=== PATIENT | male | born 1955 | race Caucasian/White ===

== ENCOUNTER 2019-12-17 15:11 | Outpatient (CLI) | payer MEDICARE, SELFPAY ==
--- NOTE | ~2019-12-17 | XR_ITS ---
EXAMINATION: XR chest 2V 12/17/2019 15:39 INDICATION: Cough and shortness of breath PROCEDURE: PA and lateral views of the chest COMPARISON: No prior studies for comparison. FINDINGS: The lungs are clear. The cardiomediastinal silhouette is within normal limits. There are no pleural effusions. There is no pneumothorax suspected. IMPRESSION: 1: NO ACUTE CARDIOPULMONARY DISEASE. Reviewed, dictated and finalized at location B. 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
== END 2019-12-17 15:12 | disposition home or self-care (01) ==
PROVIDERS: PCP Family Medicine; Visit Provider Nurse Practitioner Family
DX: R05 Cough (principal)
CPT/HCPCS: 71046

== ENCOUNTER → 2020-03-28 10:28 | Outpatient (REF) | payer MEDICARE, SELFPAY | LOC: ANHLAB 10:28 | PROVIDERS: PCP Family Medicine; Visit Provider Nurse Practitioner | DX: C44.719 Basal cell carcinoma of skin of left lower limb, including hip (principal) | CPT/HCPCS: 88305 ==

== ENCOUNTER → 2020-05-08 08:59 | Outpatient (REF) | payer MEDICARE, SELFPAY | LOC: ANHLAB 08:59 | PROVIDERS: PCP Family Medicine; Visit Provider Nurse Practitioner | DX: C44.719 Basal cell carcinoma of skin of left lower limb, including hip (principal) | CPT/HCPCS: 88305; 88331 ==

== ENCOUNTER → 2020-06-13 10:55 | Outpatient (CLI) | payer MEDICARE, SELFPAY ==
--- NOTE | ~2020-06-13 | XR_ITS ---
EXAMINATION: XR lumbar spine 2-3V DATE: 06/13/2020 11:38 INDICATION: Low back pain TECHNIQUE: Anteroposterior and lateral views of the lumbar spine, and cone-down lateral view of the l umbosacral junction were obtained. COMPARISON: None. FINDINGS: There is no fracture, dislocation, or subluxation. The vertebral body heights and alignment are normal. There is mild loss of intervertebral disc space height throughout the lumbar spine. Mild facet osteoarthritis is noted in the lower lumbar spine. Small degenerative osteophytes project from the anterior endplates of multiple vertebral bodies. Surgical clips in the right upper quadrant are likely from prior cholecystectomy. IMPRESSION: 1. Mild lumbar spondylosis without acute findings. Reviewed, dictated and finalized at location A.
== END ==
PROVIDERS: PCP Physician Assistant Medical; Visit Provider Physician Assistant Medical
DX: M47.896 Other spondylosis, lumbar region (principal)
CPT/HCPCS: 72100

== ENCOUNTER → 2021-03-27 10:10 | Outpatient (REF) | payer MEDICARE, SELFPAY | LOC: ANHLAB 10:10 | PROVIDERS: PCP Family Medicine; Visit Provider Nurse Practitioner | DX: C44.42 Squamous cell carcinoma of skin of scalp and neck (principal) | CPT/HCPCS: 88305 ==

== ENCOUNTER → 2021-05-14 10:34 | Outpatient (REF) | payer MEDICARE, SELFPAY | LOC: ANHLAB 10:34 | PROVIDERS: PCP Family Medicine; Visit Provider Nurse Practitioner | DX: C44.42 Squamous cell carcinoma of skin of scalp and neck (principal) | CPT/HCPCS: 88305; 88331 ==

== ENCOUNTER → 2022-05-14 13:29 | Outpatient (REF) | payer MEDICARE, SELFPAY | LOC: ANHLAB 13:29 | PROVIDERS: PCP Family Medicine; Visit Provider Nurse Practitioner | DX: C44.612 Basal cell carcinoma of skin of right upper limb, including shoulder (principal) | CPT/HCPCS: 88305 ==

== ENCOUNTER 2022-08-08 10:20 | Outpatient (RCR) | payer MEDICARE, SELFPAY ==
--- NOTE | 2022-08-08 11:54 | PTOPEVAL1 ---
Assessment and note entered by Dianne Luna, PT Evaluation Information Assessment Status Evaluation Diagnosis ataxia, dizziness Onset about month ago Subjective Information problems controlling feet when walking, went forward and could not stop, few of the falls were backwards; in past 2 months fallen 12 times, all occur when walking; use the cane and it helps; can get himself up off the floor when fall--get onto knees and pull self up with arms; did not have any testing done; previously did about 1 &1/ 2 to 2 miles walking for fitness, not done about 2 months; reports head feels like going around, worse when tired; feel better when get a good night's rest; Reported Pain Level Pain Score Self Report Additional Pain Score Comments range 0-10/10 in low back; onset about 1 month ago when fell and hit back on bathtub; sharp pain increases when do more activity; use muscle cream; Assessment PT Clinical Summary Paul has the diagnosis of ataxia and dizziness. He reports multiple falls in the past few months, occur when walking and lose balance--legs get going and cannot stop; Previously he walked for fitness, but has not been doing. With the evaluation, he has weakness of LE's and trunk, decreased walking and activity tolerance-- had SOB with activity; Tinetti gait/balance score is 13/28= high risk for falls; 2 minute walking distance of 320'; increased 5 reps sit/stand time; unsafe with stand to sit transfer; poor gait and mobility, almost falling several times during session; poor gait pattern with shuffling and leaning forward. With brief vestibular evaluation--he has hearing issues, reports of excessive ear wax, increased thirst and head going around--worse when he is tired. He is on multiple meds. Will monitor vestibular issues during treatment, but will start focus on strength and balance. Skilled PT services are indicated for therapeutic exercises and activities to increase LE strength, gait, transfer and balance skills, to improve safety with mobility and decrease risk for future falls. Will educate pt on gait pattern, assistive device as indicated and home exercise program; Address vestibular is
--- NOTE | 2022-08-15 13:02 | PCPTNOTE ---
PHYSICAL THERAPY DISCHARGE 08-15-22 Attending Provider: Jason Tian MD Patient:Paul Hernandez Date of :1955 Patient called today and left a message to cancel all of his PT appointments, due to going to receive [facility] therapy. Therefore, he will be discharged at this time. He had a PT evaluation only on 08/08/2022, for the diagnosis of ataxia and dizziness. Thank you for referring this patient to [facility].
== END 2022-08-15 15:16 | disposition home or self-care (01) ==
LOC: ANHPT 10:20
PROVIDERS: PCP Family Medicine; Visit Provider Family Medicine
DX: R42 Dizziness and giddiness (principal)
CPT/HCPCS: 97110; 97162

== ENCOUNTER 2022-08-12 09:06 | Outpatient (NON) | payer MEDICARE, SELFPAY | END 2022-08-12 09:07 | disposition home or self-care (01) | LOC: ANHLAB 08-27 09:06 | PROVIDERS: PCP Family Medicine; Visit Provider Nurse Practitioner | DX: C44.612 Basal cell carcinoma of skin of right upper limb, including shoulder (principal) | CPT/HCPCS: 88305; 88331 ==

== ENCOUNTER 2023-05-20 12:35 | Outpatient (NON) | payer MEDICARE, SELFPAY | END 2023-05-20 12:36 | disposition home or self-care (01) | PROVIDERS: PCP Family Medicine; Visit Provider Nurse Practitioner | DX: C44.629 Squamous cell carcinoma of skin of left upper limb, including shoulder (principal) | CPT/HCPCS: 88305 ==

== ENCOUNTER 2023-07-12 13:02 | Emergency (ER) | payer MEDICARE, SELFPAY ==
[2023-07-12] VITALS (18 sets, daily range): BP systolic 107–128; BP diastolic 70–87; PULSE 74–89; RESP 13–20; TEMP 36.6; O2SAT 94–99
--- NOTE | ~2023-07-12 | XR_ITS ---
EXAM: XR lumbar spine 2-3V DATE: 07/12/2023 14:42 HISTORY: fall, hit mid back on side of bathtub . COMPARISON: 06/13/2020. FINDINGS: 5 nonrib-bearing lumbar-type vertebral bodies. Pedicles intact. Normal vertebral body alig nment. Stable mild anterior wedge deformity at L1, the remaining vertebral body heights are preserved . Multilevel degenerative disc disease. Multilevel facet arthropathy. No fracture or dislocation. Aor tic calcifications without evident aneurysm IMPRESSION: No acute fracture recommended malalignment detected in the lumbar spine. Reviewed, dictated and finalized at location K. IMPRESSION: No acute fracture recommended malalignment detected in the lumbar s pine.
--- NOTE | ~2023-07-12 | XR_ITS ---
EXAM: XR thoracic spine 3V DATE: 07/12/2023 14:42 HISTORY: fall, hit mid back on side of bathtub . COMPARISON: None available. FINDINGS: Cholecystomy clips. Vertebral body alignment intact. Vertebral body heights preserved. Mult ilevel mild disc space narrowing. Multilevel bridging anterior osteophytes. No traumatic malalignment or fracture. Visualized lung parenchyma is clear. IMPRESSION: No acute fracture or traumatic malalignment detected in the thoracic spine. Reviewed, dictated and finalized at location K. IMPRESSION: No acute fracture or traumatic malalignment detected in the thoraci c spine.
--- NOTE | ~2023-07-12 | CT_ITS ---
EXAMINATION: CT diagnostic chest wo con DATE: 07/12/2023 14:19 INDICATION: fall TECHNIQUE: Computed tomography (CT) of the chest was performed with 100 mL Omnipaque-350 intravenous contrast. Automated exposure control and iterative reconstruction technique were employed. The dose-l ength product was 595.46 mGy-cm. COMPARISON: 12/17/2019. FINDINGS: CHEST: Thoracic aorta: No significant dilation or calcification. Lung parenchyma and airways: Lungs and airways are clear. Thoracic inlet, axillae and chest wall: No thyroid or soft tissue mass. No axillary lymphadenopathy. Mediastinum: No mass or lymphadenopathy. Heart and pericardium: Mild cardiomegaly. No pericardial effusion. Coronary artery calcifications: Moderate. Pleura: No effusion or mass. Upper abdomen: No significant finding. Thoracic bones: No acute osseous finding in the chest. IMPRESSION: No acute traumatic thoracic process detected. Reviewed, dictated and finalized at location K.
--- NOTE | 2023-07-12 13:30 | ED.FALL ---
HPI - Fall General Chief Complaint: Fall Stated Complaint: fall - back pain Time Seen by Provider: 07/12/23 13:12 Source: patient and EMS Mode of arrival: EMS Limitations: no limitations History of Present Illness HPI Narrative: 67 years old white female slipped off the toilet hit the back across the edge of a hot tub. Bathtub was roughly 1 foot away from his back. Patient was sitting on the toilet at that time. Complaining of thoracic back pain across. He denies any other injuries. Pain worse with certain movement and better if he remains still. Related Data Home Medications Medication Instructions Recorded Confirmed aspirin 81 mg tablet,delayed 81 mg PO DAILY 08/30/19 07/11/23 release multivitamin 1 cap PO DAILY 08/30/19 07/11/23 dapagliflozin propanediol 10 mg 10 mg PO QAM 03/20/23 07/11/23 tablet (Farxiga) ferrous sulfate 325 mg (65 mg 325 mg PO ONCE 07/11/23 07/11/23 iron) tablet Allergies Allergy/AdvReac Type Severity Reaction Status Date / Time No Known Allergies Allergy Verified 07/11/23 08:04 Review of Systems Review of Systems: All systems reviewed & are unremarkable except as noted in HPI and below PMFSH Past Medical History Medical History Abnormal electroretinogram [ERG] Abnormal results of thyroid function studies Adult BMI 33.0-33.9 kg/sq m Ataxia BMI 34.0-34.9,adult BMI 36.0-36.9,adult BMI 37.0-37.9, adult BMI over 35 Body mass index [BMI] 37.0-37.9, adult Candidiasis of skin History of SCC (squamous cell carcinoma) of skin Iron deficiency anemia Loss of balance Microalbuminuria Neuropathy Overweight Surgical History Surgical History H/O right knee surgery Hx of heart artery stent Family History Family History Father Diabetes mellitus Mother Diabetes mellitus Family history of Alzheimer's disease Sibling Multiple sclerosis Diabetes mellitus Social History Social History Smoking status: Never smoker Second hand tobacco smoke exposure: No Alcohol intake: current Drinks per week: 6 Substance use: current Substance use type: marijuana Lack of Transportation: No Lack of Food: Never True Current Housing: I Have Housing Concerned About Future Housing: No Difficulty Paying Gas/Electric Bills: No Difficulty Paying for Meds: No Currently Unemployed: No Education: High School Diploma/GED Difficulty w/ Childcare or Family Care: No Living arrangements: with family 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 by the patient): Male Exam Narrative: General appearance: Well-developed, well-nourished Skin: Normal color Head: Normocephalic, nontraumatic Eyes: Clear conjunctiva ENT: Oropharynx normal, ears normal, nose normal Neck: Supple, nontender Chest and respiratory: Airway patent, no respiratory distress, no accessory muscle use Heart: Regular rate/rhythm Abdomen: Soft, nontender, no organomegaly, quiet bowel sounds Vascular: Normal peripheral pulses, normal capillary refill. Musculoskeletal: Diffuse tenderness across thoracolumbar area, no bruises, no swelling or rash, limited range of motion at that area. Neurologic: Alert and oriented ?3, TRAFFIC INSPECTOR is normal as tested, no gross motor deficit Course Reevaluation(s) Reevaluation #1: Feeling much better after IV Dilaudid. Date: 07/12/23 Time: 15:46 Vital Signs Vital signs: Vital Signs
[2023-07-12] MEDS: ONDANSETRON INJ 4 MG/2 ML VIAL IV PUSH (13:59)
[2023-07-12] MEDS: HYDROmorphone HCL INJ (*CRX) 1 MG/ML SYR 0.5 MG IV PUSH (13:59)
== END 2023-07-12 15:55 | disposition home or self-care (01) ==
PROVIDERS: Emergency Provider Emergency Medicine; PCP Family Medicine
DX: S29.9XXA Unspecified injury of thorax, initial encounter (principal); D50.9 Iron deficiency anemia, unspecified; G62.9 Polyneuropathy, unspecified; E66.3 Overweight; Z68.30 Body mass index [BMI] 30.0-30.9, adult; Z95.5 Presence of coronary angioplasty implant and graft; Z85.828 Personal history of other malignant neoplasm of skin; W18.12XA Fall from or off toilet with subsequent striking against object, initial encounter
CPT/HCPCS: 71250; 72072; 72100; 96374; 96375; 99284; J1170; J2405

== ENCOUNTER 2023-08-08 20:28 | Emergency (ER) | payer MEDICARE, SELFPAY ==
--- NOTE | ~2023-08-08 | CT_ITS ---
EXAMINATION: CT diagnostic chest wo con DATE: 08/08/2023 21:28 INDICATION: Chest pain after fall TECHNIQUE: Computed tomography (CT) of the chest was performed without intravenous contrast. The dose -length product (DLP) was 1026.38 mGy-cm. Automated exposure control and iterative reconstruction thien hnique were employed. COMPARISON: 07/12/2023 FINDINGS: There is mild dependent atelectasis. The lungs are free of focal airspace opacities. No ple ural effusion or pneumothorax. There appears to be an anterior fracture of the left fourth rib at the costochondral junction. There are healed posteromedial fractures of the left 10th and 11th ribs. No pathologically enlarged thoracic lymph nodes are identified. The heart size is normal. There is calci fied coronary artery atherosclerosis. Changes of cholecystectomy are noted. There is cortical scarrin g of the kidneys. IMPRESSION: 1. Probable anterior fracture of the left fourth rib at the costochondral junction. Reviewed, dictated and finalized at location F. IMPRESSION: 1. Probable anterior fracture of the left fourth rib at the costochondral junct ion.
[2023-08-08 20:31] VITALS: BP 107/71; PULSE 96; RESP 16; TEMP 36.4; O2SAT 98
--- NOTE | 2023-08-08 20:47 | ECG_ITS ---
Measurements Intervals [place] Rate: 89 P: 25 NH: 168 QRS: 13 QRSD: 88 T: 59 QT: 341 QTc: 416 Interpretive Statements SINUS RHYTHM POSSIBLE ANTERIOR MYOCARDIAL INFARCTION [30 ms Q WAVE IN V3/V4, OR R < 0.2 mV IN V4], OF INDETERMINATE AGE PROBABLE INFERIOR MYOCARDIAL INFARCTION [35 ms Q WAVE IN II/aVF], OF INDETERMINATE AGE LOW-VOLTAGE QRS IN PRECORDIAL LEADS ABNORMAL ECG NO PREVIOUS ECG AVAILABLE FOR COMPARISON Electronically Signed On 08-09-2023 14:36:32 CDT by Jhonny Frazier M.D.
--- NOTE | 2023-08-08 20:55 | ED.GENADULT ---
HPI - General Adult General Chief complaint: Fall Stated complaint: Fall onto tv tray, cp with movement Time Seen by Provider: 08/08/23 20:53 Source: patient Mode of arrival: EMS Limitations: no limitations History of Present Illness HPI narrative: This is a 67-year-old male who presents to the ED via EMS with chief complaint of a fall and subsequent chest pain occurring this evening prior to arrival. Patient reports that he was carrying a TV dinner tray/stand when he was walking through the living room today. Reports that the legs of the tray swelling out and caused him to stumble and he fell onto the tray and onto the ground. Denies any preceding chest pain, shortness of breath or syncope. Denies head injury. He takes a baby aspirin daily. Denies any further site of pain or injury. Denies LOC or head injury. States that the Toradol by EMS gave helped his pain greatly. Related Data Home Medications Medication Instructions Recorded Confirmed aspirin 81 mg tablet,delayed 81 mg PO DAILY 08/30/19 07/11/23 release multivitamin 1 cap PO DAILY 08/30/19 07/11/23 dapagliflozin propanediol 10 mg 10 mg PO QAM 03/20/23 07/11/23 tablet (Farxiga) ferrous sulfate 325 mg (65 mg 325 mg PO ONCE 07/11/23 07/11/23 iron) tablet Allergies Allergy/AdvReac Type Severity Reaction Status Date / Time No Known Allergies Allergy Verified 08/08/23 20:37 Review of Systems Review of Systems: All systems as dictated in HPI [facility] Past Medical History Medical History Abnormal electroretinogram [ERG] Abnormal results of thyroid function studies Adult BMI 33.0-33.9 kg/sq m Ataxia BMI 34.0-34.9,adult BMI 36.0-36.9,adult BMI 37.0-37.9, adult BMI over 35 Body mass index [BMI] 37.0-37.9, adult Candidiasis of skin History of SCC (squamous cell carcinoma) of skin Iron deficiency anemia Loss of balance Microalbuminuria Neuropathy Overweight Surgical History Surgical History H/O right knee surgery Hx of heart artery stent Family History Family History Father Diabetes mellitus Mother Diabetes mellitus Family history of Alzheimer's disease Sibling Multiple sclerosis Diabetes mellitus Social History Social History Smoking status: Never smoker Second hand tobacco smoke exposure: No Alcohol intake: current Drinks per week: 6 Substance use: current Substance use type: marijuana Lack of Transportation: No Lack of Food: Never True Current Housing: I Have Housing Concerned About Future Housing: No Difficulty Paying Gas/Electric Bills: No Difficulty Paying for Meds: No Currently Unemployed: No Education: High School Diploma/GED Difficulty w/ Childcare or Family Care: No Living arrangements: with family 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 by the patient): Male Exam Narrative: GENERAL: Well-appearing, well-nourished, and in no acute distress. HEAD: Normocephalic, atraumatic. EYES: PERRLA and EOMI. ENT: Nares clear, no rhinorrhea or epistaxis. Mucous membranes moist. Oropharynx without tonsillar hypertrophy exudate or other lesions. NECK: Supple. No adenopathy or masses. CHEST: No respiratory distress. Clear to auscultation. No wheezes rales or rhonchi. Mild anterior chest wall tenderness at the left costochondral region. HEART: Regular rate and rhythm. No murmur heard. Normal peripheral pulses. ABDOMEN: Soft, nontender, nondistended, normal active bowel sounds. MSK: Normal range of motion. No edema. SKIN: Warm, dry, no rash. NEURO: Alert and oriented x3. No focal deficits. PSYCH: Normal mood and affect. Course Vital Signs Vital signs: Vital Signs Te
== END 2023-08-08 22:48 | disposition home or self-care (01) ==
PROVIDERS: Emergency Provider Physician Assistant; PCP Family Medicine
DX: S22.32XA Fracture of one rib, left side, initial encounter for closed fracture (principal); Z85.828 Personal history of other malignant neoplasm of skin; Z79.82 Long term (current) use of aspirin; W18.39XA Other fall on same level, initial encounter
CPT/HCPCS: 71250; 93005; 99284

== ENCOUNTER 2023-10-24 13:30 | Outpatient (RCR) | payer MEDICARE, SELFPAY ==
--- NOTE | 2023-09-09 15:32 | OPREHPOC ---
Outpatient Therapy Plan of Care This is a Multidisciplinary Plan of Care that may contain components documented by all disciplines (PT, OT, and ST.) PT Problem 1 PT Problem #1 Knowledge Deficit PT Goal 1 Goal 1* indep with HEP 2* correct use of assistive gait device PT Problem 2 PT Problem #2 Impaired Strength PT Goal 1 Goal increase LE strength, to improve mobility skills and decrease fall risk: pt perform 20 reps with good control 1* R supine SLR 2* L supine SLR 3* R supine hip abduction 4* L supine hip abduction 5* sitting ankle circles R 6* sitting ankle circles L 7* sit/stand without use of UE x 2 reps 18 seat PT Problem 3 PT Problem #3 Impaired Functional Mobil PT Goal 1 Goal 1* TUG with assistive device 18 seconds 2* Tinetti balance score of 24/28 3* 2 minute walking test distance of 250' with assistive device 4* 5 reps sit/stand time of 18 second with use of 1 UE 5* pt report NO falls
--- NOTE | 2023-09-09 15:33 | PTOPEVAL1 ---
Assessment and note entered by Dianne Luna, PT Evaluation Information Assessment Status Evaluation Diagnosis gait and imbalance, LBP Onset December 2022 Subjective Information decreased walking and balance; in the past 6 months have had about 10 falls--2 recent falls due to safety--carrying suitcase and something else in his hands; is not able to get up off the floor have to call EMT's; is getting neuropathy treatment for his legs at chiropractors office--vibration, stim to feet, nutrients to drink and ointments, walk on treadmill; have seen neurologist and had gabapentin only- stopped going about 1 yr ago; Activity: have 2 entry steps from garage; have chair lift on basement stairs; does light cleaning and home tasks; indep with bathing and dressing except socks; live with Ivy--she assist with socks.use motorized scooter for shopping- does not walk long distances; use cane about past year; have wheeled walker at home, but not using; have low back pain due to falls; GOAL: walk on his own without any problems; Reported Pain Level Pain Score 5: Self Report Additional Pain Score Comments numbness in both legs Assessment PT Clinical Summary Don has the diagnosis of gait imbalance, falls. And order from Sept for back pain. He reports gradual decrease strength of legs, with falls and have back pain due to multiple falls. He uses a cane all the time and does not want to use a wheeled walker-- get tangled up in it. He no longer drives due to weakness and significant other provides transportation. His medical history includes neuropathy of both legs, R TRK, diabetes. PT orders for back pain- but will defer those for now. With the evaluation: his gait pattern is Parkinson's like--festering, small, shuffling steps; he has weakness of both legs, with L weaker than R and decreased motor control; balance and gait scores
--- NOTE | 2023-09-15 15:40 | PCPTNOTE ---
Pt. did not show for 09/15/23 appointment.
--- NOTE | 2023-09-22 14:01 | PCPTNOTE ---
Pt NS visit this afternoon and was unable to be reached due to no Voicemail box set up.
--- NOTE | 2023-10-08 13:05 | PCPTNOTE ---
Patient called & cancelled scheduled appointment this date due to being sick.
--- NOTE | 2023-10-10 13:34 | PCPTNOTE ---
Patient did not show up for appointment 10/10/23.
--- NOTE | 2023-10-15 13:27 | PTOPPROG ---
Assessment and note entered by Dianne Luna, PT Progress report Information Assessment Status Progress Diagnosis gait and imbalance, LBP Onset December 2022 Subjective Information Don reports he is walking farther since coming for therapy; has had one fall since coming for therapy; is doing the neuropathy treatment exercises at home--electrical charges to feet; want to continue therapy; girlfriend reports he has improved and want him to continue; Discussion with them about seeing a neurologist--? Parkinson's Disease; he reports his dad had Parkinson's; Assessment PT Clinical Summary Don has received 8 PT sessions; he called/cancel 1 and did not show for 3 appointments. Compared to the initial evaluation: improved with R and L LE strength with supine exercises; sit/ stand transfer still requires 1 UE from 18 seat; TUG from 20 to 15 seconds; Tinetti balance by one, from to 10/09= high risk for falls; 2 minute walking test distance from 160' to 200' with cane; 5 reps sit/stand time from 26 to 21 seconds. Education for home exercises and safety with gait. He continues to use the cane, does not want to use the wheeled walker, Poor gait pattern and poor transfer safety with sit/stand transfer. His gait pattern is small, shuffling and festering steps-- -Parkinson's like gait; He has had one fall since starting therapy. Recommend neurology consult for R/O Parkinson's disease; his father had Parkinson's. Continue PT 1x/week for 5 weeks. Plan of Care Interventions Gait Training,Neuro Re-education,Patient/Caregiver Education,Therapeutic Activities,Therapeutic Exercise PT Services Indicated Yes Treatment Frequency and 1x/wk for 5 weeks Duration These treatments will address the objective and functional deficits as defined above. The patient will be advanced safely and appropriately in order for the patient to progress towards his/her prior level of function. Additional exercises will be introduced and as well as a comprehensive home exercise program upon discharge, if needed, ?to ensure carryover of functional gains achieved in the clinic. This treatment plan has been reviewed and agreement upon by the patient.
--- NOTE | 2023-10-15 13:27 | OPREHPOC ---
Outpatient Therapy Plan of Care This is a Multidisciplinary Plan of Care that may contain components documented by all disciplines (PT, OT, and ST.) PT Problem 1 PT Problem #1 Knowledge Deficit PT Goal 1 Goal 1* indep with HEP 2* correct use of assistive gait device Progress Partially Met Comment 10-15-23- progress met goal 1 continue towards goals PT Problem 2 PT Problem #2 Impaired Strength PT Goal 1 Goal increase LE strength, to improve mobility skills and decrease fall risk: pt perform 20 reps with good control 1* R supine SLR 2* L supine SLR 3* R supine hip abduction 4* L supine hip abduction 5* sitting ankle circles R 6* sitting ankle circles L 7* sit/stand without use of UE x 2 reps 18 seat Progress Partially Met Comment 10-15-23- progress met goals 2,5; cibtubye towards goals PT Problem 3 PT Problem #3 Impaired Functional Mobil PT Goal 1 Goal 1* TUG with assistive device 18 seconds 2* Tinetti balance score of 24/28 3* 2 minute walking test distance of 250' with assistive device 4* 5 reps sit/stand time of 18 second with use of 1 UE 5* pt report NO falls Progress Partially Met Comment 10-15-23- progress met goals 1,4 continue towards goals
--- NOTE | 2023-10-24 14:31 | PCPTNOTE ---
Cancelled pt appt due to new order of only once a week.
--- NOTE | 2023-10-31 13:58 | PCPTNOTE ---
Pt NS visit for second time this week.
--- NOTE | 2023-11-07 13:50 | PCPTNOTE ---
Pt no showed visit today. Called and voicemail has not be set up on his phone yet.
--- NOTE | 2023-11-10 08:59 | PTOPDC ---
Assessment and note entered by Dianne Luna, PT DISCHARGE Information Assessment Status Discharge - Pt Not Present Diagnosis gait and imbalance, LBP Onset December 2022 Assessment PT Clinical Summary Mr. Hernandez received 8 PT sessions, from Sep 09 to Oct 15. He then stopped attending his appointments He had a total of 5 no show and 1 call/cancel appointments. The goals were not assessed. Discharge PT due to pt stopped attending. Plan of Care PT Services Indicated No
== END 2023-11-10 09:52 | disposition home or self-care (01) ==
LOC: ANHPT 13:30
PROVIDERS: PCP Family Medicine; Visit Provider Family Medicine
DX: M54.50 Low back pain, unspecified (principal); R27.0 Ataxia, unspecified
CPT/HCPCS: 97110; 97116; 97162; 97530; 99199

== ENCOUNTER 2024-02-26 14:28 | Observation (INO) | payer MEDICARE, SELFPAY ==
[2024-02-26] VITALS (7 sets, daily range): BP systolic 111–129; BP diastolic 76–99; PULSE 81–95; RESP 13–19; TEMP 36.1–37.1; O2SAT 96–99; BMI 30.4
--- NOTE | ~2024-02-26 | CT_ITS ---
EXAMINATION: CTA brain carotid DATE: 02/26/2024 16:23 INDICATION: Vertigo. TECHNIQUE: Computed tomographic angiography (CTA) of the head was performed without and with 100 mL O mnipaque-350 intravenous contrast. CTA of the neck was performed with intravenous contrast. Automated exposure control and iterative reconstruction technique were employed. The dose-length product was 2 523.48 mGy-cm. Maximum intensity projection and volume rendered 3D-reconstructions were created by michele cotton technologist on a separate workstation. COMPARISON: None. FINDINGS: HEAD CTA: There are old lacunar infarcts in the bilateral basal ganglia. There are scattered areas of low attenuation in the cerebral white matter, which is within normal limits for the patient's age. T here is no intracranial hemorrhage, acute infarction, or abnormal intracranial mass lesion. The ventr icles are normal in size. There is mild mucosal thickening in the ethmoid sinuses. The orbits are nor mal. The mastoid air cells are normal. Left vertebral artery is dominant. There is no significant janice nosis of basilar artery or the posterior cerebral arteries. There is no significant stenosis of the i ntracranial internal carotid arteries or anterior or middle cerebral arteries. Anterior communicating artery is normal. The posterior communicating arteries are normal. NECK CTA: There is no significant stenosis of the vertebral arteries. There is plaque in the proximal internal carotid arteries. There is 0% stenosis of the proximal right internal carotid artery relati ve to normal distal artery lumen diameter (NASCET criteria). There is 0% stenosis of the proximal lef t internal carotid artery relative to normal distal artery lumen diameter. There is severe cervical s pondylosis. IMPRESSION: 1. 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 2. No aneurysm or significant intracranial arterial stenosis. 3. 0% stenosis of the proximal internal carotid arteries relative to normal distal artery lumen diame ters (NASCET criteria). Reviewed, dictated and finalized at location E. IMPRESSION: 1. 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 2. No aneurysm or significant intracranial arterial stenosis. 3. 0% stenosis of the proximal internal carotid arteries relative to normal dis hayden artery lumen diameters (NASCET criteria).
--- NOTE | ~2024-02-26 | XR_ITS ---
EXAMINATION: XR chest 2V DATE: 02/26/2024 15:36 INDICATION: Weakness. Falls. TECHNIQUE: Frontal and lateral views of the chest were obtained. COMPARISON: Chest 2 views 12/17/2019, chest CT 08/08/2023 FINDINGS: There is no pneumonia, pleural effusion, or pneumothorax. The heart size is normal. IMPRESSION: 1. No acute cardiopulmonary disease. Reviewed, dictated and finalized at location E.
[2024-02-26 14:35] LABS: Glucose Point of Care 193 mg/dl (65-105)
--- NOTE | 2024-02-26 15:03 | ECG_ITS ---
SEE SCANNED COPY FOR CONFIRMED REPORT MTDD
[2024-02-26 15:23] LABS: Basophils Percent Auto 0.3 % (0.2-1.2); Eosinophils Absolute Auto 0.2 K/mm3 (0-0.3); Eosinophils Percent Auto 2.2 % (0-4.4); Hematocrit 45.7 % (42.0-52.0); Hemoglobin 15.4 g/dL (14.0-18.0); Immature Granulocyte Absolute 0.04 K/mm3 (0.00-0.031); Immature Granulocyte Percent A 0.6 % (0-0.5); Lymphocytes Percent Auto 18.8 % (18.3-44.2); Mean Corpuscular HGB Conc 33.7 g/dl (32-36); Mean Corpuscular Hemoglobin 31.6 pg (26-34); Mean Corpuscular Volume 93.8 fl (80-100); Monocytes Absolute Auto 0.4 K/mm3 (0.1-0.6); Monocytes Percent Auto 5.2 % (2.6-8.5); Neutrophils Percent Auto 72.9 % (45.5-73.1); Platelet Count Result 200 k/mm3 (150-375); Red Blood Count 4.87 M/mm3 (4.6-6.20); Red Cell Distribution Width 13.2 % (11.5-14.5); White Blood Count 6.9 K/mm3 (4.5-10.0)
[2024-02-26 15:32] LABS: Alanine Aminotransferase 25 U/L (6-50); Albumin Level 4.3 g/dL (3.5-5.1); Alkaline Phosphatase 80 U/L (38-126); Anion Gap 6 mmol/L (4-12); Aspartate Amino Transferase 24 U/L (17-59); Bilirubin,Total 0.5 mg/dL (0.2-1.3); Blood Urea Nitrogen 11 mg/dL (9-20); Calcium 9.5 mg/dL (8.4-10.2); Carbon Dioxide 26 mmol/L (22-30); Chloride 105 mmol/L (98-107); Estimated CRCL calculation 75 ml/min; Estimated Glomerular Filt Rate > 60; Glucose 150 mg/dL (65-110); Potassium 3.9 mmol/L (3.4-5.0); Sodium 137 mmol/L (137-145)
--- NOTE | 2024-02-26 16:03 | ED.FALL ---
HPI - Fall General Chief Complaint: Fall Stated Complaint: fall, weak Time Seen by Provider: 02/26/24 15:08 History of Present Illness HPI Narrative: This is a 68-year-old male, with history of diabetes and hypertension, who presents to the emergency department complaining persistent vertigo and multiple falls. The patient states 5 days ago, he fell 4 times at home. He fell twice again in the last 3 days. He states he hit his head but did not lose consciousness. He denies use of blood thinners aside from aspirin. He complains of vertigo, worsened by change in position. He states he has taken meclizine previously with improvement. He denies ear pain, ringing in the ears, loss of hearing, weakness/numbness, change/loss of vision/hearing, chest pain or shortness of breath. He states he also has a history of neuropathy. Related Data Home Medications Medication Instructions Recorded Confirmed aspirin 81 mg tablet,delayed 81 mg PO DAILY 08/30/19 10/16/23 release multivitamin 1 cap PO DAILY 08/30/19 10/16/23 dapagliflozin propanediol 10 mg 10 mg PO QAM 03/20/23 10/16/23 tablet (Farxiga) ferrous sulfate 325 mg (65 mg 325 mg PO ONCE 07/11/23 10/16/23 iron) tablet lisinopril 20 mg tablet mg PO DAILY 10/16/23 10/16/23 Allergies Allergy/AdvReac Type Severity Reaction Status Date / Time No Known Allergies Allergy Verified 01/12/24 17:35 Review of Systems Review of Systems: All systems reviewed & are unremarkable except as noted in HPI and below PMFSH Past Medical History Medical History Abnormal electroretinogram [ERG] Abnormal results of thyroid function studies Adult BMI 33.0-33.9 kg/sq m Ataxia BMI 34.0-34.9,adult BMI 36.0-36.9,adult BMI 37.0-37.9, adult BMI over 35 Body mass index [BMI] 37.0-37.9, adult Candidiasis of skin Decreased independence with activities of daily living History of SCC (squamous cell carcinoma) of skin Hypertensive heart disease with heart failure Iron deficiency anemia Loss of balance Microalbuminuria Neuropathy Overweight Recurrent falls Surgical History Surgical History H/O right knee surgery Hx of heart artery stent Family History Family History Father Diabetes mellitus Mother Diabetes mellitus Family history of Alzheimer's disease Sibling Multiple sclerosis Diabetes mellitus Social History Social History Smoking status: Never smoker Second hand tobacco smoke exposure: No Alcohol intake: current Drinks per week: 6 Substance use: current Substance use type: marijuana Lack of Transportation: No Lack of Food: Never True Current Housing: I Have Housing Concerned About Future Housing: No Difficulty Paying Gas/Electric Bills: No Difficulty Paying for Meds: No Currently Unemployed: No Education: High School Diploma/GED Difficulty w/ Childcare or Family Care: No Living arrangements: with family 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 by the patient): Male Exam Narrative: GENERAL: Well-developed, well-nourished, and in no acute distress. HEAD: Normocephalic, atraumatic. EYES: PERRLA and EOMI. Nystagmus with fast phase towards the right ENT: Nares clear, no rhinorrhea or epistaxis. Mucous membranes moist. Oropharynx without tonsillar hypertrophy exudate or other lesions. Bilateral TMs pearly morales nonbulging CHEST: Clear to auscultation. No respiratory distress. No wheezes rales or rhonchi HEART: Regular rate and rhythm. No murmur heard. Normal peripheral pulses. ABDOMEN: Soft, nontender, nondistended, normal active bowel sounds. EXTREMITIES: Normal range of motion. No edema. SKIN: Warm, dry, no rash.
[2024-02-26 16:40] LABS: Appearance Urine Clear (Clear); Bilirubin Urine Negative (Negative); Blood Urine Negative (Negative); Color Urine Yellow (Yellow); Glucose Urine UA 2+ mg/dL (Negative); Ketones Urine Negative (Negative); Leukocyte Esterase Ur Negative LEU/UL (Negative); Nitrate Urine Negative (Negative); Protein Urine Negative (Negative); Specific Grav Ur 1.009 (1.001-1.035); Urobilinogen Urine 0.2 mg/dL (<2.0)
[2024-02-26 17:39] LABS: Add Urine Microscopic? NO
[2024-02-26 18:03] LABS: Glucose Point of Care 49 mg/dl (65-105)
--- NOTE | 2024-02-26 18:48 | PC.NURSE ---
This patient, Paul Hernandez, was admitted to 3 [facility] Surg Room 300-01. Patient/family oriented to hospital policies and general routines including ID bracelet, bed and alarms, visiting hours, pain management, procedures, bathroom and other care routines, personal items, smoking policy, room service/diet, and visiting hours. Information on how to activate the Rapid Response Team has been discussed. Patient/Family are encouraged to report perceived risks to care and to ask questions if they do not understand what they are told or what they should do.
[2024-02-26 19:00] LABS: Glucose Point of Care 129 mg/dl (65-105)
[2024-02-26 21:21] LABS: Glucose Point of Care 161 mg/dl (65-105)
--- NOTE | 2024-02-26 21:37 | PM.IMHP ---
H&P: HPI History of Present Illness Date/Time: 02/26/24 21:37 Chief Complaint: recurrent falls Narrative: this is a 68-year-old male with past medical history significant for insulin-dependent diabetes mellitus, diabetic peripheral neuropathy, gait disturbance. patient presents to the emergency room due to recurrent falls he attributes it to his peripheral neuropathy he was using his walker when he fell. Denies loss of consciousness, no chest pain, no palpitations, no dizziness, no focal weakness, no fevers no rigors no chills, no nausea no vomiting no diarrhea. EXAMINATION: XR chest 2V DATE: 02/26/2024 15:36 INDICATION: Weakness. Falls. TECHNIQUE: Frontal and lateral views of the chest were obtained. COMPARISON: Chest 2 views 12/17/2019, chest CT 08/08/2023 FINDINGS: There is no pneumonia, pleural effusion, or pneumothorax. The heart size is normal. IMPRESSION: 1. No acute cardiopulmonary disease. EXAMINATION: CTA brain carotid DATE: 02/26/2024 16:23 INDICATION: Vertigo. TECHNIQUE: Computed tomographic angiography (CTA) of the head was performed without and with 100 mL Omnipaque-350 intravenous contrast. CTA of the neck was performed with intravenous contrast. Automated exposure control and iterative reconstruction technique were employed. The dose-length product was 2523.48 mGy-cm. Maximum intensity projection and volume rendered 3D-reconstructions were created by the technologist on a separate workstation. COMPARISON: None. FINDINGS: HEAD CTA: There are old lacunar infarcts in the bilateral basal ganglia. There are scattered areas of low attenuation in the cerebral white matter, which is within normal limits for the patient's age. There is no intracranial hemorrhage, acute infarction, or abnormal intracranial mass lesion. The ventricles are normal in size. There is mild mucosal thickening in the ethmoid sinuses. The orbits are normal. The mastoid air cells are normal. Left vertebral artery is dominant. There is no significant stenosis of basilar artery or the posterior cerebral arteries. There is no significant stenosis of the intracranial internal carotid arteries or anterior or middle cerebral arteries. Anterior communicating artery is normal. The posterior communicating arteries are normal. NECK CTA: There is no significant stenosis of the vertebral arteries. There is plaque in the proximal internal carotid arteries. There is 0% stenosis of the proximal right internal carotid artery relative to normal distal artery lumen diameter (NASCET criteria). There is 0% stenosis of the proximal left internal carotid artery relative to normal distal artery lumen diameter. There is severe cervical spondylosis. IMPRESSION: 1. 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 2. No aneurysm or significant intracranial arterial stenosis. 3. 0% stenosis of the proximal internal carotid arteries relative to normal distal artery lumen diameters (NASCET criteria). Review of Systems Review of Systems: Recurrent falls, gait disturbance [facility] Past Medical History Medical History Abnormal electroretinogram [ERG] Abnormal results of thyroid function studies Adult BMI 33.0-33.9 kg/sq m Ataxia BMI 34.0-34.9,adult BMI 36.0-36.9,adult BMI 37.0-37.9, adult BMI over 35 Body mass index [BMI] 37.0-37.9, adult Candidiasis of skin Decreased independence with activities of daily living History of SCC (squamous cell carcinoma) of skin Hypertensive heart disease with heart failure Iron deficiency anemia Loss of balance Microalbuminuria Neuropathy Overweight Recurrent falls Surgical History Surgical History H/O right knee surgery Hx of heart artery stent Family History Family History Father Diabetes mellitus Mother Diabetes mellitus Family
[2024-02-26] MEDS: INSULIN GLARGINE (*BKC) 100 UNITS/ML 20 UNITS SUB-Q (22:12)
[2024-02-27 05:43] VITALS: BP 122/88; PULSE 86; RESP 18; TEMP 36.6; O2SAT 98
[2024-02-27 07:22] LABS: Basophils Percent Auto 0.3 % (0.2-1.2); Eosinophils Absolute Auto 0.2 K/mm3 (0-0.3); Eosinophils Percent Auto 2.1 % (0-4.4); Hematocrit 43.6 % (42.0-52.0); Hemoglobin 14.1 g/dL (14.0-18.0); Immature Granulocyte Absolute 0.04 K/mm3 (0.00-0.031); Immature Granulocyte Percent A 0.5 % (0-0.5); Mean Corpuscular HGB Conc 32.3 g/dl (32-36); Mean Corpuscular Hemoglobin 31.4 pg (26-34); Mean Corpuscular Volume 97.1 fl (80-100); Mean Platelet Volume 9.4 fl (7.4-10.4); Monocytes Absolute Auto 0.5 K/mm3 (0.1-0.6); Monocytes Percent Auto 6.2 % (2.6-8.5); Neutrophils Percent Auto 68.9 % (45.5-73.1); Platelet Count Result 199 k/mm3 (150-375); Red Blood Count 4.49 M/mm3 (4.6-6.20); Red Cell Distribution Width 13.3 % (11.5-14.5); White Blood Count 7.3 K/mm3 (4.5-10.0)
[2024-02-27 07:33] LABS: Anion Gap 5 mmol/L (4-12); Blood Urea Nitrogen 11 mg/dL (9-20); Calcium 8.7 mg/dL (8.4-10.2); Carbon Dioxide 28 mmol/L (22-30); Chloride 104 mmol/L (98-107); Estimated CRCL calculation 75 ml/min; Estimated Glomerular Filt Rate > 60; Glucose 186 mg/dL (65-110); Potassium 3.9 mmol/L (3.4-5.0); Sodium 137 mmol/L (137-145)
[2024-02-27 07:35] LABS: Glucose Point of Care 199 mg/dl (65-105)
[2024-02-27] MEDS: lisinopriL 20 MG TABLET PO (08:24)
[2024-02-27] MEDS: ASPIRIN 81 MG ENTERIC TABLET PO (08:24)
[2024-02-27] MEDS: PREGABALIN (*CRX) 50 MG CAPSULE 100 MG PO (08:24)
[2024-02-27] MEDS: EMPAGLIFLOZIN 25 MG TABLET BY MOUTH (08:25)
[2024-02-27] MEDS: ATORVASTATIN 40 MG TABLET BY MOUTH (08:25)
[2024-02-27] MEDS: amLODIPine BESYLATE 5 MG TABLET PO (08:25)
[2024-02-27] MEDS: PRIMIDONE 50 MG TABLET 100 MG BY MOUTH ×3 (08:25→16:58)
[2024-02-27 08:38] VITALS: BP 122/81
--- NOTE | 2024-02-27 08:41 | PM.IMPN ---
Progress Note: A&P Assessment and Plan (1) Recurrent falls: Code(s): R29.6 - Repeated falls Status: Acute (2) Hypertensive heart disease with heart failure: Code(s): I11.0 - Hypertensive heart disease with heart failure Status: Acute (3) Diabetic neuropathy: Qualifiers: Diabetes mellitus complication detail: diabetic autonomic neuropathy Diabetes mellitus type: type 2 Qualified Code(s): E11.43 - Type 2 diabetes mellitus with diabetic autonomic (poly)neuropathy Code(s): E11.40 - Type 2 diabetes mellitus with diabetic neuropathy, unspecified Status: Acute (4) Neuropathy of both feet: Code(s): G57.93 - Unspecified mononeuropathy of bilateral lower limbs Status: Acute (5) T2DM (type 2 diabetes mellitus): Code(s): E11.9 - Type 2 diabetes mellitus without complications Status: Acute (6) Vertigo: Code(s): R42 - Dizziness and giddiness Status: Acute (7) Iron deficiency anemia: Qualifiers: Iron deficiency anemia type: chronic blood loss Qualified Code(s): D50.0 - Iron deficiency anemia secondary to blood loss (chronic) Code(s): D50.9 - Iron deficiency anemia, unspecified Status: Acute Plan Recurrent falls Likely secondary to patient's vertigo CTA no acute findings 0% stenosis of the carotid Orthostatics pending UA negative PT OT/family requesting SNF Fall risk precautions EKG was sinus rhythm Vertigo Resume patient's meclizine changed from p.r.n. to scheduled PT OT with Vestibular therapy Fall precautions Diabetes Accu-Cheks a.c. HS sliding scale insulin resume patient's home long-acting Hemoglobin A1c goal less than 7 pending Diabetic diet Optimize Wally inhibitors and statins. Watch for hypoglycemia/hypoglycemic protocol ordered Anemia History of iron deficiency anemia Resume iron supplements Monitor H&H Transfuse if Hgb <7.0 HX HTN: Resumed home medications HX HLD: Resumed Statin HX neuropathy: Resume patient's Lyrica Code status: Full code per patient DVT prophylaxis: Lovenox Stress ulcer prophylaxis: Protonix 40 daily PT/OT notes: PT/OT family requesting SNF Disposition: Patient was admitted to the medical unit due to recurrent falls at home has history of vertigo will resume meclizine and order PT OT family at this time was requesting possible placement to Rehab. Time Spent With Patient Time with patient: 15 - 25 minutes Subjective Date/time seen: 02/27/24 08:41 Interval history: Admission: Medical Record This is a 68-year-old male with past medical history significant for insulin-dependent diabetes mellitus, diabetic peripheral neuropathy, gait disturbance. patient presents to the emergency room due to recurrent falls he attributes it to his peripheral neuropathy he was using his walker when he fell.? Denies loss of consciousness, no chest pain, no palpitations, no dizziness, no focal weakness, no fevers no rigors no chills, no nausea no vomiting no diarrhea. 02/26: Patient up in chair states he feels a little bit better today. He reports worsening weakness for the few weeks is agreeable to Rehab. Orthostatic BP pending, resumed his meclizine and ordered vestibular therapy. Review of Systems Review of Systems: Recurrent falls, gait disturbance All systems reviewed & are unremarkable except as noted in HPI and below Exam Narrative: Physical Exam: GENERAL: Alert and oriented x 3. No acute distress. EYES: EOMI. No scleral icterus. PERRLA. HEENT: Moist mucous membranes. LUNGS: Clear to auscultation bilaterally. No accessory muscle use. CARDIOVASCULAR: Regular rate and rhythm. No murmur. No JVD. S1-S2 ABDOMEN: Soft, mild tenderness and non-distended. No palpable masses. EXTREMITIES: No edema. Non-tender SKIN: No rashes or lesions. Skin warm, dry. NEUROLOGIC: No focal neurological deficits. CN II-XII grossl
[2024-02-27] MEDS: MECLIZINE HCL 25 MG TABLET PO ×2 (11:34→16:58)
[2024-02-27] MEDS: PANTOPRAZOLE 40 MG TABLET PO (11:34)
[2024-02-27 11:45] LABS: Glucose Point of Care 212 mg/dl (65-105)
[2024-02-27] MEDS: INSULIN ASPART (*BKC) 100 UNITS/ML 7 UNITS SUB-Q ×2 (11:59→16:54)
[2024-02-27 14:00] VITALS: BP 118/85; PULSE 96; RESP 16; TEMP 36.9; O2SAT 99
[2024-02-27 14:43] VITALS: BP 118/85; BP 130/50
[2024-02-27 16:43] LABS: Glucose Point of Care 215 mg/dl (65-105)
[2024-02-27 20:48] LABS: Glucose Point of Care 174 mg/dl (65-105)
[2024-02-27 21:19] VITALS: BP 143/89; PULSE 81; RESP 20; TEMP 36.8; O2SAT 98
[2024-02-27] MEDS: INSULIN GLARGINE (*BKC) 100 UNITS/ML 20 UNITS SUB-Q (22:27)
[2024-02-28 05:00] VITALS: BP 119/96; PULSE 69; RESP 16; TEMP 36.3; O2SAT 94
[2024-02-28 07:23] LABS: Glucose Point of Care 142 mg/dl (65-105)
[2024-02-28 08:00] VITALS: PULSE 94; RESP 20; O2SAT 96
[2024-02-28 08:16] LABS: Hematocrit 44.5 % (42.0-52.0); Hemoglobin 14.9 g/dL (14.0-18.0); Mean Corpuscular HGB Conc 33.5 g/dl (32-36); Mean Corpuscular Hemoglobin 31.9 pg (26-34); Mean Corpuscular Volume 95.3 fl (80-100); Mean Platelet Volume 9.1 fl (7.4-10.4); Platelet Count Result 216 k/mm3 (150-375); Red Blood Count 4.67 M/mm3 (4.6-6.20); Red Cell Distribution Width 13.3 % (11.5-14.5); White Blood Count 6.7 K/mm3 (4.5-10.0)
[2024-02-28 08:34] LABS: Alanine Aminotransferase 23 U/L (6-50); Alkaline Phosphatase 82 U/L (38-126); Anion Gap 6 mmol/L (4-12); Aspartate Amino Transferase 23 U/L (17-59); Bilirubin,Total 0.5 mg/dL (0.2-1.3); Blood Urea Nitrogen 15 mg/dL (9-20); Calcium 9.1 mg/dL (8.4-10.2); Carbon Dioxide 29 mmol/L (22-30); Chloride 104 mmol/L (98-107); Estimated CRCL calculation 69 ml/min; Estimated Glomerular Filt Rate > 60; Glucose 134 mg/dL (65-110); Sodium 139 mmol/L (137-145)
[2024-02-28 09:08] VITALS: O2SAT 93
--- NOTE | 2024-02-28 09:37 | PM.IMPN ---
Progress Note: A&P Assessment and Plan (1) Recurrent falls: Code(s): R29.6 - Repeated falls Status: Acute (2) Hypertensive heart disease with heart failure: Code(s): I11.0 - Hypertensive heart disease with heart failure Status: Acute (3) Diabetic neuropathy: Qualifiers: Diabetes mellitus complication detail: diabetic autonomic neuropathy Diabetes mellitus type: type 2 Qualified Code(s): E11.43 - Type 2 diabetes mellitus with diabetic autonomic (poly)neuropathy Code(s): E11.40 - Type 2 diabetes mellitus with diabetic neuropathy, unspecified Status: Acute (4) Neuropathy of both feet: Code(s): G57.93 - Unspecified mononeuropathy of bilateral lower limbs Status: Acute (5) T2DM (type 2 diabetes mellitus): Code(s): E11.9 - Type 2 diabetes mellitus without complications Status: Acute (6) Vertigo: Code(s): R42 - Dizziness and giddiness Status: Acute (7) Iron deficiency anemia: Qualifiers: Iron deficiency anemia type: chronic blood loss Qualified Code(s): D50.0 - Iron deficiency anemia secondary to blood loss (chronic) Code(s): D50.9 - Iron deficiency anemia, unspecified Status: Acute Plan Recurrent falls Likely secondary to patient's vertigo CTA no acute findings 0% stenosis of the carotid Orthostatics pending UA negative PT OT/family requesting SNF Fall risk precautions EKG was sinus rhythm Vertigo Resume patient's meclizine changed from p.r.n. to scheduled PT OT with Vestibular therapy Fall precautions Diabetes Accu-Cheks a.c. HS sliding scale insulin resume patient's home long-acting Hemoglobin A1c goal less than 7 pending Diabetic diet Optimize Wally inhibitors and statins. Watch for hypoglycemia/hypoglycemic protocol ordered Anemia History of iron deficiency anemia Resume iron supplements Monitor H&H Transfuse if Hgb <7.0 HX HTN: Resumed home medications HX HLD: Resumed Statin HX neuropathy: Resume patient's Lyrica Code status: Full code per patient DVT prophylaxis: Lovenox Stress ulcer prophylaxis: Protonix 40 daily PT/OT notes: PT/OT recommending SNF Disposition: Patient was admitted to the medical unit due to recurrent falls at home has history of vertigo will resume meclizine and order PT OT plan is for discharge to SNF. Time Spent With Patient Time with patient: 15 - 25 minutes Subjective Date/time seen: 02/28/24 09:37 Interval history: Admission: Medical Record This is a 68-year-old male with past medical history significant for insulin-dependent diabetes mellitus, diabetic peripheral neuropathy, gait disturbance. patient presents to the emergency room due to recurrent falls he attributes it to his peripheral neuropathy he was using his walker when he fell.? Denies loss of consciousness, no chest pain, no palpitations, no dizziness, no focal weakness, no fevers no rigors no chills, no nausea no vomiting no diarrhea. 02/26: Patient up in chair states he feels a little bit better today. He reports worsening weakness for the few weeks is agreeable to Rehab. Orthostatic BP pending, resumed his meclizine and ordered vestibular therapy. 02/27: Patient pleasant in no acute distress however is impulsive. Patient's orthostatics were negative however states he is feeling better with vestibular therapy and meclizine. Currently just waiting on insurance authorization for snf facility. Labs unremarkable and vital stable. Review of Systems Review of Systems: Recurrent falls, gait disturbance All systems reviewed & are unremarkable except as noted in HPI and below Exam Narrative: Physical Exam: GENERAL: Alert and oriented x 3. No acute distress. EYES: EOMI. No scleral icterus. PERRLA. HEENT: Moist mucous membranes. LUNGS: Clear to auscultation bilaterally. No accessory muscle use. CARDIOVA
[2024-02-28] MEDS: lisinopriL 20 MG TABLET PO (09:55)
[2024-02-28] MEDS: PRIMIDONE 50 MG TABLET 100 MG BY MOUTH ×3 (09:55→17:54)
[2024-02-28] MEDS: PREGABALIN (*CRX) 50 MG CAPSULE 100 MG PO (09:55)
[2024-02-28] MEDS: ASPIRIN 81 MG ENTERIC TABLET PO (09:55)
[2024-02-28] MEDS: MECLIZINE HCL 25 MG TABLET PO ×2 (09:56→17:54)
[2024-02-28] MEDS: EMPAGLIFLOZIN 25 MG TABLET BY MOUTH (10:01)
[2024-02-28] MEDS: ATORVASTATIN 40 MG TABLET BY MOUTH (10:01)
[2024-02-28] MEDS: PANTOPRAZOLE 40 MG TABLET PO (10:02)
[2024-02-28] MEDS: amLODIPine BESYLATE 5 MG TABLET PO (10:02)
[2024-02-28] MEDS: INSULIN ASPART (*BKC) 100 UNITS/ML 7 UNITS SUB-Q ×3 (10:04→17:54)
[2024-02-28 11:44] LABS: Glucose Point of Care 213 mg/dl (65-105)
[2024-02-28 14:00] VITALS: BP 145/91; PULSE 94; RESP 20; TEMP 36.6; O2SAT 96
[2024-02-28 16:39] LABS: Glucose Point of Care 175 mg/dl (65-105)
[2024-02-28] MEDS: INSULIN GLARGINE (*BKC) 100 UNITS/ML 20 UNITS SUB-Q (21:08)
[2024-02-28 21:10] LABS: Glucose Point of Care 172 mg/dl (65-105)
[2024-02-28 21:14] VITALS: BP 137/94; PULSE 78; RESP 18; TEMP 36.8; O2SAT 95
[2024-02-29 06:00] VITALS: BP 157/96; PULSE 72; RESP 18; TEMP 36.7; O2SAT 100
[2024-02-29 06:31] LABS: Hematocrit 48.3 % (42.0-52.0); Mean Corpuscular HGB Conc 33.1 g/dl (32-36); Mean Corpuscular Hemoglobin 31.6 pg (26-34); Mean Corpuscular Volume 95.5 fl (80-100); Platelet Count Result 212 k/mm3 (150-375); Red Blood Count 5.06 M/mm3 (4.6-6.20); Red Cell Distribution Width 13.5 % (11.5-14.5); White Blood Count 7.2 K/mm3 (4.5-10.0)
[2024-02-29 06:36] LABS: Alanine Aminotransferase 28 U/L (6-50); Albumin Level 4.3 g/dL (3.5-5.1); Alkaline Phosphatase 81 U/L (38-126); Anion Gap 9 mmol/L (4-12); Aspartate Amino Transferase 37 U/L (17-59); Bilirubin,Total 0.8 mg/dL (0.2-1.3); Blood Urea Nitrogen 16 mg/dL (9-20); Calcium 9.2 mg/dL (8.4-10.2); Carbon Dioxide 23 mmol/L (22-30); Chloride 105 mmol/L (98-107); Estimated CRCL calculation 75 ml/min; Estimated Glomerular Filt Rate > 60; Glucose 125 mg/dL (65-110); Potassium 4.3 mmol/L (3.4-5.0); Sodium 137 mmol/L (137-145)
[2024-02-29 07:33] LABS: Glucose Point of Care 139 mg/dl (65-105)
[2024-02-29] MEDS: INSULIN ASPART (*BKC) 100 UNITS/ML 7 UNITS SUB-Q ×3 (08:47→16:37)
[2024-02-29] MEDS: ASPIRIN 81 MG ENTERIC TABLET PO (08:48)
[2024-02-29] MEDS: EMPAGLIFLOZIN 25 MG TABLET BY MOUTH (08:48)
[2024-02-29] MEDS: PANTOPRAZOLE 40 MG TABLET PO (08:48)
[2024-02-29] MEDS: PREGABALIN (*CRX) 50 MG CAPSULE 100 MG PO (08:48)
[2024-02-29] MEDS: amLODIPine BESYLATE 5 MG TABLET PO (08:48)
[2024-02-29] MEDS: ATORVASTATIN 40 MG TABLET BY MOUTH (08:48)
[2024-02-29] MEDS: MECLIZINE HCL 25 MG TABLET PO ×2 (08:48→16:37)
[2024-02-29] MEDS: lisinopriL 20 MG TABLET PO (08:48)
[2024-02-29] MEDS: PRIMIDONE 50 MG TABLET 100 MG BY MOUTH ×3 (08:48→16:37)
[2024-02-29] MEDS: INSULIN GLARGINE (*BKC) 100 UNITS/ML 60 UNITS SUB-Q (08:51)
--- NOTE | 2024-02-29 09:25 | PM.IMPN ---
Progress Note: A&P Assessment and Plan (1) Recurrent falls: Code(s): R29.6 - Repeated falls Status: Acute (2) Hypertensive heart disease with heart failure: Code(s): I11.0 - Hypertensive heart disease with heart failure Status: Acute (3) Diabetic neuropathy: Qualifiers: Diabetes mellitus complication detail: diabetic autonomic neuropathy Diabetes mellitus type: type 2 Qualified Code(s): E11.43 - Type 2 diabetes mellitus with diabetic autonomic (poly)neuropathy Code(s): E11.40 - Type 2 diabetes mellitus with diabetic neuropathy, unspecified Status: Acute (4) Neuropathy of both feet: Code(s): G57.93 - Unspecified mononeuropathy of bilateral lower limbs Status: Acute (5) T2DM (type 2 diabetes mellitus): Code(s): E11.9 - Type 2 diabetes mellitus without complications Status: Acute (6) Vertigo: Code(s): R42 - Dizziness and giddiness Status: Acute (7) Iron deficiency anemia: Qualifiers: Iron deficiency anemia type: chronic blood loss Qualified Code(s): D50.0 - Iron deficiency anemia secondary to blood loss (chronic) Code(s): D50.9 - Iron deficiency anemia, unspecified Status: Acute Plan Recurrent falls Likely secondary to patient's vertigo CTA no acute findings 0% stenosis of the carotid Orthostatics pending UA negative PT OT/family requesting SNF Fall risk precautions EKG was sinus rhythm Vertigo Resume patient's meclizine changed from p.r.n. to scheduled PT OT with Vestibular therapy Fall precautions Diabetes Accu-Cheks a.c. HS sliding scale insulin resume patient's home long-acting Hemoglobin A1c goal less than 7 pending Diabetic diet Optimize Wally inhibitors and statins. Watch for hypoglycemia/hypoglycemic protocol ordered Anemia History of iron deficiency anemia Resume iron supplements Monitor H&H Transfuse if Hgb <7.0 HX HTN: Resumed home medications HX HLD: Resumed Statin HX neuropathy: Resume patient's Lyrica Code status: Full code per patient DVT prophylaxis: Lovenox Stress ulcer prophylaxis: Protonix 40 daily PT/OT notes: PT/OT recommending SNF Disposition: Patient was admitted to the medical unit due to recurrent falls at home has history of vertigo will resume meclizine and order PT OT plan is for discharge to SNF. Time Spent With Patient Time with patient: 15 - 25 minutes Subjective Date/time seen: 02/29/24 09:25 Interval history: Admission: Medical Record This is a 68-year-old male with past medical history significant for insulin-dependent diabetes mellitus, diabetic peripheral neuropathy, gait disturbance. patient presents to the emergency room due to recurrent falls he attributes it to his peripheral neuropathy he was using his walker when he fell.? Denies loss of consciousness, no chest pain, no palpitations, no dizziness, no focal weakness, no fevers no rigors no chills, no nausea no vomiting no diarrhea. 02/26: Patient up in chair states he feels a little bit better today. He reports worsening weakness for the few weeks is agreeable to Rehab. Orthostatic BP pending, resumed his meclizine and ordered vestibular therapy. 02/27: Patient pleasant in no acute distress however is impulsive. Patient's orthostatics were negative however states he is feeling better with vestibular therapy and meclizine. Currently just waiting on insurance authorization for correction facility. Labs unremarkable and vital stable. 02/28: Patient up in chair doing well with no complaints currently waiting on rehab placement, Labs unremarkable and vitals stable. Review of Systems Review of Systems: Recurrent falls, gait disturbance All systems reviewed & are unremarkable except as noted in HPI and below Exam Narrative: Physical Exam: GENERAL: Alert and oriented x 3. No acute distress. EYES: EOMI. No s
[2024-02-29 11:40] LABS: Glucose Point of Care 172 mg/dl (65-105)
[2024-02-29 14:00] VITALS: BP 133/76; PULSE 87; RESP 20; TEMP 36.7; O2SAT 98
[2024-02-29 16:07] LABS: Glucose Point of Care 153 mg/dl (65-105)
[2024-02-29 20:00] VITALS: PULSE 87; RESP 20; O2SAT 98
[2024-02-29 21:17] LABS: Glucose Point of Care 263 mg/dl (65-105)
[2024-02-29] MEDS: INSULIN GLARGINE (*BKC) 100 UNITS/ML 20 UNITS SUB-Q (21:20)
[2024-02-29 21:39] VITALS: BP 132/82; PULSE 78; RESP 18; TEMP 36.6; O2SAT 98
[2024-03-01 06:00] VITALS: BP 146/92; PULSE 78; RESP 20; TEMP 36.9; O2SAT 97
[2024-03-01 06:30] LABS: Hematocrit 43.8 % (42.0-52.0); Hemoglobin 14.4 g/dL (14.0-18.0); Mean Corpuscular HGB Conc 32.9 g/dl (32-36); Mean Corpuscular Hemoglobin 31.5 pg (26-34); Mean Corpuscular Volume 95.8 fl (80-100); Mean Platelet Volume 9.1 fl (7.4-10.4); Platelet Count Result 213 k/mm3 (150-375); Red Blood Count 4.57 M/mm3 (4.6-6.20); Red Cell Distribution Width 13.3 % (11.5-14.5); White Blood Count 6.9 K/mm3 (4.5-10.0)
[2024-03-01 06:45] LABS: Alanine Aminotransferase 24 U/L (6-50); Albumin Level 3.9 g/dL (3.5-5.1); Alkaline Phosphatase 75 U/L (38-126); Anion Gap 7 mmol/L (4-12); Aspartate Amino Transferase 25 U/L (17-59); Bilirubin,Total 0.5 mg/dL (0.2-1.3); Blood Urea Nitrogen 18 mg/dL (9-20); Calcium 8.9 mg/dL (8.4-10.2); Carbon Dioxide 25 mmol/L (22-30); Chloride 107 mmol/L (98-107); Estimated CRCL calculation 69 ml/min; Estimated Glomerular Filt Rate > 60; Glucose 130 mg/dL (65-110); Potassium 3.8 mmol/L (3.4-5.0); Sodium 139 mmol/L (137-145)
[2024-03-01 07:41] LABS: Glucose Point of Care 144 mg/dl (65-105)
[2024-03-01] MEDS: ATORVASTATIN 40 MG TABLET BY MOUTH (08:43)
[2024-03-01] MEDS: amLODIPine BESYLATE 5 MG TABLET PO (08:43)
[2024-03-01] MEDS: PRIMIDONE 50 MG TABLET 100 MG BY MOUTH ×2 (08:43→12:12)
[2024-03-01] MEDS: MECLIZINE HCL 25 MG TABLET PO (08:44)
[2024-03-01] MEDS: PREGABALIN (*CRX) 50 MG CAPSULE 100 MG PO (08:44)
[2024-03-01] MEDS: lisinopriL 20 MG TABLET PO (08:44)
[2024-03-01] MEDS: INSULIN GLARGINE (*BKC) 100 UNITS/ML 60 UNITS SUB-Q (08:44)
[2024-03-01] MEDS: ASPIRIN 81 MG ENTERIC TABLET PO (08:44)
[2024-03-01] MEDS: PANTOPRAZOLE 40 MG TABLET PO (08:44)
[2024-03-01] MEDS: EMPAGLIFLOZIN 25 MG TABLET BY MOUTH (08:44)
[2024-03-01] MEDS: INSULIN ASPART (*BKC) 100 UNITS/ML 7 UNITS SUB-Q ×2 (08:45→12:12)
--- NOTE | 2024-03-01 09:08 | PM.IMPN ---
Progress Note: A&P Assessment and Plan (1) Recurrent falls: Code(s): R29.6 - Repeated falls Status: Acute (2) Hypertensive heart disease with heart failure: Code(s): I11.0 - Hypertensive heart disease with heart failure Status: Acute (3) Diabetic neuropathy: Qualifiers: Diabetes mellitus complication detail: diabetic autonomic neuropathy Diabetes mellitus type: type 2 Qualified Code(s): E11.43 - Type 2 diabetes mellitus with diabetic autonomic (poly)neuropathy Code(s): E11.40 - Type 2 diabetes mellitus with diabetic neuropathy, unspecified Status: Acute (4) Neuropathy of both feet: Code(s): G57.93 - Unspecified mononeuropathy of bilateral lower limbs Status: Acute (5) T2DM (type 2 diabetes mellitus): Code(s): E11.9 - Type 2 diabetes mellitus without complications Status: Acute (6) Vertigo: Code(s): R42 - Dizziness and giddiness Status: Acute (7) Iron deficiency anemia: Qualifiers: Iron deficiency anemia type: chronic blood loss Qualified Code(s): D50.0 - Iron deficiency anemia secondary to blood loss (chronic) Code(s): D50.9 - Iron deficiency anemia, unspecified Status: Acute Plan Recurrent falls Likely secondary to patient's vertigo CTA no acute findings 0% stenosis of the carotid Orthostatics pending UA negative PT OT/family requesting SNF Fall risk precautions EKG was sinus rhythm Vertigo Resume patient's meclizine changed from p.r.n. to scheduled PT OT with Vestibular therapy Fall precautions Diabetes Accu-Cheks a.c. HS sliding scale insulin resume patient's home long-acting Hemoglobin A1c goal less than 7 pending Diabetic diet Optimize Wally inhibitors and statins. Watch for hypoglycemia/hypoglycemic protocol ordered Anemia History of iron deficiency anemia Resume iron supplements Monitor H&H Transfuse if Hgb <7.0 HX HTN: Resumed home medications HX HLD: Resumed Statin HX neuropathy: Resume patient's Lyrica Code status: Full code per patient DVT prophylaxis: Lovenox Stress ulcer prophylaxis: Protonix 40 daily PT/OT notes: PT/OT recommending SNF Disposition: Patient was admitted to the medical unit due to recurrent falls at home has history of vertigo will resume meclizine and order PT OT plan is for discharge to SNF. Subjective Date/time seen: 03/01/24 09:08 Interval history: Admission: Medical Record This is a 68-year-old male with past medical history significant for insulin-dependent diabetes mellitus, diabetic peripheral neuropathy, gait disturbance. patient presents to the emergency room due to recurrent falls he attributes it to his peripheral neuropathy he was using his walker when he fell.? Denies loss of consciousness, no chest pain, no palpitations, no dizziness, no focal weakness, no fevers no rigors no chills, no nausea no vomiting no diarrhea. 02/26: Patient up in chair states he feels a little bit better today. He reports worsening weakness for the few weeks is agreeable to Rehab. Orthostatic BP pending, resumed his meclizine and ordered vestibular therapy. 02/27: Patient pleasant in no acute distress however is impulsive. Patient's orthostatics were negative however states he is feeling better with vestibular therapy and meclizine. Currently just waiting on insurance authorization for custodial facility. Labs unremarkable and vital stable. 02/28: Patient up in chair doing well with no complaints currently waiting on rehab placement, Labs unremarkable and vitals stable. 03/01: Assumed care of patient. Doing well today. He is dressed in street clothes and asking to leave. I explained that we are waiting for insurance authorization before he can discharge to his facility. Review of Systems Review of Systems: All systems reviewed & are unremarkable except as noted in HPI and below Exa
[2024-03-01 11:23] LABS: Glucose Point of Care 113 mg/dl (65-105)
[2024-03-01 13:52] VITALS: BP 100/66; PULSE 74; RESP 18; TEMP 36.1; O2SAT 99
--- NOTE | 2024-03-02 16:35 | PM.DS ---
DS: Admitting Diagnosis Discharge Date 03/01/24 Admitting Diagnosis Fall DS: Discharge Diagnosis Discharge Diagnosis (1) Recurrent falls: Code(s): R29.6 - Repeated falls Status: Acute (2) Hypertensive heart disease with heart failure: Code(s): I11.0 - Hypertensive heart disease with heart failure Status: Acute (3) Diabetic neuropathy: Qualifiers: Diabetes mellitus type: type 2 Diabetes mellitus complication detail: diabetic autonomic neuropathy Qualified Code(s): E11.43 - Type 2 diabetes mellitus with diabetic autonomic (poly)neuropathy Code(s): E11.40 - Type 2 diabetes mellitus with diabetic neuropathy, unspecified Status: Acute (4) Neuropathy of both feet: Code(s): G57.93 - Unspecified mononeuropathy of bilateral lower limbs Status: Acute (5) T2DM (type 2 diabetes mellitus): Code(s): E11.9 - Type 2 diabetes mellitus without complications Status: Acute (6) Vertigo: Code(s): R42 - Dizziness and giddiness Status: Acute (7) Iron deficiency anemia: Qualifiers: Iron deficiency anemia type: chronic blood loss Qualified Code(s): D50.0 - Iron deficiency anemia secondary to blood loss (chronic) Code(s): D50.9 - Iron deficiency anemia, unspecified Status: Acute Plan Recurrent falls Likely secondary to patient's vertigo CTA no acute findings 0% stenosis of the carotid Orthostatics pending UA negative PT OT/family requesting SNF Fall risk precautions EKG was sinus rhythm Vertigo Resume patient's meclizine changed from p.r.n. to scheduled PT OT with Vestibular therapy Fall precautions Diabetes Accu-Cheks a.c. HS sliding scale insulin resume patient's home long-acting Hemoglobin A1c goal less than 7 pending Diabetic diet Optimize Wally inhibitors and statins. Watch for hypoglycemia/hypoglycemic protocol ordered Anemia History of iron deficiency anemia Resume iron supplements Monitor H&H Transfuse if Hgb <7.0 HX HTN: Resumed home medications HX HLD: Resumed Statin HX neuropathy: Resume patient's Lyrica Code status: Full code per patient DVT prophylaxis: Lovenox Stress ulcer prophylaxis: Protonix 40 daily PT/OT notes: PT/OT recommending SNF Disposition: Patient was admitted to the medical unit due to recurrent falls at home has history of vertigo will resume meclizine and order PT OT plan is for discharge to SNF. DS: Summary Hospital Course Reason for hospitalization: Fall Hospital Course: Patient presented with persistent falls thought to be related to vertigo and worsening peripheral neuropathy. He underwent stroke workup which was negative. PT and OT consulted and recommended SNF. Patient was waiting for transfer to SNF but he was declined due to history of felony. He discharged home in care of his girlfriend. Time Spent with Patient Time attestation: Total time spent providing and/or coordinating discharge services:66 Exam Narrative: General: well appearing, appears stated age. HEENT: normocephalic, atraumatic. Mucous membranes moist. EOMI, PERRLA, bilateral sclera anicteric, no conjunctival injection. Neck supple without JVD, lymphadenopathy, or bruit. Respiratory: clear to ascultation bilaterally. No rales/rhonic/wheezes. Cardiovascular: Regular rate and rhythm, normal S1-S2 upon ascultation. No murmurs, rubs, or clicks. PMI is nondisplaced, capillary refill less than 3 second. Abdomen: Soft, round, no pulsatile masses, nondistended and nontender. No rebound, no guarding. No CVA tenderness, no hepatosplenomegaly. Bowel sounds present to all four quadrants. No high pitch or tinkling sounds, resonant to percussion. Extremities: No cyanosis, clubbing, or edema present. Pulses are palpable 2/2. Active ROM to all four extremities. Neuro: Alert and orientated x 4. PERRLA. Cranial nerves 2-12 intact without focal deficit. Skin
== END 2024-03-01 16:15 | disposition home or self-care (01) ==
LOC: ANHED 17:23 → ANH3MEDSUR 17:54
PROVIDERS: Nurse Practitioner Family; Admitting Provider General Practice; Emergency Provider Preventive Medicine Aerospace Medicine; PCP Family Medicine; Visit Provider General Practice
DX: R42 Dizziness and giddiness (principal); E11.42 Type 2 diabetes mellitus with diabetic polyneuropathy; R29.6 Repeated falls; H55.00 Unspecified nystagmus; I11.0 Hypertensive heart disease with heart failure; I50.9 Heart failure, unspecified; D50.9 Iron deficiency anemia, unspecified; G62.9 Polyneuropathy, unspecified; Z95.5 Presence of coronary angioplasty implant and graft; F12.90 Cannabis use, unspecified, uncomplicated; Z79.82 Long term (current) use of aspirin; Z79.84 Long term (current) use of oral hypoglycemic drugs; Z79.890 Hormone replacement therapy; Z79.4 Long term (current) use of insulin
CPT/HCPCS: 36415; 70496; 70498; 71046; 80048; 80053; 81003; 82948; 85025; 85027; 93005; 97110; 97116; 97161; 97166; 97530; 97535; 99285; A9270; G0378; J1815; Q9967

== ENCOUNTER 2024-03-23 18:05 | Emergency (ER) | payer MEDICARE, SELFPAY ==
--- NOTE | ~2024-03-23 | CT_ITS ---
EXAMINATION: CT cervical spine wo con DATE: 03/23/2024 18:46 INDICATION: fall, hitr head TECHNIQUE: Computed tomography (CT) of the cervical spine was performed without intravenous contrast. Automated exposure control and iterative reconstruction technique were employed. The dose-length pro duct was 584.75 mGy-cm. COMPARISON: None. FINDINGS: Vertebral Body Alignment: Intact. Craniocervical and atlantoaxial alignment: Moderate degenerative change. Alignment intact. Osseous structures/fracture: No evidence of a lytic or blastic process in the visualized spine. No e vidence of acute fracture. Partial vertebral body fusion at C6-7. Cervical soft tissues: The paraspinal soft tissues planes are maintained. Degenerative changes: Degenerative changes, without severe neural foraminal or central canal narrowin g. IMPRESSION: No acute fracture or traumatic malalignment in the cervical spine. Reviewed, dictated and finalized at location K.
--- NOTE | ~2024-03-23 | XR_ITS ---
EXAMINATION: XR chest 1V Exam Date/Time: 03/23/2024 18:40 CDT HISTORY: fall Comparison: 02/26/2024. RESULT: Lines, tubes, and devices: Cholecystectomy clips. Lungs and pleura: Clear. Cardiomediastinal silhouette: Stable. Other: No acute osseous or upper abdominal finding. IMPRESSION: No acute cardiopulmonary process. Reviewed, dictated and finalized at location K.
--- NOTE | ~2024-03-23 | CT_ITS ---
EXAMINATION: CT brain wo con DATE: 03/23/2024 18:46 INDICATION: FALL . TECHNIQUE: Computed tomography (CT) of the head was performed without intravenous contrast. The mA wa s adjusted according to patient size. Iterative reconstruction technique was employed. The dose-lengt h product was 584.75 mGy-cm. COMPARISON: 02/25/2024. FINDINGS: No acute intracranial hemorrhage or extra-axial fluid collection. No hydrocephalus, mass, or herniation. No acute ischemic infarct. Unremarkable dural venous sinus attenuation. No acute osseous abnormality. Right frontal soft tissue swelling. Small retention cyst/polyps in the left posterior ethmoid and right maxillary sinuses, the remaining aerated spaces are clear. Moderate atrophy and mild chronic white matter change. Atherosclerotic intracranial calcification. IMPRESSION: No acute intracranial process. Reviewed, dictated and finalized at location K.
[2024-03-23 18:03] VITALS: BP 142/98; PULSE 77; RESP 15; TEMP 36.6; O2SAT 98
[2024-03-23 18:16] VITALS: BP 144/92; PULSE 77; RESP 16; O2SAT 99
--- NOTE | 2024-03-23 18:21 | ECG_ITS ---
Test Date: 2024-03-23 18:09:00 Measurements Intervals [place] Rate: 77 P: 28 [place]: 160 QRS: -6 QRSD: 92 T: 50 QT: 377 QTc: 428 Interpretive Statements SINUS RHYTHM POOR R-WAVE PROGRESSION INFERIOR MYOCARDIAL INFARCTION , OF INDETERMINATE AGE [40+ ms Q WAVE AND/OR ST/T ABNORMALITY IN II/aVF] No previous ECG available for comparison Electronically Signed On 03-24-2024 11:35:55 CDT by Hali Pineda M.D.
--- NOTE | 2024-03-23 18:25 | ED.FALL ---
HPI - Fall General Chief Complaint: Fall Stated Complaint: fall, head lac, confused Time Seen by Provider: 03/23/24 18:09 History of Present Illness HPI Narrative: 68-year-old male with history of type 2 diabetes, frequent falls, diabetic neuropathy, vertigo,hypertension presents to the emergency department with his girlfriend at bedside for a fall. Patient states he was walking to the bathroom without his cane which is what he normally uses ambulate. The girlfriend at bedside states the patient called out to her asking where his dizzy pills are and then she heard him fall. She called EMS and they transported the patient to the ED. He states he did hit his head is unsure if he lost consciousness. States the dizziness felt like his normal episodes of vertigo which normally resolve with his prescribed meclizine. States he is not currently feeling dizzy while in exam bed but does feel dizzy when he moves his head quickly. He denies chest pain, shortness of breath, abdominal pain, neck pain or back pain, extremity injury. Presents with a laceration to his right brow. Last Tdap unknown. He is not anticoagulated. The triage note states that the patient's girlfriend at bedside reported he seemed more confused than normal. On my evaluation the girlfriend denies this and states the patient seems to be at his baseline. Related Data Home Medications Medication Instructions Recorded Confirmed aspirin 81 mg tablet,delayed 81 mg PO DAILY 08/30/19 02/26/24 release multivitamin 1 cap PO DAILY 08/30/19 02/26/24 dapagliflozin propanediol 10 mg 10 mg PO QAM 03/20/23 02/27/24 tablet (Farxiga) ferrous sulfate 325 mg (65 mg 325 mg PO DAILY 07/11/23 02/27/24 iron) tablet lisinopril 20 mg tablet 20 mg PO DAILY 10/16/23 02/26/24 Allergies Allergy/AdvReac Type Severity Reaction Status Date / Time No Known Allergies Allergy Verified 01/12/24 17:35 Review of Systems Review of Systems: CONSTITUTIONAL: Denies fever, chills, or sweats. EYES: Denies visual changes, redness, or discharge. ENT: Denies rhinorrhea, congestion, sore throat, or otalgia. CARDIOVASCULAR: Denies chest pain, palpitations, or edema. RESPIRATORY: Denies cough or dyspnea. GASTROINTESTINAL: Denies abdominal pain, nausea, vomiting, or diarrhea. GENITOURINARY: Denies dysuria or hematuria. SKIN: see HPI MUSCULOSKELETAL: Denies back pain, joint pain, or myalgia. NEUROLOGIC: Denies headache, numbness, or weakness. PSYCHIATRIC: Denies anxiety or depression. [facility] Past Medical History Medical History Abnormal electroretinogram [ERG] Abnormal results of thyroid function studies Adult BMI 33.0-33.9 kg/sq m Ataxia BMI 34.0-34.9,adult BMI 36.0-36.9,adult BMI 37.0-37.9, adult BMI over 35 Body mass index [BMI] 37.0-37.9, adult Candidiasis of skin Decreased independence with activities of daily living History of SCC (squamous cell carcinoma) of skin Hypertensive heart disease with heart failure Iron deficiency anemia Loss of balance Microalbuminuria Neuropathy Overweight Recurrent falls Surgical History Surgical History H/O right knee surgery Hx of heart artery stent Family History Family History Father Diabetes mellitus Mother Diabetes mellitus Family history of Alzheimer's disease Sibling Multiple sclerosis Diabetes mellitus Social History Social History Smoking status: Never smoker Second hand tobacco smoke exposure: No Alcohol intake: never Drinks per week: 6 Substance use: never Substance use type: does not use Do You Feel Safe in your Home?: Yes Lack of Transportation: No Lack of Food: Never True Current Housing: I Have Housing Concerned About Future Housing: No
[2024-03-23 19:08] LABS: Basophils Percent Auto 0.4 % (0.2-1.2); Eosinophils Absolute Auto 0.1 K/mm3 (0-0.3); Eosinophils Percent Auto 1.6 % (0-4.4); Hematocrit 40.8 % (42.0-52.0); Hemoglobin 14.2 g/dL (14.0-18.0); Immature Granulocyte Absolute 0.03 K/mm3 (0.00-0.031); Immature Granulocyte Percent A 0.4 % (0-0.5); Lymphocytes Absolute Auto 1.05 K/mm3 (0.9-3.2); Mean Corpuscular HGB Conc 34.8 g/dl (32-36); Mean Corpuscular Hemoglobin 32.9 pg (26-34); Mean Corpuscular Volume 94.7 fl (80-100); Mean Platelet Volume 9.1 fl (7.4-10.4); Monocytes Absolute Auto 0.5 K/mm3 (0.1-0.6); Monocytes Percent Auto 6.7 % (2.6-8.5); Neutrophils Absolute Auto 5.8 K/mm3 (1.3-6.7); Neutrophils Percent Auto 76.9 % (45.5-73.1); Platelet Count Result 175 k/mm3 (150-375); Red Blood Count 4.31 M/mm3 (4.6-6.20); Red Cell Distribution Width 13.2 % (11.5-14.5); White Blood Count 7.5 K/mm3 (4.5-10.0)
[2024-03-23] MEDS: TETANUS,DIPHTHERIA,AC PERTUSSIS ADULT (0.5 ML) BOOSTRIX IM (19:08)
[2024-03-23 19:09] VITALS: BP 128/87; PULSE 70; RESP 18; O2SAT 97
--- NOTE | 2024-03-23 19:18 | PC.NURSE ---
Assumed care of pt from ammy campos and ammy ortega at this time. pt resting comfortably in bed. lac tray and sutures at bedside.
[2024-03-23 19:20] LABS: Alanine Aminotransferase 24 U/L (6-50); Albumin Level 3.5 g/dL (3.5-5.1); Alkaline Phosphatase 71 U/L (38-126); Anion Gap 6 mmol/L (4-12); Aspartate Amino Transferase 29 U/L (17-59); Bilirubin,Total 0.4 mg/dL (0.2-1.3); Blood Urea Nitrogen 16 mg/dL (9-20); Calcium 8.8 mg/dL (8.4-10.2); Carbon Dioxide 27 mmol/L (22-30); Chloride 103 mmol/L (98-107); Estimated CRCL calculation 69 ml/min; Estimated Glomerular Filt Rate > 60; Glucose 145 mg/dL (65-110); Potassium 3.9 mmol/L (3.4-5.0); Sodium 136 mmol/L (137-145)
[2024-03-23 19:48] LABS: Troponin I < 0.012 ng/mL (0.000-0.034)
[2024-03-23] MEDS: MECLIZINE HCL 25 MG TABLET PO (20:00)
[2024-03-23 20:08] LABS: Glucose Point of Care 154 mg/dl (65-105)
[2024-03-23 20:46] VITALS: BP 136/99; PULSE 70; RESP 12; O2SAT 98
[2024-03-23 21:06] LABS: Appearance Urine Clear (Clear); Bacteria Urine None Seen /hpf; Bilirubin Urine Negative (Negative); Blood Urine Negative (Negative); Color Urine Yellow (Yellow); Glucose Urine UA Negative (Negative); Ketones Urine Negative (Negative); Leukocyte Esterase Ur Negative LEU/UL (Negative); Nitrate Urine Negative (Negative); Non Pathogenic Casts 0-2; Protein Urine Trace mg/dL (Negative); RBC Urine 0-2 /hpf (0-2); Specific Grav Ur 1.012 (1.001-1.035); Squamous Epithelial Cell Urine None Seen /hpf (Few); Urobilinogen Urine 0.2 mg/dL (<2.0); WBC Urine 0-5 /hpf (0-3)
[2024-03-23 21:08] LABS: Add Urine Microscopic? YES
[2024-03-23 21:16] VITALS: BP 139/87; PULSE 70; RESP 18; O2SAT 97
== END 2024-03-23 21:46 | disposition home or self-care (01) ==
PROVIDERS: Emergency Provider Physician Assistant; PCP Family Medicine
DX: S01.111A Laceration without foreign body of right eyelid and periocular area, initial encounter (principal); R42 Dizziness and giddiness; R26.81 Unsteadiness on feet; Z23 Encounter for immunization; R29.6 Repeated falls; E11.40 Type 2 diabetes mellitus with diabetic neuropathy, unspecified; I11.0 Hypertensive heart disease with heart failure; I50.9 Heart failure, unspecified; D50.9 Iron deficiency anemia, unspecified; E66.3 Overweight; Z68.31 Body mass index [BMI] 31.0-31.9, adult; Z95.5 Presence of coronary angioplasty implant and graft; Z85.828 Personal history of other malignant neoplasm of skin; Z79.82 Long term (current) use of aspirin; Z79.899 Other long term (current) drug therapy; Z79.4 Long term (current) use of insulin; Z79.84 Long term (current) use of oral hypoglycemic drugs; R94.31 Abnormal electrocardiogram [ECG] [EKG]; W18.39XA Other fall on same level, initial encounter
CPT/HCPCS: 12011; 36415; 70450; 71045; 72125; 80053; 81001; 82948; 84484; 85025; 90471; 90715; 93005; 99284; A9270

== ENCOUNTER 2024-03-26 12:30 | Outpatient (RCR) | payer MEDICARE, SELFPAY ==
--- NOTE | 2024-03-03 09:55 | OPREHPOC ---
Outpatient Therapy Plan of Care This is a Multidisciplinary Plan of Care that may contain components documented by all disciplines (PT, OT, and ST.) PT Problem 1 PT Problem #1 Knowledge Deficit PT Goal 1 Goal *indep with HEP Target Visit 10 PT Problem 2 PT Problem #2 Impaired Strength PT Goal 1 Goal increase strength of R and L LE to improve mobility: 1* sit/stand with use of 1 UE and on first trial 2* perform 20 reps of supine strengthening exercises R and L Target Visit 10 PT Problem 3 PT Problem #3 Impaired Functional Mobility PT Goal 1 Goal 1* Tinetti balance/gait score of 19/28 2* 2 minute walking test distance of 125' with assistive device 3* 5 reps sit/stand time of 18 seconds with bilateral UE use 4* pt report NO falls Target Visit 10
--- NOTE | 2024-03-03 09:55 | PTOPEVAL1 ---
Assessment and note entered by Dianne Luna, PT Evaluation Information Assessment Status Evaluation Diagnosis repeated falls, gait and mobility abnormalities Onset January 2024 Subjective Information gradual increase in weakness with falls; in the past 2 months have had 10 falls, occur with walking; have to call EMT to get up off the floor use cane for walking; have wheeled walker, but states it makes him fall- -change in [place] at home from tile to carpet tipped him forward; was hospitalized due to falls, d/c March 03 to home; live with significant other; had recent PT, d/c ~ October Activity: limited out of home activity--out to eat; use cane; indep with bathing and dressing; one entry step--doing OK with it; Reported Pain Level Pain Score 0: Self Report Additional Pain Score Comments sometimes have a little tweek of pain in back, but not bad Assessment PT Clinical Summary Paul has the diagnosis of falls and decreased mobility. He uses a cane for mobility. Significant other does the home tasks. He is indep with bathing, dressing and self care. Recent hospitalization due to falls and was not able to get into in-patient rehab. With the evaluation: he has weakness in R and L LE; decrease transfer skill- requires both UE with sit/stand transfer; 2 minute walking test distance of 55'; poor gait pattern with cane and 5 reps sit/stand of 25 seconds; Tinetti balance/ gait score of 12/28= high risk for falls. Skilled PT services are indicated to increase LE strength, gait and balance skills, to improve mobility and decrease risk for falls. Education for HEP and assistive device training--he would benefit from using the wheeled walker. Plan of Care Interventions Gait Training,Neuro Re-education,Patient/Caregiver Education,Therapeutic Activities,Therapeutic Exercise,Self-Care/Home Management PT Services Indicated Yes
--- NOTE | 2024-03-11 12:01 | OTOPEVDC ---
Assessment and note entered by Mane Silveira, ARELIS/Sunil, CHT Evaluation Information Diagnosis Disorder of the autonomic nervous system, repeated falls Subjective Information Patient presents with this , Meg. They report he has been trouble with his mobility and has been sustaining falls. He comes into the clinic today using a cane. States, walkers make me fall . He reports being able to complete ADLs with increased time. Reported Pain Level Pain Score 0: Self Report Assessment OT Clinical Summary Patient referred to OT with dx of disorder of ANS, repeated falls, and abnormalities of gait and mobility. He presents with intact upper body strength, with the exception of chronic right shoulder weakness. He was instructed in HEP for this. He has all appropriate AE and DME for ADLs. He is current with PT at this clinic for his mobility and standing balance deficits. No further skilled OT indicated at this time. Plan of Care OT Services Indicated No
--- NOTE | 2024-03-11 12:48 | PCPTNOTE ---
Pt was here for OT first, went to lunch and did not return for PT. AKS
--- NOTE | 2024-03-24 13:51 | PCPTNOTE ---
Pt canceled due to fall yesterday and stitches in his head.
--- NOTE | 2024-03-29 14:00 | PCPTNOTE ---
Pt states he fell again today and was not able to make it.
--- NOTE | 2024-03-31 13:38 | PCPTNOTE ---
Pt no showed visit again today possibly due to recent fall.
--- NOTE | 2024-04-02 16:23 | PCPTNOTE ---
pt did not show for today's reevaluation appt. Called his phone, unable to leave voice message.
--- NOTE | 2024-04-06 13:27 | PCPTNOTE ---
called pt significant other, Meg [phone]; left message for her to check on Paul since continuing to have mobility issues and falls. And to discuss home health care therapy for him, instead of coming to out pt.
--- NOTE | 2024-04-09 15:14 | PTOPDC ---
Assessment and note entered by Dianne Luna, PT Discharge Report Assessment Status Discharge - Pt Not Present Diagnosis repeated falls, gait and mobility abnormalities Onset January 2024 Subjective Information pt was not seen this date. Assessment PT Clinical Summary Paul has received 5 PT sessions. He did not show for 4 appointments and call/cancel 1 appointment. He is now hospitalized due to falls and decline in mobility. Discharge PT. Goals were not addressed. Plan of Care PT Services Indicated No
== END 2024-04-12 11:10 | disposition home or self-care (01) ==
LOC: ANHPT 12:30
PROVIDERS: PCP Family Medicine; Visit Provider Family Medicine
DX: R26.9 Unspecified abnormalities of gait and mobility (principal); R26.89 Other abnormalities of gait and mobility; R29.6 Repeated falls
CPT/HCPCS: 97110; 97161; 97165; 97530

== ENCOUNTER 2024-03-30 10:48 | Emergency (ER) | payer MEDICARE, SELFPAY ==
--- NOTE | ~2024-03-30 | CT_ITS ---
EXAMINATION: CT thoracic lumbar wo con DATE: 03/30/2024 11:27 INDICATION: Back injury. Back pain. TECHNIQUE: Computed tomography (CT) of the thoracic and lumbar spine was performed without intravenou s contrast. Automated exposure control and iterative reconstruction technique were employed. The dose -length product was 2075.65 mGy-cm. COMPARISON: None FINDINGS: CT THORACIC SPINE: There is 4 degrees levocurvature of thoracolumbar spine. There is mild chronic ant erior wedging of 11 and T12 vertebral bodies. Intervertebral disc heights are normal in thoracic spin e. There are bridging endplate osteophytes at multiple levels including from T3-T4 through T7-T8, con sistent with diffuse idiopathic skeletal hyperostosis (DISH). There is multilevel mild to moderate fa cet joint osteoarthritis. There is mild neural foraminal stenosis on the right at T2-T3 and on the le ft at T5-T6. No central canal stenosis. There is cortical thinning in the kidneys. There is a 4.1 cm cyst in right kidney. CT LUMBAR SPINE: Bone alignment is normal. There is mild chronic anterior wedging of L1 vertebral bod y. There is mildly decreased disc height at L3-L4 and L4-L5. The following disc levels are specifical ly discussed: L1-L2: The disc does not extend beyond the endplate margin. There is mild bilateral facet joint osteo arthritis. There is no neural foraminal stenosis. There is no central canal stenosis. L2-L3: The disc is bulging. There is mild bilateral facet joint osteoarthritis. There is mild bilater al neural foraminal stenosis. There is mild central canal stenosis. L3-L4: The disc is bulging. There is mild bilateral facet joint osteoarthritis. There is mild bilater al neural foraminal stenosis. There is mild central canal stenosis. L4-L5: The disc is bulging. There is severe bilateral facet joint osteoarthritis. There is moderate b ilateral neural foraminal stenosis. There is mild central canal stenosis. L5-S1: The disc is bulging. There is moderate bilateral facet joint osteoarthritis. There is mild bhaskar ateral neural foraminal stenosis. There is mild central canal stenosis. IMPRESSION: 1. No fracture. 2. Mild thoracic spondylosis and moderate lumbar spondylosis. 3. DISH. Reviewed, dictated and finalized at location E.
--- NOTE | ~2024-03-30 | CT_ITS ---
EXAMINATION: 1. CT facial & cervical spine wo DATE: 03/30/2024 11:27 INDICATION: Recent falls with right periorbital ecchymoses. TECHNIQUE: 1. Computed tomography (CT) of the maxillofacial region and of the cervical spine were performed with out intravenous contrast. Sagittal and coronal reconstructions of both regions were obtained. Automat ed exposure control and iterative reconstruction technique were employed. The dose-length product was 626.47 mGy-cm. COMPARISON: 03/23/2024 FINDINGS: Maxillofacial CT: Small subcutaneous hematoma along the right supraorbital rim. Orbits are normal with intact appearing globes and no post septal inflammatory stranding. No maxillofacial fractures. Specifically the kierra ble, zygomatic arches, nasal bones and koch of the orbits and paranasal sinuses are all intact. Unch anged mild rightward bowing of the nasal septum with right-sided nasal spike which parallels the cont ours of the turbinates. Mild mucoperiosteal thickening at the bilateral ethmoid sinuses. Dental disea se with multiple dental restorations. Large periportal lucency surrounding the roots of the posterior most remaining left mandibular molar with fracture of a couple of the posterior roots of the tooth w hich is now angulated posteriorly. Cervical spine CT: 1 cervicothoracic levocurvature. Sagittal alignment is normal. Vertebral body heights are normal. No fracture. Severe disc height loss with degenerative endplate changes at C6-C7. Moderate disc height l oss at C5-C6 and mild disc height loss at the more cephalad cervical levels. There are posterior disc osteophyte complexes resulting in mild central canal stenosis at C4-C5 through C6-C7. There is also moderate to severe uncovertebral osteoarthritis at these levels along with multilevel mild cervical f acet osteoarthritis contributes to moderate neural from stenosis on the left at C5-C6 and mild neural foraminal stenosis on the right at C5-C6 and bilaterally at C4-C5 and C6-C7. Cervical soft tissues a re unremarkable. Visualized upper lungs are clear. IMPRESSION: 1. Mild right periorbital soft tissue swelling. No maxillofacial fractures. 2. Severe lower cervical predominant spondylosis with no acute osseous or mild. 3. Dental disease with periapical lucencies and fractures of 2 of the roots of the posterior most lef t mandibular molar which is likely loosening and angled posteriorly. Consider dental referral. Reviewed, dictated and finalized at location A. IMPRESSION: 1. Mild right periorbital soft tissue swelling. No maxillofacial fractures. 2. Severe lower cervical predominant spondylosis with no acute osseous or mild. 3. Dental disease with periapical lucencies and fractures of 2 of the roots of the posterior most left mandibular molar which is likely loosening and angled p osteriorly. Consider dental referral.
--- NOTE | ~2024-03-30 | CT_ITS ---
EXAMINATION: CT brain wo con DATE: 03/30/2024 11:26 INDICATION: Gait instability presenting post recurrent or recent falls with ecchymoses about the righ t eye TECHNIQUE: Computed tomography (CT) of the head was performed without intravenous contrast. Sagittal and coronal reconstructions were performed. The mA was adjusted according to patient size. Iterative reconstruction technique was employed. The dose-length product was 681.00 mGy-cm. COMPARISON: head CT dated 03/23/2024 FINDINGS: Unchanged small subcutaneous hematoma along the right supraorbital rim. No fracture. No acute intracr anial hemorrhage, acute infarction or abnormal extra axial fluid collection. There is mild scattered white matter hypoattenuation consistent with chronic small vessel ischemic disease. Symmetric promine nce of the sulci and ventricles consistent with moderate age-appropriate diffuse cerebral volume loss . No mass/mass effect. Mild mucosal thickening bilateral ethmoid sinuses. The orbits and mastoid air cells are normal. IMPRESSION: 1. No fracture or acute intracranial process. 2. Age-related changes including moderate diffuse volume loss and mild scattered white matter hypoatt enuation consistent with chronic small vessel ischemic disease. Reviewed, dictated and finalized at location A. IMPRESSION: 1. No fracture or acute intracranial process. 2. Age-related changes including moderate diffuse volume loss and mild scattere d white matter hypoattenuation consistent with chronic small vessel ischemic di sease.
[2024-03-30 10:48] VITALS: BP 142/97; PULSE 84; RESP 18; TEMP 37; O2SAT 98
--- NOTE | 2024-03-30 11:13 | ED.BACK ---
HPI - Back Pain/Injury General Chief Complaint: Back Pain/Injury Stated Complaint: GLF back pain History of Present Illness HPI Narrative: 68-year-old male presenting to the emergency department for evaluation after having a mechanical fall in a parking lot yesterday. Patient states he does have some gait instability issues at baseline and is post use a walker or a cane. Patient states he was using a cane yesterday while walking in the parking lot and fell over 1 of the concrete curbs. Patient states he did injure his mid back. Patient has ecchymosis on his right eye which is from a prior fall. Related Data Home Medications Medication Instructions Recorded Confirmed aspirin 81 mg tablet,delayed 81 mg PO DAILY 08/30/19 02/26/24 release multivitamin 1 cap PO DAILY 08/30/19 02/26/24 dapagliflozin propanediol 10 mg 10 mg PO QAM 03/20/23 02/27/24 tablet (Farxiga) ferrous sulfate 325 mg (65 mg 325 mg PO DAILY 07/11/23 02/27/24 iron) tablet lisinopril 20 mg tablet 20 mg PO DAILY 10/16/23 02/26/24 Allergies Allergy/AdvReac Type Severity Reaction Status Date / Time No Known Allergies Allergy Verified 01/12/24 17:35 Review of Systems Review of Systems: All systems reviewed & are unremarkable except as noted in HPI and below PMFSH Past Medical History Medical History Abnormal electroretinogram [ERG] Abnormal results of thyroid function studies Adult BMI 33.0-33.9 kg/sq m Ataxia BMI 34.0-34.9,adult BMI 36.0-36.9,adult BMI 37.0-37.9, adult BMI over 35 Body mass index [BMI] 37.0-37.9, adult Candidiasis of skin Decreased independence with activities of daily living History of SCC (squamous cell carcinoma) of skin Hypertensive heart disease with heart failure Iron deficiency anemia Loss of balance Microalbuminuria Neuropathy Overweight Recurrent falls Surgical History Surgical History H/O right knee surgery Hx of heart artery stent Family History Family History Father Diabetes mellitus Mother Diabetes mellitus Family history of Alzheimer's disease Sibling Multiple sclerosis Diabetes mellitus Social History Social History Smoking status: Never smoker Second hand tobacco smoke exposure: No Alcohol intake: never Drinks per week: 6 Substance use: never Substance use type: does not use Do You Feel Safe in your Home?: Yes Lack of Transportation: No Lack of Food: Never True Current Housing: I Have Housing Concerned About Future Housing: No Difficulty Paying Gas/Electric Bills: No Difficulty Paying for Meds: No Currently Unemployed: No Education: High School Diploma/GED Difficulty w/ Childcare or Family Care: No Living arrangements: with family 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 by the patient): Male Spiritual care concerns: No Exam Narrative: APPEARANCE: Well appearing, no pain, no distress, well-nourished. HEAD: normocephalic, atraumatic. EYES: PERRLA/EOMI, conjunctivae clear. NOSE: Normal no drainage EARS:TMS clear with good light reflex. THROAT: Pharynx clear, no exudate. NECK: Supple. No adenopathy, no masses. RESPIRATORY: Airway patent, respirations nonlabored. Clear to auscultation bilaterally, no rales, rhonchi, wheezing. CARDIOVASCULAR: Regular rate and rhythm without murmurs rubs or gallops. ABDOMINAL: Soft, nontender, nondistended, normal bowel sounds MUSCULOSKELETAL: Moves all extremities. Strength/ROM intact, No edema, No calf tenderness. NEURO: Alert. Cranial nerves II through XII intact. Grossly intact SKIN: Warm, dry. Normal Color Course Vital Signs Vital signs: Vital Signs Temperature 98.
[2024-03-30] MEDS: HYDROcodone/acetaminophen (*CRX) 5-325 MG TABLET 1 TAB PO (11:30)
[2024-03-30 12:30] VITALS: BP 133/90; PULSE 86; RESP 16; O2SAT 98
== END 2024-03-30 13:17 | disposition home or self-care (01) ==
PROVIDERS: Emergency Provider Emergency Medicine; PCP Family Medicine
DX: S29.9XXA Unspecified injury of thorax, initial encounter (principal); S00.11XA Contusion of right eyelid and periocular area, initial encounter; R26.89 Other abnormalities of gait and mobility; I11.0 Hypertensive heart disease with heart failure; I50.9 Heart failure, unspecified; D50.9 Iron deficiency anemia, unspecified; G62.9 Polyneuropathy, unspecified; E66.3 Overweight; Z68.32 Body mass index [BMI] 32.0-32.9, adult; Z85.828 Personal history of other malignant neoplasm of skin; Z95.5 Presence of coronary angioplasty implant and graft; M47.812 Spondylosis without myelopathy or radiculopathy, cervical region; K04.90 Unspecified diseases of pulp and periapical tissues; W18.09XA Striking against other object with subsequent fall, initial encounter; W19.XXXA Unspecified fall, initial encounter
CPT/HCPCS: 70450; 70486; 72125; 72128; 72131; 99284; A9270

== ENCOUNTER 2024-04-04 00:34 | Emergency (ER) | payer MEDICARE, SELFPAY ==
--- NOTE | ~2024-04-04 | CT_ITS ---
EXAMINATION: CT cervical spine wo con DATE: 04/04/2024 02:52 INDICATION: Neck pain post fall TECHNIQUE: Computed tomography (CT) of the cervical spine was performed without intravenous contrast. Automated exposure control and iterative reconstruction technique were employed. The dose-length pro duct was 506.55 mGy-cm. COMPARISON: None FINDINGS: Mild cervicothoracic levocurvature. Sagittal alignment is normal. Vertebral body heights are normal. No fracture. Severe disc height loss with degenerative endplate changes at C6-C7 and developing fusio n across the bilateral uncovertebral joints. Moderate disc height loss at C5-C6 and mild disc height loss at the more cephalad cervical levels. There are posterior disc osteophyte complexes resulting i n mild central canal stenosis at C4-C5 through C6-C7. There is also moderate to severe uncovertebral osteoarthritis at these levels along with multilevel mild cervical facet osteoarthritis which contrib utes to moderate neural foraminal stenosis on the left at C5-C6 and mild neural foraminal stenosis on the right at C5-C6 and bilaterally at C4-C5 and C6-C7. Cervical soft tissues are unremarkable. Visua lized upper lungs are clear. IMPRESSION: 1. Severe lower cervical spondylosis. No acute osseous abnormality. Reviewed, dictated and finalized at location A.
--- NOTE | ~2024-04-04 | CT_ITS ---
EXAMINATION: CT brain wo con DATE: 04/04/2024 02:47 INDICATION: Frequent falls with head injury and neck pain TECHNIQUE: Computed tomography (CT) of the head was performed without intravenous contrast. Sagittal and coronal reconstructions were performed. The mA was adjusted according to patient size. Iterative reconstruction technique was employed. The dose-length product was 605.33 mGy-cm. COMPARISON: head CT dated 03/30/2024 FINDINGS: No fracture. No acute intracranial hemorrhage, acute infarction or abnormal extra axial fluid collect ion. Small old lacunar infarcts at the bilateral basal ganglia. There is mild scattered white matter hypoattenuation consistent with chronic small vessel ischemic disease. Symmetric prominence of the ve ntricles disproportionately increased prominence of the sulci which could be related to moderate cent ral predominant atrophy although differential includes normal pressure hydrocephalus. No mass/mass ef fect. The orbits, paranasal sinuses and mastoid air cells are normal. IMPRESSION: 1. No fracture or acute intracranial process. 2. Small old lacunar infarcts at the bilateral basal ganglia. 3. Symmetric enlargement of the ventricles disproportionate to the increased prominence of the sulci which could be related to moderate central predominant atrophy versus normal pressure hydrocephalus. Correlate for clinical triad of ataxia/gait disturbance, dementia and urinary incontinence. Reviewed, dictated and finalized at location A. IMPRESSION: 1. No fracture or acute intracranial process. 2. Small old lacunar infarcts at the bilateral basal ganglia. 3. Symmetric enlargement of the ventricles disproportionate to the increased pr ominence of the sulci which could be related to moderate central predominant at rophy versus normal pressure hydrocephalus. Correlate for clinical triad of channing imer/gait disturbance, dementia and urinary incontinence.
--- NOTE | ~2024-04-04 | CT_ITS ---
EXAMINATION: CT chest abdomen pelvis w con DATE: 04/04/2024 02:55 INDICATION: Trauma TECHNIQUE: Computed tomography (CT) of the chest, abdomen, and pelvis was performed with 100 mL Omnip aque-350 intravenous contrast. Automated exposure control and iterative reconstruction technique were employed. The dose-length product was 1551.11 mGy-cm. COMPARISON: None FINDINGS: CHEST CT: Mild dependent atelectasis in the bilateral lower lobes. No pneumonia, pulmonary edema, pleural effus ion or pneumothorax. Heart size is normal. Atherosclerotic coronary artery calcification. No pericard ial effusion. Thoracic aorta is normal in caliber with no dissection. Calcified right bronchial lymph nodes consistent with old granulomatous disease. No pathologically enlarged thoracic lymphadenopathy . Mild thoracic spondylosis with bridging osteophytes at multiple levels consistent with diffuse idio pathic skeletal hyperostosis (DISH). ABDOMEN/PELVIS CT: Cholecystectomy clips the gallbladder fossa. Liver, spleen, pancreas and bilateral adrenal glands are normal. Cortical scarring at both kidneys. A few right renal cysts the largest a 4.6 cm parapelvic c yst. There is prominent colonic diverticulosis with a descending and sigmoid colon predominance but w ithout adjacent inflammatory change to suggest diverticulitis. Small bowel and appendix are normal. S mall fat-containing umbilical and bilateral inguinal hernias.Bladder is normal. Prostatomegaly. No fr ee intraperitoneal gas or fluid. No pathologically enlarged abdominal or pelvic lymphadenopathy. [employer] mild anterior wedging at T11-L1. Moderate left sacral iliac osteoarthritis and mild to moderate o steoarthritis at the right sacroiliac and bilateral hip joints. IMPRESSION: 1. No acute osseous abnormality or acute vascular or visceral organ injury in the chest, abdomen or p atif. 2. Diverticulosis. 3. Small fat-containing umbilical and bilateral inguinal hernias. Reviewed, dictated and finalized at location A. IMPRESSION: 1. No acute osseous abnormality or acute vascular or visceral organ injury in t he chest, abdomen or pelvis. 2. Diverticulosis. 3. Small fat-containing umbilical and bilateral inguinal hernias.
[2024-04-04 00:37] VITALS: PULSE 82; RESP 12; TEMP 36.7; O2SAT 99
--- NOTE | 2024-04-04 01:36 | ECG_ITS ---
Test Date: 2024-04-04 01:55:18 Measurements Intervals [place] Rate: 78 P: 24 RI: 155 QRS: 1 QRSD: 80 T: 60 QT: 366 QTc: 419 Interpretive Statements SINUS RHYTHM POOR R-WAVE PROGRESSION PREVIOUS INFERIOR WALL AND INFARCTION ABNORMAL ECG Compared to ECG 03/23/2024 18:09:00 NO APPARENT DIFFERENCE Electronically Signed On 04-04-2024 08:47:01 CDT by Kai Desouza M.D.
[2024-04-04 01:59] LABS: Basophils Percent Auto 0.3 % (0.2-1.2); Eosinophils Absolute Auto 0.1 K/mm3 (0-0.3); Eosinophils Percent Auto 1.7 % (0-4.4); Hematocrit 44.1 % (42.0-52.0); Immature Granulocyte Absolute 0.03 K/mm3 (0.00-0.031); Immature Granulocyte Percent A 0.4 % (0-0.5); Lymphocytes Absolute Auto 1.38 K/mm3 (0.9-3.2); Lymphocytes Percent Auto 19.1 % (18.3-44.2); Mean Platelet Volume 9.7 fl (7.4-10.4); Monocytes Absolute Auto 0.6 K/mm3 (0.1-0.6); Monocytes Percent Auto 8.7 % (2.6-8.5); Neutrophils Absolute Auto 5.1 K/mm3 (1.3-6.7); Neutrophils Percent Auto 69.8 % (45.5-73.1); Platelet Count Result 216 k/mm3 (150-375); Red Blood Count 4.69 M/mm3 (4.6-6.20); Red Cell Distribution Width 12.6 % (11.5-14.5); White Blood Count 7.2 K/mm3 (4.5-10.0)
[2024-04-04 02:10] LABS: Alanine Aminotransferase 20 U/L (6-50); Albumin Level 4.2 g/dL (3.5-5.1); Alkaline Phosphatase 107 U/L (38-126); Anion Gap 10 mmol/L (4-12); Aspartate Amino Transferase 23 U/L (17-59); Bilirubin,Total 0.7 mg/dL (0.2-1.3); Blood Urea Nitrogen 24 mg/dL (9-20); Calcium 9.3 mg/dL (8.4-10.2); Carbon Dioxide 27 mmol/L (22-30); Chloride 100 mmol/L (98-107); Estimated CRCL calculation 77 ml/min; Estimated Glomerular Filt Rate > 60; Glucose 436 mg/dL (65-110); Magnesium 2.1 mg/dL (1.6-2.3); Potassium 4.1 mmol/L (3.4-5.0); Prothrombin Time 13.7 Seconds (11.1-14.7); Sodium 137 mmol/L (137-145)
[2024-04-04 02:11] LABS: Partial Thromboplastin Time 33.2 Seconds (22.3-36.8)
[2024-04-04 02:12] LABS: Lactic Acid Reflex 1.1 mmol/L (0.7-2.0)
[2024-04-04 02:21] LABS: Troponin I < 0.012 ng/mL (0.000-0.034)
[2024-04-04 02:27] LABS: Procalcitonin 0.1 ng/mL
--- NOTE | 2024-04-04 02:38 | PC.NURSE ---
Pt to CT at this time.
[2024-04-04 03:08] LABS: Appearance Urine Clear (Clear); Bacteria Urine None Seen /hpf; Bilirubin Urine Negative (Negative); Blood Urine Negative (Negative); Color Urine Yellow (Yellow); Glucose Urine UA 3+ mg/dL (Negative); Ketones Urine Negative (Negative); Leukocyte Esterase Ur Negative LEU/UL (Negative); Nitrate Urine Negative (Negative); Non Pathogenic Casts 0-2; Protein Urine Trace mg/dL (Negative); RBC Urine 0-2 /hpf (0-2); Squamous Epithelial Cell Urine None Seen /hpf (Few); WBC Urine 0-5 /hpf (0-3)
[2024-04-04 03:28] LABS: Add Urine Microscopic? YES
[2024-04-04] MEDS: MORPHINE SULFATE (*CRX) 4 MG/ML INJ 2 MG IV PUSH (04:37)
--- NOTE | 2024-04-04 05:50 | ED.GENADULT ---
HPI - General Adult General Chief complaint: Fall Stated complaint: falls Time Seen by Provider: 04/04/24 01:28 History of Present Illness HPI narrative: Patient is a 68-year-old gentleman who presents emergency department with chief complaint of multiple falls. The patient was recently in the emergency department after falls were he had a laceration of the patient had several falls today EMS was called and finally was transported to the emergency department. The patient states that he is feeling fine and does not want to be in the hospital. Related Data Home Medications Medication Instructions Recorded Confirmed aspirin 81 mg tablet,delayed 81 mg PO DAILY 08/30/19 04/01/24 release multivitamin 1 cap PO DAILY 08/30/19 04/01/24 dapagliflozin propanediol 10 mg 10 mg PO QAM 03/20/23 04/01/24 tablet (Farxiga) lisinopril 20 mg tablet 20 mg PO DAILY 10/16/23 04/01/24 furosemide 20 mg tablet 20 mg PO QAM 04/01/24 04/01/24 Allergies Allergy/AdvReac Type Severity Reaction Status Date / Time No Known Allergies Allergy Verified 04/01/24 10:39 Review of Systems Review of Systems: A 10 system review of systems was completed on the patient and is negative except for what is stated in the HPI. Nursing and ancillary documentation was reviewed. [facility] Past Medical History Medical History Abnormal electroretinogram [ERG] Abnormal results of thyroid function studies Acute left-sided weakness Adult BMI 33.0-33.9 kg/sq m Ataxia BMI 34.0-34.9,adult BMI 36.0-36.9,adult BMI 37.0-37.9, adult BMI over 35 Body mass index [BMI] 37.0-37.9, adult Candidiasis of skin Cerebrovascular accident (CVA) Decreased independence with activities of daily living History of SCC (squamous cell carcinoma) of skin Hypertensive heart disease with heart failure Iron deficiency anemia Loss of balance Microalbuminuria Neuropathy Overweight Recurrent falls Surgical History Surgical History H/O right knee surgery Hx of heart artery stent Family History Family History Father Diabetes mellitus Mother Diabetes mellitus Family history of Alzheimer's disease Sibling Multiple sclerosis Diabetes mellitus Social History Social History Smoking status: Never smoker Second hand tobacco smoke exposure: No Alcohol intake: never Drinks per week: 6 Substance use: never Substance use type: does not use Do You Feel Safe in your Home?: Yes Lack of Transportation: No Lack of Food: Never True Current Housing: I Have Housing Concerned About Future Housing: No Difficulty Paying Gas/Electric Bills: No Difficulty Paying for Meds: No Currently Unemployed: No Education: High School Diploma/GED Difficulty w/ Childcare or Family Care: No Living arrangements: with family 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 by the patient): Male Spiritual care concerns: No Exam Narrative: GENERAL: Well-appearing, well-nourished, and in no acute distress. HEAD: Normocephalic, atraumatic. EYES: PERRLA and EOMI. ENT: Nares clear, no rhinorrhea or epistaxis. Mucous membranes moist. NECK: Supple. CHEST: Clear to auscultation. No respiratory distress. HEART: Regular rate and rhythm. No murmur heard. Normal peripheral pulses. ABDOMEN: Soft, nontender, nondistended, normal active bowel sounds. EXTREMITIES: Normal range of motion. No edema. SKIN: Warm, dry, no rash. NEURO: No focal deficits. Alert and oriented x3. PSYCH: Normal mood and affect. Course Vital Signs Vital signs: Vital Signs Temperature 36.7 C 04/04/24 00:37 Pulse Rate 82 04/04/24 00:37 Respira
[2024-04-04 06:45] VITALS: BP 139/99; PULSE 89; RESP 16; O2SAT 96
--- NOTE | 2024-04-04 06:46 | PC.NURSE ---
This RN attempted to contact pt significant other, rubina w no answer. This RN was able to contact Dominic, whom states he will attempt to get in contact with rubina to arrange ride.
[2024-04-04 07:06] VITALS: BP 135/78; PULSE 88; RESP 16; O2SAT 97
== END 2024-04-04 07:30 | disposition home or self-care (01) ==
PROVIDERS: Emergency Provider Emergency Medicine; PCP Family Medicine
DX: R53.1 Weakness (principal); R29.6 Repeated falls; I11.0 Hypertensive heart disease with heart failure; I50.9 Heart failure, unspecified; E66.3 Overweight; Z68.32 Body mass index [BMI] 32.0-32.9, adult; D50.9 Iron deficiency anemia, unspecified; G62.9 Polyneuropathy, unspecified; Z95.5 Presence of coronary angioplasty implant and graft; Z86.73 Personal history of transient ischemic attack (TIA), and cerebral infarction without residual deficits; Z85.828 Personal history of other malignant neoplasm of skin; Z79.82 Long term (current) use of aspirin; Z79.899 Other long term (current) drug therapy; R94.31 Abnormal electrocardiogram [ECG] [EKG]; R93.0 Abnormal findings on diagnostic imaging of skull and head, not elsewhere classified; M47.812 Spondylosis without myelopathy or radiculopathy, cervical region; K57.90 Diverticulosis of intestine, part unspecified, without perforation or abscess without bleeding; K42.9 Umbilical hernia without obstruction or gangrene; K40.20 Bilateral inguinal hernia, without obstruction or gangrene, not specified as recurrent
CPT/HCPCS: 36415; 70450; 71260; 72125; 74177; 80053; 81001; 83605; 83735; 84145; 84484; 85025; 85610; 85730; 93005; 96374; 99284; J2270; Q9967

== ENCOUNTER 2024-04-07 06:41 | Inpatient (IN) | payer MEDICARE, SELFPAY ==
[2024-04-07] VITALS (11 sets, daily range): BP systolic 137–166; BP diastolic 95–108; PULSE 80–91; RESP 16–19; TEMP 36.6–36.8; O2SAT 95–100; BMI 29.4
--- NOTE | ~2024-04-07 | MR_ITS ---
EXAMINATION: MR lumbar spine wo/w con DATE: 04/12/2024 12:25 INDICATION: Ataxia. TECHNIQUE: Magnetic resonance imaging (MRI) of the lumbar spine was performed without and with 20 mL MultiHance intravenous contrast. COMPARISON: None FINDINGS: Bone alignment is normal. There is mild chronic anterior wedging of T12 and L1 vertebral bryant dies. Intervertebral disc heights are normal and lumbar spine. The distal spinal cord signal intensit y is normal. The conus medullaris is at T12-L1. The following disc levels are specifically discussed: L1-L2: There is a central protrusion. There is moderate right and mild left facet joint osteoarthriti s. There is no neural foraminal stenosis. There is mild central canal stenosis. L2-L3: The disc is bulging. There is moderate right and mild left facet joint osteoarthritis. There i s mild bilateral neural foraminal stenosis. There is no central canal stenosis. L3-L4: The disc is bulging. There is mild bilateral facet joint osteoarthritis. There is mild bilater al neural foraminal stenosis. There is mild central canal stenosis. L4-L5: The disc is bulging and has an annular fissure. There is severe bilateral facet joint osteoart hritis. There is moderate bilateral neural foraminal stenosis. There is mild central canal stenosis. L5-S1: The disc does not extend beyond the endplate margin. There is moderate right and mild left fac et joint osteoarthritis. There is no neural foraminal stenosis. There is no central canal stenosis. IMPRESSION: 1. Mild lumbar spondylosis. Reviewed, dictated and finalized at location A. IMPRESSION: 1. Mild lumbar spondylosis.
--- NOTE | ~2024-04-07 | MR_ITS ---
Procedure: MR thoracic spine wo/w con Ordering provider: Patricia Francis MD History: . ataxia . Comparison: None. Technique: MRI thoracic spine with and without contrast. FINDINGS: SPINAL CORD: Normal. No abnormal enhancement of the spinal cord or spinal canal. VERTEBRAL BODIES: Normal height and alignment. No compression fracture. Normal marrow signal. No abno rmal marrow enhancement. Bright signal areas seen in T10 and T11 on T1 and T2 weighted images which i s most likely a small hemangioma DISK SPACES: endplate changes seen at the level of T7-T8. Otherwise, normal. STENOSIS: None. PARASPINOUS SOFT TISSUES: Right kidney hydronephrotic changes. No abnormal enhancement of the paraspi nous soft tissues. IMPRESSION: No compression fracture or significant stenosis of the thoracic spine. No abnormal enhancement. Right kidney hydronephrotic changes. Reviewed, dictated and finalized at location A. IMPRESSION: No compression fracture or significant stenosis of the thoracic spine. No abno rmal enhancement. Right kidney hydronephrotic changes.
--- NOTE | ~2024-04-07 | MR_ITS ---
EXAMINATION: MR brain/brain stem wo con DATE: 04/08/2024 14:22 INDICATION: Ataxia. TECHNIQUE: Magnetic resonance imaging (MRI) of the brain and brainstem was performed without intraven ous contrast. COMPARISON: Head CT 04/07/2024 FINDINGS: There are scattered areas of nonspecific increased T2-weighted signal intensity in the cere bral white matter. There is increased T2-weighted signal intensity in the alcon with sparing of the pe riphery and corticospinal tracts. There is no intracranial hemorrhage, acute infarction, or abnormal intracranial mass lesion. There is enlargement of the lateral ventricles. The orbits are normal. The mastoid air cells are normal. IMPRESSION: 1. Increased T2-weighted signal intensity in the central alcon, which may be secondary to central pont ine myelinolysis or chronic small vessel ischemic disease. 2.. Mild nonspecific cerebral white matter disease, which likely represents chronic small vessel isch emic disease. 3. Stable mild enlargement of the lateral ventricles. This finding may be secondary to age-related br ain volume loss or normal pressure hydrocephalus. Reviewed, dictated and finalized at location A. IMPRESSION: 1. Increased T2-weighted signal intensity in the central alcon, which may be sec ondary to central pontine myelinolysis or chronic small vessel ischemic disease . 2.. Mild nonspecific cerebral white matter disease, which likely represents chr onic small vessel ischemic disease. 3. Stable mild enlargement of the lateral ventricles. This finding may be secon alma to age-related brain volume loss or normal pressure hydrocephalus.
--- NOTE | ~2024-04-07 | MR_ITS ---
EXAMINATION: MR cervical spine wo/w con DATE: 04/12/2024 12:25 INDICATION: Ataxia. TECHNIQUE: Magnetic resonance imaging (MRI) of the cervical spine was performed without and with 20 m L MultiHance intravenous contrast. COMPARISON: CT cervical spine 04/04/2024 FINDINGS: There is 8 degrees levocurvature of cervicothoracic spine. Vertebral body heights are isabella l. There is mildly decreased disc height at C4-C5, moderately decreased disc height at C5-C6, and sev erely decreased disc height at C6-C7. The spinal cord signal intensity is normal. The following disc levels are specifically discussed: C2-C3: The disc does not extend beyond the endplate margin. There is mild left uncovertebral joint os teoarthritis. There is moderate right and mild left facet joint osteoarthritis. There is mild left ne ural foraminal stenosis. There is no central canal stenosis. C3-C4: The disc does not extend beyond the endplate margin. There is no uncovertebral joint osteoarth ritis. There is mild bilateral facet joint osteoarthritis. There is mild left neural foraminal stenos is. There is no central canal stenosis. C4-C5: There is a central protrusion. There is moderate right and severe left uncovertebral joint ost eoarthritis. There is moderate right and mild left facet joint osteoarthritis. There is mild bilatera l neural foraminal stenosis. There is no central canal stenosis. C5-C6: The disc is bulging. There is severe bilateral uncovertebral joint osteoarthritis. There is mi ld bilateral facet joint osteoarthritis. There is moderate bilateral neural foraminal stenosis. There is no central canal stenosis. C6-C7: The disc is bulging. There is severe bilateral uncovertebral joint osteoarthritis. There is mi ld bilateral facet joint osteoarthritis. There is mild bilateral neural foraminal stenosis. There is mild central canal stenosis. C7-T1: There is a central extrusion. There is no uncovertebral joint osteoarthritis. There is mild bi lateral facet joint osteoarthritis. There is no neural foraminal stenosis. There is no central canal stenosis. IMPRESSION: 1. Severe cervical spondylosis. Reviewed, dictated and finalized at location A.
--- NOTE | ~2024-04-07 | CT_ITS ---
CT head without contrast Indication: Status post fall COMPARISON: 04/04/2024 Technique: Serial scans were obtained through the brain without the administration of contrast. Dose reduction technique was used on this scan by utilizing automated exposure control and iterative recon struction technique. The dose-length product (DLP) was 605.33 mGy-cm. Findings: There is no evidence of intracranial hemorrhage, mass lesion, or acute infarct. The ventri cles and subarachnoid spaces are dilated. Low attenuation regions are seen within the periventricula r white matter bilaterally, likely representing changes from chronic microvascular ischemic disease. There is no evidence of edema, mass effect or midline shift. The visualized paranasal sinuses and m astoid air cells are clear. Impression: No intracranial hemorrhage, mass, or acute infarct. Stable ventricular dilatation, which could reflect atrophic change versus possibly normal pressure hy drocephalus. Reviewed, dictated and finalized at location . Impression: No intracranial hemorrhage, mass, or acute infarct. Stable ventricular dilatation, which could reflect atrophic change versus possi jeremy normal pressure hydrocephalus.
--- NOTE | 2024-04-07 07:09 | ECG_ITS ---
Test Date: 2024-04-07 08:37:44 Measurements Intervals [place] Rate: 86 P: 5 CO: 166 QRS: -5 QRSD: 93 T: 29 QT: 372 QTc: 445 Interpretive Statements SINUS RHYTHM POOR R-WAVE PROGRESSION INFERIOR MYOCARDIAL INFARCTION , PROBABLY OLD [40+ ms Q WAVE AND/OR ST/T ABNORMALITY IN II/aVF] Compared to ECG 04/04/2024 01:55:18 NO SIGNIFICANT CHANGES Electronically Signed On 04-07-2024 11:55:04 CDT by Hali Pineda M.D.
[2024-04-07 07:18] LABS: Basophils Percent Auto 0.3 % (0.2-1.2); Eosinophils Absolute Auto 0.1 K/mm3 (0-0.3); Eosinophils Percent Auto 1.9 % (0-4.4); Hematocrit 41.5 % (42.0-52.0); Hemoglobin 14.4 g/dL (14.0-18.0); Immature Granulocyte Absolute 0.05 K/mm3 (0.00-0.031); Immature Granulocyte Percent A 0.8 % (0-0.5); Lymphocytes Absolute Auto 1.05 K/mm3 (0.9-3.2); Lymphocytes Percent Auto 16.5 % (18.3-44.2); Mean Corpuscular HGB Conc 34.7 g/dl (32-36); Mean Corpuscular Volume 92.2 fl (80-100); Mean Platelet Volume 8.9 fl (7.4-10.4); Monocytes Absolute Auto 0.6 K/mm3 (0.1-0.6); Monocytes Percent Auto 8.6 % (2.6-8.5); Neutrophils Absolute Auto 4.6 K/mm3 (1.3-6.7); Neutrophils Percent Auto 71.9 % (45.5-73.1); Platelet Count Result 201 k/mm3 (150-375); Red Cell Distribution Width 12.6 % (11.5-14.5); White Blood Count 6.4 K/mm3 (4.5-10.0)
[2024-04-07 07:26] LABS: Alanine Aminotransferase 20 U/L (6-50); Alkaline Phosphatase 114 U/L (38-126); Anion Gap 7 mmol/L (4-12); Aspartate Amino Transferase 22 U/L (17-59); Bilirubin,Total 0.5 mg/dL (0.2-1.3); Blood Urea Nitrogen 20 mg/dL (9-20); Calcium 9.1 mg/dL (8.4-10.2); Carbon Dioxide 27 mmol/L (22-30); Chloride 103 mmol/L (98-107); Estimated Glomerular Filt Rate > 60; Glucose 313 mg/dL (65-110); Potassium 3.9 mmol/L (3.4-5.0); Sodium 137 mmol/L (137-145)
--- NOTE | 2024-04-07 07:41 | PC.NURSE ---
report given to ammy garcia
[2024-04-07 07:42] LABS: INR 1.1
[2024-04-07 07:47] LABS: Appearance Urine Clear (Clear); Bacteria Urine None Seen /hpf; Bilirubin Urine Negative (Negative); Blood Urine Negative (Negative); Color Urine Yellow (Yellow); Glucose Urine UA 3+ mg/dL (Negative); Ketones Urine Trace mg/dL (Negative); Leukocyte Esterase Ur Negative LEU/UL (Negative); Nitrate Urine Negative (Negative); Non Pathogenic Casts 0-2; Protein Urine 1+ mg/dL (Negative); RBC Urine 0-2 /hpf (0-2); Specific Grav Ur 1.027 (1.001-1.035); Squamous Epithelial Cell Urine None Seen /hpf (Few); WBC Urine 0-5 /hpf (0-3)
[2024-04-07 07:51] LABS: Add Urine Microscopic? YES
--- NOTE | 2024-04-07 08:23 | ED.FALL ---
HPI - Fall General Chief Complaint: Fall Stated Complaint: multiple falls Time Seen by Provider: 04/07/24 07:06 History of Present Illness HPI Narrative: Pt presents after ground level fall. Pt says he lost his balance and fell today. Pt denies CP or palpitations. Pt unsure if he lost consciousness. Pt has been falling a lot of late per EMS. Pt not sure why he falls, but has gotten to a point that his PCP and family think he needs a more extensive work up including and MRI as they are concerned about a stroke. Related Data Home Medications Medication Instructions Recorded Confirmed aspirin 81 mg tablet,delayed 81 mg PO DAILY 08/30/19 04/07/24 release multivitamin 1 cap PO DAILY 08/30/19 04/07/24 dapagliflozin propanediol 10 mg 10 mg PO QAM 03/20/23 04/07/24 tablet (Farxiga) lisinopril 20 mg tablet 20 mg PO DAILY 10/16/23 04/07/24 furosemide 20 mg tablet 20 mg PO QAM 04/01/24 04/07/24 Allergies Allergy/AdvReac Type Severity Reaction Status Date / Time No Known Allergies Allergy Verified 04/01/24 10:39 Review of Systems Review of Systems: All systems reviewed & are unremarkable except as noted in HPI and below PMFSH Past Medical History Medical History Abnormal electroretinogram [ERG] Abnormal results of thyroid function studies Acute left-sided weakness Ataxia Candidiasis of skin Cerebrovascular accident (CVA) Decreased independence with activities of daily living History of SCC (squamous cell carcinoma) of skin Hypertensive heart disease with heart failure Iron deficiency anemia Loss of balance Microalbuminuria Neuropathy Overweight Recurrent falls Surgical History Surgical History H/O right knee surgery Hx of heart artery stent Family History Family History Father Diabetes mellitus Mother Diabetes mellitus Family history of Alzheimer's disease Sibling Multiple sclerosis Diabetes mellitus Social History Social History Smoking status: Never smoker Second hand tobacco smoke exposure: No Alcohol intake: former Substance use: never Substance use type: does not use Other substance usage details: 1-2 a month not a usual drinker Do You Feel Safe in your Home?: Yes Lack of Transportation: No Lack of Food: Never True Current Housing: I Have Housing Concerned About Future Housing: No Difficulty Paying Gas/Electric Bills: No Difficulty Paying for Meds: No Currently Unemployed: No Education: High School Diploma/GED Difficulty w/ Childcare or Family Care: No Living arrangements: with family 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 by the patient): Male Spiritual care concerns: No Exam Const: General: healthy appearing and no acute distress Nutritional Appearance: well nourished Orientation/consciousness: patient oriented x3 Limitations: no limitations HENMT: Head: contusion left occipital Eyes: Conjunctivae: conjunctivae normal Pupils: Equal, round and reactive pupils present EOM: EOMs intact bilaterally Neck: Neck: normal visual inspection and no lymphadenopathy Chest: Chest palpation & inspection: normal inspection of the chest Resp: Effort & Inspection: normal respiratory effort Auscultation: clear to auscultation bilaterally Cardio: Rate: regular rate Rhythm: regular rhythm GI: Auscultation: normal bowel sounds Skin: General skin exam: normal color Rashes: no rashes Neuro: General: patient oriented x3, moves all extremities, no meningeal signs, no focal motor deficits and CN's II-XI intact bilaterally Speech: normal speech Extrem: General: normal to inspection and no clubbing, cyanosis or edema Psych:
[2024-04-07 08:43] LABS: Partial Thromboplastin Time 30.4 Seconds (22.3-36.8)
[2024-04-07] MEDS: INSULIN HUMAN REGULAR (*BKC) 100 UNITS/ML 6 UNITS IV PUSH (10:36)
[2024-04-07 11:46] LABS: Glucose Point of Care 304 mg/dl (65-105)
--- NOTE | 2024-04-07 12:26 | PM.IMHP ---
H&P: HPI History of Present Illness Date/Time: 04/07/24 12:26 Chief Complaint: Frequent Falls Narrative: 68 y/o M presents here with frequent falls with PMH of ataxia, CVA, HF, HTN, SANKET, and recurrent falls. The patient presents here via EMS from home with recurrent falls with most recent occurring today. The patient reports a ground level fall due to tripping. Patient landed on his buttock. -head strike and -LOC. Patient has fallen 3-4 times in the last week. Per staff at the bedside he has had 3 near falls since arrival in patient. Per chart review, patient has been seen post-fall 4 times (including today's visit) this month. Per last PCP visit on 04/01, The patient and his girlfriend reported concerns about the frequency of falls and dizzy spells. Patient reports this has resolved for the most part. They requested being set up with home health and patient had an MRI ordered but has not been completed. Initial VS at presentation: No 7.9? F, HR 84, RR 18, 150/108, and 95% on RA. ED workup showed: No leukocytosis, no anemia, normal coags, no significant electrolyte derangements, creatinine 0.8 and GFR >60, glucose 313 and UA not consistent with UTI. CT of head showed no intracranial hemorrhage/ mass/ acute for infarct and stable ventricular dilation (atrophic changes versus possible normal pressure hydrocephalus). Review of Systems Review of Systems: All systems reviewed & are unremarkable except as noted in HPI and below PMFSH Past Medical History Medical History Abnormal electroretinogram [ERG] Abnormal results of thyroid function studies Acute left-sided weakness Ataxia Candidiasis of skin Cerebrovascular accident (CVA) Decreased independence with activities of daily living History of SCC (squamous cell carcinoma) of skin Hypertensive heart disease with heart failure Iron deficiency anemia Loss of balance Microalbuminuria Neuropathy Overweight Recurrent falls Surgical History Surgical History H/O right knee surgery Hx of heart artery stent Family History Family History Father Diabetes mellitus Mother Diabetes mellitus Family history of Alzheimer's disease Sibling Multiple sclerosis Diabetes mellitus Social History Social History Smoking status: Never smoker Second hand tobacco smoke exposure: No Alcohol intake: former Substance use: never Substance use type: does not use Other substance usage details: 1-2 a month not a usual drinker Do You Feel Safe in your Home?: Yes Lack of Transportation: No Lack of Food: Never True Current Housing: I Have Housing Concerned About Future Housing: No Difficulty Paying Gas/Electric Bills: No Difficulty Paying for Meds: No Currently Unemployed: No Education: High School Diploma/GED Difficulty w/ Childcare or Family Care: No Living arrangements: with family 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 by the patient): Male Spiritual care concerns: No Meds Home Medications and Allergies Home Medications Medication Instructions Recorded Confirmed Type aspirin 81 mg tablet,delayed 81 mg PO DAILY 08/30/19 04/07/24 History release multivitamin 1 cap PO DAILY 08/30/19 04/07/24 History syringe (disposable) 3 mL (Easy #25 ea 09/20/19 04/07/24 Rx [place] Luer Lock Syringe) safety needles 29 gauge x 1/2 #50 ea 01/17/22 04/07/24 Rx syringe (disposable) 3 mL (Easy #100 ea 01/22/22 04/07/24 Rx Touch Luer Lock Syringe) insulin syringe-needle U-100 1 mL See Rx Instructions .Route 08/01/22 04/07/24 Rx 31 gauge x 15/64 .COMPLEX #100 ea amlodipine 10 mg tablet 5 mg PO DAILY #90 tabs 08/08/22 04/07/24 Rx
--- NOTE | 2024-04-07 12:36 | WPDNEURCNPN ---
Assessment and Plan Assessment and plan (1) Frequent falls: Code(s): R29.6 - Repeated falls Status: Acute (2) T2DM (type 2 diabetes mellitus): Code(s): E11.9 - Type 2 diabetes mellitus without complications Status: Acute (3) Decreased independence with activities of daily living: Code(s): Z78.9 - Other specified health status Status: Acute (4) Action tremor: Code(s): G25.2 - Other specified forms of tremor Status: Acute Plan 1. Gait dysfunction multifactorial in origin most likely diabetic neuropathy with additional factor of supratentorial cerebral atrophy 2. Possibility of normal pressure hydrocephalus can be pursued further and has been tried in the past as well but very unlikely that he is a candidate for the further evaluation and surgical intervention cause of the significant neuropathy which again could very well be elevated by the drinking. 2. definitely need supportive advise I will discuss with him about the surgical intervention which we have done previously as well if he desired to have 2nd opinion. Ongoing complaint of dizziness probably related to the same autonomic neuropathic process and neuropathy. Consult date: 04/07/24 HPI: Paul Hernandez is a 68 year old male Admitted to the hospital subsequent to ground level fall secondary to imbalance and with no history of loss of consciousness but at the same time history of recurrent falls and his concerns about the stroke. Patient has been receiving aspirin 81mg daily, Farxiga 10mg daily, lisinopril 20mg daily, furosemide 20mg daily, he is not allergic to any medication, does have ongoing history of stroke in the past along with the hypertension, and imbalance with neuropathy, has also undergone right knee surgery, coronary stenting, never a smoker but drinks 6 drinks per week, initial vital signs were normal except blood pressure 150/108, CBC was normal BMP with blood sugar of 313 and UA negative, since admission has had CT scan of the head which documented no fracture or acute intracranial process except the small old lacunar infarct to the basal ganglia level bilaterally but symmetrical enlargement of the ventricles disproportionate to the increased prominence of the sulci raising the possibility of moderate central atrophy versus normal pressure hydrocephalus. Lumbar spine CT scan and thoracic spine consistent with mild spondylosis at thoracic level moderate lumbar spondylosis. Question has been raised about the diffuse idiopathic skeletal hyperostosis. Has had CT of the head in February of this year which was consistent with no aneurysm or intracranial stenosis also had this cervical spine CT scan in March of this year which was without evidence of any fracture. Patient does have ongoing history of essential tremor with strong family history in his father as well PMFSH Past Medical History Medical History Abnormal electroretinogram [ERG] Abnormal results of thyroid function studies Acute left-sided weakness Adult BMI 33.0-33.9 kg/sq m Ataxia BMI 34.0-34.9,adult BMI 36.0-36.9,adult BMI 37.0-37.9, adult BMI over 35 Body mass index [BMI] 37.0-37.9, adult Candidiasis of skin Cerebrovascular accident (CVA) Decreased independence with activities of daily living History of SCC (squamous cell carcinoma) of skin Hypertensive heart disease with heart failure Iron deficiency anemia Loss of balance Microalbuminuria Neuropathy Overweight Recurrent falls Surgical History Surgical History H/O right knee surgery Hx of heart artery stent Family History Family History Father Diabetes mellitus Mother Diabetes mellitus Family history of Alzheimer's disease Sibling Multiple sclerosis Diabetes mellitus Social History Soci
[2024-04-07] MEDS: PRIMIDONE 50 MG TABLET 100 MG PO ×2 (13:30→17:24)
[2024-04-07 17:05] LABS: Glucose Point of Care 381 mg/dl (65-105)
[2024-04-07] MEDS: INSULIN ASPART (*BKC) 100 UNITS/ML SUB-Q ×3 (17:23→22:29)
[2024-04-07] MEDS: metFORMIN HCL XR 500 MG TAB.SR.24H 2000 MG PO (17:24)
[2024-04-07 20:29] LABS: Glucose Point of Care 362 mg/dl (65-105)
[2024-04-07 22:07] LABS: Glucose Point of Care 286 mg/dl (65-105)
[2024-04-07 23:37] LABS: Glucose Point of Care 221 mg/dl (65-105)
[2024-04-08] VITALS (8 sets, daily range): BP systolic 127–163; BP diastolic 70–93; PULSE 75–90; RESP 16–18; TEMP 36.4–36.6; O2SAT 97–98
[2024-04-08 08:12] LABS: Glucose Point of Care 231 mg/dl (65-105)
[2024-04-08] MEDS: EMPAGLIFLOZIN 25 MG TABLET PO (09:57)
[2024-04-08] MEDS: lisinopriL 20 MG TABLET PO (09:57)
[2024-04-08] MEDS: MIRABEGRON 50 MG ER TABLET PO (09:58)
[2024-04-08] MEDS: ATORVASTATIN 40 MG TABLET PO (09:58)
[2024-04-08] MEDS: ASPIRIN 81 MG ENTERIC TABLET PO (09:58)
[2024-04-08] MEDS: PRIMIDONE 50 MG TABLET 100 MG PO ×3 (09:58→17:46)
[2024-04-08] MEDS: PREGABALIN (*CRX) 50 MG CAPSULE 100 MG PO (09:58)
[2024-04-08] MEDS: FUROSEMIDE 20 MG TABLET PO (09:58)
[2024-04-08] MEDS: MULTIVITAMINS THERAPEUTIC TAB (*BKC) 1 TABLET PO (09:58)
[2024-04-08] MEDS: amLODIPine BESYLATE 5 MG TABLET PO (09:59)
[2024-04-08] MEDS: INSULIN ASPART (*BKC) 100 UNITS/ML SUB-Q ×3 (10:00→17:47)
[2024-04-08] MEDS: INSULIN GLARGINE (*BKC) 100 UNITS/ML 60 UNITS SUB-Q (10:04)
[2024-04-08 12:02] LABS: Glucose Point of Care 292 mg/dl (65-105)
--- NOTE | 2024-04-08 12:23 | WPDNEUROPN ---
Progress Note: A&P Assessment and Plan (1) Frequent falls: Code(s): R29.6 - Repeated falls Status: Acute (2) T2DM (type 2 diabetes mellitus): Code(s): E11.9 - Type 2 diabetes mellitus without complications Status: Acute (3) Diabetic neuropathy: Qualifiers: Diabetes mellitus type: type 2 Diabetes mellitus complication detail: diabetic autonomic neuropathy Qualified Code(s): E11.43 - Type 2 diabetes mellitus with diabetic autonomic (poly)neuropathy Code(s): E11.40 - Type 2 diabetes mellitus with diabetic neuropathy, unspecified Status: Acute (4) Ataxia: Code(s): R27.0 - Ataxia, unspecified Status: Acute Plan A CT scan of brain was reviewed which shows prominent ventricles however it has not changed over the previous CT scans. I would suggest an MRI of the brain without contrast for now on also check his B12 and folic acid level and thyroid function test. I would also suggest to check his blood pressure supine and standing being get him into physical therapy for gait strengthening. He may require EMG nerve study of the lower limbs. You may consider an opinion from neurosurgeon regarding prominent ventricles to see if they would like to do any further studies from the point of view further evaluation for possible normal pressure hydrocephalus the early stages. Subjective Date/time seen: 04/08/24 12:23 Interval history: patient is admitted with the increasing difficulty with ambulation and falls. 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 Patient is also hard of hearing and does not have a hearing aid. He denies any difficulty with control of bladder or headache. He does have some concern regarding memory. There has been a question regarding hydrocephalus on the CT scan of brain. There is also history of alcoholism and states that he has cut down drinking for last 1 month. He drank mostly beer vague about the history of this. He has been falling 3 to [address] scan of brain and CT angiogram of the head and neck were performed which did not show any significant or new findings however ventricles are described as being prominent. These were however unchanged from the previous examination. Review of Systems Review of Systems: No additional items. Exam Narrative: Patient is mildly hard of hearing however no aphasia or dysarthria. He appears to have difficulty positioning himself in bed and tends to lean to left side today. He told me he will need some help to get a straight or to get out of the bed. Exam showed head and neck unremarkable. Cranial nerves on individual testing did not show any deficit. Motor system normal power and tone in both upper lower limbs however deep tendon reflexes decreased particularly at both knees and ankles. No asymmetry. Says he on mcduffie decreased sensation distally in both lower limbs. No fasciculations are seen. no cogwheeling or any significant movement Disorder were observed. Objective Data Vital Signs Vital Signs: Vital Signs - 24 hr 04/07/24 14:00 04/07/24 16:00 04/07/24 20:00 Temperature 36.8 C 36.6 C Pulse Rate 86 91 89 Respiratory Rate 18 18 Blood Pressure 166/100 H 158/95 H Pulse Oximetry 99 100 Oxygen Delivery Fraction of Inspired Oxygen 04/07/24 20:10 04/07/24 20:10 04/08/24 04:00 Temperature 36.6 C Pulse Rate 89 75 Respiratory Rate 17 Blood Pressure 163/93 H Pulse Oximetry 97 Oxygen Delivery Room Air Fraction of Inspired Oxygen 04/08/24 05:24 04/08/24 07:31 04/08/24 08:00 Temperature Pulse Rate 85 86 Respiratory Rate Blood Pressure Pulse Oximetry 98 Oxygen Delivery Room Air Fraction of Inspired Oxygen 21 04/08/24 09:58 Temperature Pulse Rate Respiratory Rate Blood Pressure Pulse Oximetry Oxygen Delivery Room Air Fraction of Inspired Oxygen Intake/Output Inta
--- NOTE | 2024-04-08 15:41 | PM.IMPN ---
Progress Note: A&P Assessment and Plan (1) Frequent falls: Code(s): R29.6 - Repeated falls Status: Acute (2) T2DM (type 2 diabetes mellitus): Code(s): E11.9 - Type 2 diabetes mellitus without complications Status: Acute (3) Ataxia: Code(s): R27.0 - Ataxia, unspecified Status: Acute Plan 68-year-old male with PMH obesity, insulin-dependent diabetes mellitus, diabetic peripheral neuropathy, hypertension, gait disturbance presents with complaint of recurrent falls. ER evaluation noted a neuro psychologically intact male. CT head on admission did not demonstrate acute findings except for stable mild lateral ventricular dilatation. Neurosurgery was contacted. Patient admitted on 04/07/2024 for further workup of recurrent falls. History has been widely inconsistent across patient contacts. Discussion on 04/08/2024 approximately 1600 with the son Dominic Hernandez revealed the following: The patient's girlfriend Meg Aceves, a , moved in approximately 2 years ago and this is when the patient's memory problem started. He also now reports the gait imbalance has been going on for about 6 months as opposed to a few weeks. He also reports the patient does not drink alcohol and states the patient's girlfriend took him to a bar and got him drunk. Additionally, Dominic Hernandez believes patient is being poisoned by the girlfriend. He asked that only superficial conversations are held with the girlfriend and detailed medical conversations and decision making be reserved for the son Dominic Hernandez and sister of the pt Alexa Hernandez. Reports a distant history of smoking marijuana, denies that the patient ever did illicit drugs, or drinks on a regular basis. ER reported A&O x3, since then the patient been noted to be A&O times 1-2. The health science writer's physical exam on 04/08 demonstrated a confused male who refused a physical exam. Nursing team consistently reports an altered male. There are reports of urinary incontinence as well. MRI brain without contrast on 04/08/2024 confirms the stable mild enlargement of lateral ventricles. Stable is relative, this was only earliest seen on CT head without contrast on 04/04/2024, 2 weeks prior. This correlates with an ER visit for recurrent falls which resulted in the patient leaving against medical advice. MRI also notes mild nonspecific cerebral white matter disease. It also reveals increased T2 weighted signal intensity in the central alcon indicative of either central pontine myelinolysis or chronic small-vessel ischemic disease. There are no documented wide swings in the patient's sodium levels. Spoke with Dr. Atkinson of neurology and it is unclear the significance of this. Workup otherwise ongoing with Neurology. Spoke with Dr. Post of neurosurgery briefly, stated to her the pt had a few weeks of gait imbalance. She states NPH is a longer term and inpatient consult is not necessary. Agreed. And, even with the new information of 6 months of falls and 2 years of unspecified neurocognitive decline, will defer further initial evaluation of NPH to our neurology consultants. In addition to B12 and folic acid and thyroid and vitamin-D levels, adding RPR and ammonia level along with ABG. Check orthostatic vitals as well. Will check a drugs of abuse urine screen requested by the son. Social work consult placed for the above-mentioned family dynamics. Patient is prior convicted felon so it is difficult to get him placed. Social work is working on that. Greater than 100 minutes spent on chart review, discussions with family, nursing, consultants and assessment/planning. #hypertension -chronic, cont MRI CT TECH amlodipine and lisinopril and jardiance. ctm #IDDM -cont insulin, accuchecks and sliding scale. F/E/N: saline lock IV, replace lytes as needed, consistent carbohydrate diet with dietary supplements GI prophylaxis: Not indicated DVT prophylaxis: SCDs only, hold pharmacological prophylaxis due to re
[2024-04-08 16:49] LABS: Glucose Point of Care 202 mg/dl (65-105)
[2024-04-08 17:17] LABS: CRP 1.5 mg/dL (<1.0); Cholesterol 165 mg/dL (0-200); Creatine Kinase 74 U/L (55-170); HDL Direct 28 mg/dL; Triglycerides 421 mg/dL (<150)
[2024-04-08 17:34] LABS: T4 Thyroxine 8.42 ug/dL (5.53-11.0)
[2024-04-08] MEDS: metFORMIN HCL XR 500 MG TAB.SR.24H 2000 MG PO (17:46)
[2024-04-08 18:09] LABS: LDL Cholesterol Direct 73 mg/dL
[2024-04-08 18:10] LABS: Alveolar/Arterial O2 Gradient 34.6 mmHg; Base Excess ABG 2.5 mEq/l (+/-2.0); Carboxyhemoglobin 1.6 % THb (0-2.0); Fractional Inspired Oxygen 21 %; HCO3 ABG 25.9 mEq/l (22.0-26.0); Methemoglobin ABG 0.3 %THb (0-1.5); Oxygen Content ABG 20.9 %vol (16.0-22.0); Oxygen Saturation ABG 95.3 % (95.0-100.0); Oxyhemoglobin 93.7 % THb (90.0-100.0); PCO2 ABG 36.7 mmHg (35.0-45.0); PO2 ABG 71.2 mmHg (80.0-100.0); PO2 FiO2 Ratio Arterial Blood 3.39 %; Reduced Hemoglobin 4.4 %THb (0-5.0); Total Hemoglobin 15.9 g/dL (12.0-18.0); pH ABG 7.467 (7.350-7.450)
[2024-04-08 18:13] LABS: Modified Allen's Test Pass; Site Drawn RIGHT RADIAL
[2024-04-08 18:26] LABS: Vitamin D 25 Hydroxy 36.4 ng/mL
[2024-04-08 18:29] LABS: Folic Acid > 20.0 ng/mL (2.76->20)
[2024-04-08 18:46] LABS: Amphetamine Screen Urine Negative (Negative); Barbiturate Screen Urine Positive (Negative); Benzodiazepines Screen Urine Negative (Negative); Cannabinoid Screen Urine Negative (Negative); Cocaine Screen Urine Negative (Negative); Methadone Screen Urine Negative (Negative); Opiate Screen Urine Negative (Negative); Phencyclidine Screen Urine Negative (Negative)
[2024-04-08 20:41] LABS: Glucose Point of Care 261 mg/dl (65-105)
[2024-04-09] VITALS (10 sets, daily range): BP systolic 111–156; BP diastolic 71–99; PULSE 78–105; RESP 16–18; TEMP 36.2–36.6; O2SAT 96–98
[2024-04-09 05:03] LABS: Hematocrit 47.2 % (42.0-52.0); Hemoglobin 15.4 g/dL (14.0-18.0); Mean Corpuscular HGB Conc 32.6 g/dl (32-36); Mean Corpuscular Hemoglobin 31.2 pg (26-34); Mean Corpuscular Volume 95.7 fl (80-100); Mean Platelet Volume 9.7 fl (7.4-10.4); Platelet Count Result 190 k/mm3 (150-375); Red Blood Count 4.93 M/mm3 (4.6-6.20); Red Cell Distribution Width 12.5 % (11.5-14.5); White Blood Count 7.2 K/mm3 (4.5-10.0)
[2024-04-09 05:07] LABS: Ammonia < 9 umol/L (9-30)
[2024-04-09 05:11] LABS: Anion Gap 10 mmol/L (4-12); Blood Urea Nitrogen 20 mg/dL (9-20); Calcium 9.3 mg/dL (8.4-10.2); Carbon Dioxide 22 mmol/L (22-30); Chloride 103 mmol/L (98-107); Estimated CRCL calculation 74 ml/min; Estimated Glomerular Filt Rate > 60; Glucose 151 mg/dL (65-110); Magnesium 2.3 mg/dL (1.6-2.3); Potassium 3.9 mmol/L (3.4-5.0); Sodium 135 mmol/L (137-145)
[2024-04-09 09:49] LABS: Glucose Point of Care 184 mg/dl (65-105)
[2024-04-09] MEDS: PREGABALIN (*CRX) 50 MG CAPSULE 100 MG PO (09:50)
[2024-04-09] MEDS: FUROSEMIDE 20 MG TABLET PO (09:50)
[2024-04-09] MEDS: ATORVASTATIN 40 MG TABLET PO (09:51)
[2024-04-09] MEDS: PRIMIDONE 50 MG TABLET 100 MG PO ×3 (09:51→17:10)
[2024-04-09] MEDS: lisinopriL 20 MG TABLET PO (09:51)
[2024-04-09] MEDS: INSULIN GLARGINE (*BKC) 100 UNITS/ML 60 UNITS SUB-Q (09:51)
[2024-04-09] MEDS: MIRABEGRON 50 MG ER TABLET PO (09:51)
[2024-04-09] MEDS: ASPIRIN 81 MG ENTERIC TABLET PO (09:51)
[2024-04-09] MEDS: amLODIPine BESYLATE 5 MG TABLET PO (09:51)
[2024-04-09] MEDS: MULTIVITAMINS THERAPEUTIC TAB (*BKC) 1 TABLET PO (09:51)
[2024-04-09] MEDS: EMPAGLIFLOZIN 25 MG TABLET PO (09:51)
[2024-04-09 12:20] LABS: Glucose Point of Care 258 mg/dl (65-105)
[2024-04-09] MEDS: INSULIN ASPART (*BKC) 100 UNITS/ML SUB-Q ×2 (12:34→17:10)
[2024-04-09 14:18] LABS: Rapid Plasma Reagin Non-Reactive (NonReactive)
--- NOTE | 2024-04-09 15:58 | PC.NURSE ---
Patient significant other Meg Aceves requesting results of MRI and lab results from today. After reading Dr. Francis's note, I am hesitant to give her this information as the patient is altered and family has disclosed that they do not want important health information given to Meg Aceves. I notified central office technician who called Care Coordination to ask if we are able to remove Meg Aceves from patient's contact list. Per Care Coordination, we cannot remove Meg Aceves from contact list and we should chose one point of contact for the patient who can disclose information to other family members/friends. I then called Dr. Francis to ask him if he would call the patient's sister, Alexa, and update her with MRI results/ lab results. I notified Meg Aceves that we would be giving all updates/test results to Alexa Hernandez, patient's sister. Dr. Francis would like Meg Aceves removed from patient contact list so there is no confusion for any staff member to be disclosing information to her that the family does not want her to know. I then called Care Coordination back and spoke with Jarrod to see if legally we should remove Meg Aceves from patient's contact list, as patient is altered and family does not want her to have access to certain parts of patient's medical records. Care Coordination told me that we should not remove the contact as Meg Aceves is not the first person listed for patient's contact list and that we should just assign a point of contact and pass that on in report for other staff members. ensure to pass on to oncoming shift nurse manager RN.
--- NOTE | 2024-04-09 16:07 | WPDNEUROPN ---
Progress Note: A&P Assessment and Plan (1) Frequent falls: Code(s): R29.6 - Repeated falls Status: Acute (2) Neurologic gait dysfunction: Code(s): R26.9 - Unspecified abnormalities of gait and mobility Status: Acute Plan Mr. Hernandez is a 68 year old male with a history of diabetes, neuropathy, HTN, prior stroke presenting with altered mental status and falls. Etiology is unclear. Neuroimaging shows enlarged ventricles which could reflect ex vacuo dilatation vs normal pressure hydrocephalus. From PCP notes last week, his exam is documented as AOx3. MRI brain has ruled out any acute cause for his mental status change. There is some confusion about whether there has been more longer term cognitive changes or if this is truly an acute change. I spoke with patient's sister and girlfriend and they both report that his cognitive changes started about 2-3 weeks ago suggestive of a subacute onset. Given the more recent change in mentation, I discussed with the hospitalist that LP with CSF evaluation for infectious/autoimmune etiology should be pursued. If possible, would be beneficial to do large volume LP followed by gait assessment 30-60 minutes after to assess for improvement in gait (which would be suggestive of NPH). Given the gait dysfunction and reports of urinary incontinence, I would also obtain MRI of the complete spine with and without process to rule out myelopathic process. EMG/NCS of the lower extremities should also be done as outpatient. Subjective Date/time seen: 04/09/24 16:07 Interval history: Mr. Hernandez is a 68 year old male with a history of diabetes, neuropathy, HTN, prior stroke presenting with altered mental status and falls. Per the hospitalist's note, patient started having cognitive issues about two years ago and started having gait issues over the past 6 months, which seems to have worsened over the past month as he has presented to the ER several times after fall. He was seen by his PCP on 04/01 and his mental status was documented as AOx3 at that time. Since being admitted, patient has been encephalopathic with orientation x 1-2. He had a CT head which showed ventricular dilation -- either ex vacuo or NPH per radiologist read. MRI brain with similar read. B12, folate, and TSH levels are normal. I attempted to call son to get more information about what patient's level of functioning is at baseline but it went to voicemail. Per chart review he lives with a girlfriend and has been for the past two years. Neurosurgery was consulted and they did not feel that patient required inpatient neurosurgical consultation. Spoke with sister -- she feels that he has had some mild gait issues for months, but had worsening over the past few weeks. She feels that his cognition declined during the same time period. She reports that he is not a chronic or daily drinker. Spoke with girlfriend as well -- she reports that he has had gait issues for over 6 months and has been having urinary incontinence for that period of time as well. However, she feels that his cognition worsened over the past few weeks, but at baseline he was AOX3. She also reports that patient has never been a chronic or daily drinker. She mentioned that he has a history of many head injuries related to playing football from childhood to his 30s. Review of Systems Review of Systems: Patient denies any complaints ROS unobtainable: Yes unobtainable due to mental status Exam Const: General: comfortable and no acute distress HENMT: Mouth: Yes moist mucous membranes Eyes: Pupils: Equal, round and reactive pupils present Other: gaze appears to be conjugate Resp: Effort & Inspection: normal respiratory effort Skin: General skin exam: normal color Neuro: Other: Awake, oriented to self and location but not time. PERRL, face appears to be symmetric, tongue is midline. Strength is symmetric and age appropriate in bilateral upper extremities. He has
[2024-04-09 16:42] LABS: Glucose Point of Care 275 mg/dl (65-105)
[2024-04-09] MEDS: metFORMIN HCL XR 500 MG TAB.SR.24H 2000 MG PO (17:09)
[2024-04-09 22:12] LABS: Glucose Point of Care 285 mg/dl (65-105)
[2024-04-10] VITALS (8 sets, daily range): BP systolic 100–138; BP diastolic 65–91; PULSE 82–108; RESP 16–18; TEMP 36.4–36.6; O2SAT 96–99
[2024-04-10 08:30] LABS: Glucose Point of Care 148 mg/dl (65-105)
[2024-04-10] MEDS: PRIMIDONE 50 MG TABLET 100 MG PO ×3 (09:18→17:11)
[2024-04-10] MEDS: MIRABEGRON 50 MG ER TABLET PO (09:19)
[2024-04-10] MEDS: ASPIRIN 81 MG ENTERIC TABLET PO (09:19)
[2024-04-10] MEDS: PREGABALIN (*CRX) 50 MG CAPSULE 100 MG PO (09:19)
[2024-04-10] MEDS: lisinopriL 20 MG TABLET PO (09:19)
[2024-04-10] MEDS: EMPAGLIFLOZIN 25 MG TABLET PO (09:19)
[2024-04-10] MEDS: amLODIPine BESYLATE 5 MG TABLET PO (09:19)
[2024-04-10] MEDS: ATORVASTATIN 40 MG TABLET PO (09:19)
[2024-04-10] MEDS: FUROSEMIDE 20 MG TABLET PO (09:19)
[2024-04-10] MEDS: MULTIVITAMINS THERAPEUTIC TAB (*BKC) 1 TABLET PO (09:19)
[2024-04-10] MEDS: INSULIN GLARGINE (*BKC) 100 UNITS/ML 60 UNITS SUB-Q (09:22)
[2024-04-10 11:51] LABS: Glucose Point of Care 316 mg/dl (65-105)
[2024-04-10] MEDS: INSULIN ASPART (*BKC) 100 UNITS/ML SUB-Q ×2 (12:05→17:11)
[2024-04-10 16:43] LABS: Glucose Point of Care 257 mg/dl (65-105)
[2024-04-10] MEDS: metFORMIN HCL XR 500 MG TAB.SR.24H 2000 MG PO (17:11)
--- NOTE | 2024-04-10 18:27 | PM.IMPN ---
Progress Note: A&P Assessment and Plan (1) Frequent falls: Code(s): R29.6 - Repeated falls Status: Acute (2) T2DM (type 2 diabetes mellitus): Qualifiers: Diabetes mellitus correction insulin use: without correction use Diabetes mellitus complication status: with other specified complication Qualified Code(s): E11.69 - Type 2 diabetes mellitus with other specified complication Code(s): E11.9 - Type 2 diabetes mellitus without complications Status: Acute (3) Ataxia: Code(s): R27.0 - Ataxia, unspecified Status: Acute Plan 68-year-old male with H obesity, insulin-dependent diabetes mellitus, diabetic peripheral neuropathy, hypertension, gait disturbance presents with complaint of recurrent falls. ER evaluation noted a neuro psychologically intact male. CT head on admission did not demonstrate acute findings except for stable mild lateral ventricular dilatation. Neurosurgery was contacted. Patient admitted on 04/07/2024 for further workup of recurrent falls. History has been widely inconsistent across patient contacts. Discussion on 04/08/2024 approximately 1600 with the son Dominic Hernandez revealed the following: The patient's girlfriend Meg Aceves, a , moved in approximately 2 years ago and this is when the patient's memory problem started. He also now reports the gait imbalance has been going on for about 6 months as opposed to a few weeks. He also reports the patient does not drink alcohol and states the patient's girlfriend took him to a bar and got him drunk. Additionally, Dominic Hernandez believes patient is being poisoned by the girlfriend. He asked that only superficial conversations are held with the girlfriend and detailed medical conversations and decision making be reserved for the son Dominic Hernandez and sister of the pt Alexa Hernandez. Reports a distant history of smoking marijuana, denies that the patient ever did illicit drugs, or drinks on a regular basis. ER reported A&O x3, since then the patient been noted to be A&O times 1-2. The automobile service writer's physical exam on 04/08 demonstrated a confused male who refused a physical exam. Nursing team consistently reports an altered male. There are reports of urinary incontinence as well. MRI brain without contrast on 04/08/2024 confirms the stable mild enlargement of lateral ventricles. Stable is relative, this was only earliest seen on CT head without contrast on 04/04/2024, 2 weeks prior. This correlates with an ER visit for recurrent falls which resulted in the patient leaving against medical advice. MRI also notes mild nonspecific cerebral white matter disease. It also reveals increased T2 weighted signal intensity in the central alcon indicative of either central pontine myelinolysis or chronic small-vessel ischemic disease. There are no documented wide swings in the patient's sodium levels. Spoke with Dr. Atkinson of neurology and it is unclear the significance of this. Workup otherwise ongoing with Neurology. Spoke with Dr. Post of neurosurgery briefly, stated to her the pt had a few weeks of gait imbalance. She states NPH is a longer term and inpatient consult is not necessary. Agreed. And, even with the new information of 6 months of falls and 2 years of unspecified neurocognitive decline, will defer further initial evaluation of NPH to our neurology consultants. In addition to B12 and folic acid and thyroid and vitamin-D levels, adding RPR and ammonia level along with ABG. Check orthostatic vitals as well. Will check a drugs of abuse urine screen requested by the son. Social work consult placed for the above-mentioned family dynamics. Patient is prior convicted felon so it is difficult to get him placed. childcare worker is working on that. April 10 update: Patient has slightly improved cognition although still requires mod assist and has a unsteady gait. Neurology recommendation appreciated. Discussions had with Neurosurgery and Neurology. Gwendolyn
[2024-04-10] MEDS: ENOXAPARIN 40 MG/0.4 ML SYRINGE SUB-Q (19:44)
[2024-04-11 07:05] VITALS: BP 110/66; PULSE 74; RESP 14; TEMP 36.5; O2SAT 96
[2024-04-11] MEDS: ATORVASTATIN 40 MG TABLET PO (08:11)
[2024-04-11] MEDS: ASPIRIN 81 MG ENTERIC TABLET PO (08:11)
[2024-04-11] MEDS: amLODIPine BESYLATE 5 MG TABLET PO (08:11)
[2024-04-11] MEDS: PRIMIDONE 50 MG TABLET 100 MG PO ×3 (08:11→17:02)
[2024-04-11 08:12] LABS: Glucose Point of Care 86 mg/dl (65-105)
[2024-04-11] MEDS: MIRABEGRON 50 MG ER TABLET PO (08:12)
[2024-04-11] MEDS: MULTIVITAMINS THERAPEUTIC TAB (*BKC) 1 TABLET PO (08:12)
[2024-04-11] MEDS: INSULIN GLARGINE (*BKC) 100 UNITS/ML 60 UNITS SUB-Q (08:12)
[2024-04-11] MEDS: PREGABALIN (*CRX) 50 MG CAPSULE 100 MG PO (08:12)
[2024-04-11] MEDS: EMPAGLIFLOZIN 25 MG TABLET PO (08:12)
[2024-04-11] MEDS: lisinopriL 20 MG TABLET PO (08:12)
[2024-04-11] MEDS: FUROSEMIDE 20 MG TABLET PO (08:12)
[2024-04-11] MEDS: ENOXAPARIN 40 MG/0.4 ML SYRINGE SUB-Q (08:14)
[2024-04-11 12:27] LABS: Glucose Point of Care 195 mg/dl (65-105)
[2024-04-11] MEDS: ACETAMINOPHEN 325 MG TABLET 650 MG PO (13:43)
--- NOTE | 2024-04-11 14:50 | PM.IMPN ---
Progress Note: A&P Assessment and Plan (1) Frequent falls: Code(s): R29.6 - Repeated falls Status: Acute (2) T2DM (type 2 diabetes mellitus): Qualifiers: Diabetes mellitus assisted insulin use: without assisted use Diabetes mellitus complication status: with other specified complication Qualified Code(s): E11.69 - Type 2 diabetes mellitus with other specified complication Code(s): E11.9 - Type 2 diabetes mellitus without complications Status: Acute (3) Ataxia: Code(s): R27.0 - Ataxia, unspecified Status: Acute Plan 68-year-old male with H obesity, insulin-dependent diabetes mellitus, diabetic peripheral neuropathy, hypertension, gait disturbance presents with complaint of recurrent falls. ER evaluation noted a neuro psychologically intact male. CT head on admission did not demonstrate acute findings except for stable mild lateral ventricular dilatation. Neurosurgery was contacted. Patient admitted on 04/07/2024 for further workup of recurrent falls. History has been widely inconsistent across patient contacts. Discussion on 04/08/2024 approximately 1600 with the son Dominic Hernandez revealed the following: The patient's girlfriend Meg Aceves, a , moved in approximately 2 years ago and this is when the patient's memory problem started. He also now reports the gait imbalance has been going on for about 6 months as opposed to a few weeks. He also reports the patient does not drink alcohol and states the patient's girlfriend took him to a bar and got him drunk. Additionally, Dominic Hernandez believes patient is being poisoned by the girlfriend. He asked that only superficial conversations are held with the girlfriend and detailed medical conversations and decision making be reserved for the son Dominic Hernandez and sister of the pt Alexa Hernandez. Reports a distant history of smoking marijuana, denies that the patient ever did illicit drugs, or drinks on a regular basis. ER reported A&O x3, since then the patient been noted to be A&O times 1-2. The movie writer's physical exam on 04/08 demonstrated a confused male who refused a physical exam. Nursing team consistently reports an altered male. There are reports of urinary incontinence as well. MRI brain without contrast on 04/08/2024 confirms the stable mild enlargement of lateral ventricles. Stable is relative, this was only earliest seen on CT head without contrast on 04/04/2024, 2 weeks prior. This correlates with an ER visit for recurrent falls which resulted in the patient leaving against medical advice. MRI also notes mild nonspecific cerebral white matter disease. It also reveals increased T2 weighted signal intensity in the central alcon indicative of either central pontine myelinolysis or chronic small-vessel ischemic disease. There are no documented wide swings in the patient's sodium levels. Spoke with Dr. Atkinson of neurology and it is unclear the significance of this. Workup otherwise ongoing with Neurology. Spoke with Dr. Post of neurosurgery briefly, stated to her the pt had a few weeks of gait imbalance. She states NPH is a longer term and inpatient consult is not necessary. Agreed. And, even with the new information of 6 months of falls and 2 years of unspecified neurocognitive decline, will defer further initial evaluation of NPH to our neurology consultants. B12 and folic acid levels normal. Vitamin-D level normal. TSH and T4 normal. Ammonia level normal. ABG without hypercapnia. RPR negative. Orthostatic vitals negative. Drugs of abuse positive for barbiturates. Patient is on primidone at home. Social work consult placed for the above-mentioned family dynamics. They have provided the patient with resources. Patient is prior convicted felon so it is difficult to get him placed. right of way worker is working on that, they seem to have made progress and believe they can get him to SNF for rehab. April 10 update: Patient has slightly improve
[2024-04-11 16:54] LABS: Glucose Point of Care 202 mg/dl (65-105)
[2024-04-11] MEDS: INSULIN ASPART (*BKC) 100 UNITS/ML SUB-Q (17:03)
[2024-04-11] MEDS: metFORMIN HCL XR 500 MG TAB.SR.24H 2000 MG PO (17:05)
[2024-04-11 19:50] VITALS: BP 114/72; PULSE 78; RESP 18; TEMP 36.4; O2SAT 98
[2024-04-11 19:54] VITALS: BP 128/91; PULSE 71; RESP 18; TEMP 36.4; O2SAT 99
[2024-04-11 21:11] LABS: Glucose Point of Care 185 mg/dl (65-105)
[2024-04-11 22:00] VITALS: BP 126/69; PULSE 70; RESP 18; TEMP 36.8; O2SAT 100
[2024-04-12] VITALS (11 sets, daily range): BP systolic 108–135; BP diastolic 70–92; PULSE 67–84; RESP 16–18; TEMP 36.6–37.1; O2SAT 96–98
[2024-04-12 06:34] LABS: Basophils Percent Auto 0.3 % (0.2-1.2); Eosinophils Absolute Auto 0.2 K/mm3 (0-0.3); Eosinophils Percent Auto 3.2 % (0-4.4); Hemoglobin 13.8 g/dL (14.0-18.0); Immature Granulocyte Absolute 0.06 K/mm3 (0.00-0.031); Immature Granulocyte Percent A 0.8 % (0-0.5); Lymphocytes Absolute Auto 1.57 K/mm3 (0.9-3.2); Lymphocytes Percent Auto 20.9 % (18.3-44.2); Mean Corpuscular HGB Conc 32.9 g/dl (32-36); Mean Corpuscular Hemoglobin 31.6 pg (26-34); Mean Corpuscular Volume 96.1 fl (80-100); Mean Platelet Volume 9.5 fl (7.4-10.4); Monocytes Absolute Auto 0.7 K/mm3 (0.1-0.6); Monocytes Percent Auto 9.2 % (2.6-8.5); Neutrophils Absolute Auto 4.9 K/mm3 (1.3-6.7); Neutrophils Percent Auto 65.6 % (45.5-73.1); Platelet Count Result 244 k/mm3 (150-375); Red Blood Count 4.37 M/mm3 (4.6-6.20); Red Cell Distribution Width 12.7 % (11.5-14.5); White Blood Count 7.5 K/mm3 (4.5-10.0)
[2024-04-12 06:46] LABS: Anion Gap 6 mmol/L (4-12); Blood Urea Nitrogen 29 mg/dL (9-20); Calcium 8.7 mg/dL (8.4-10.2); Carbon Dioxide 26 mmol/L (22-30); Chloride 103 mmol/L (98-107); Estimated CRCL calculation 61 ml/min; Estimated Glomerular Filt Rate > 60; Glucose 111 mg/dL (65-110); Magnesium 2.4 mg/dL (1.6-2.3); Potassium 3.9 mmol/L (3.4-5.0); Sodium 135 mmol/L (137-145)
[2024-04-12 06:48] LABS: Prothrombin Time 13.3 Seconds (11.1-14.7)
[2024-04-12 08:28] LABS: Glucose Point of Care 125 mg/dl (65-105)
[2024-04-12] MEDS: MULTIVITAMINS THERAPEUTIC TAB (*BKC) 1 TABLET PO (09:36)
[2024-04-12] MEDS: PREGABALIN (*CRX) 50 MG CAPSULE 100 MG PO (09:36)
[2024-04-12] MEDS: PRIMIDONE 50 MG TABLET 100 MG PO ×3 (09:37→17:24)
[2024-04-12] MEDS: EMPAGLIFLOZIN 25 MG TABLET PO (09:37)
[2024-04-12] MEDS: MIRABEGRON 50 MG ER TABLET PO (09:37)
[2024-04-12] MEDS: amLODIPine BESYLATE 5 MG TABLET PO (09:37)
[2024-04-12] MEDS: ASPIRIN 81 MG ENTERIC TABLET PO (09:38)
[2024-04-12] MEDS: ATORVASTATIN 40 MG TABLET PO (09:38)
--- NOTE | 2024-04-12 10:50 | PCPTNOTE ---
The patient treatment was not able to be completed on 04/12/2024 due to patient out of the room for MRI. Will plan to continue treatment per plan of care.
--- NOTE | 2024-04-12 10:56 | PCNFU ---
Nutrition Follow-Up Complete: Unintended weight loss as related to uncontrolled DM as evidenced by Glu 313. Goal: Adequate Intake of at least 75% of meals and supplements Patient is progressing towards goal. We will continue current goal. Pt current nutrition is NPO. Nutrition recommendation: [facility] [place] Last recorded weight is 98.5 kg, no new weight to report. Bowel Motility:+BM reported 04/09 Labs Reviewed:Mg 2.4, Glu 111, Na 135 Meds Noted: Jardiance, Lantus, Glucophage Skin: WNL Additional Notes: Patient is currently NPO for MRI today. Patient has been tolerating a diabetic diet. Glucerna shakes are being provided BID for additional 220 kcals and 10 gms protein. Agree with diet orders. Will monitor weight, labs, skin, oral intake, meds every 5 days.
--- NOTE | 2024-04-12 11:10 | PCOTNOTE ---
Pt is currently out of room for testing. Will attempt at a later time per poc duration/frequency.
--- NOTE | 2024-04-12 11:32 | PM.IMPN ---
Progress Note: A&P Assessment and Plan (1) Frequent falls: Code(s): R29.6 - Repeated falls Status: Acute (2) T2DM (type 2 diabetes mellitus): Qualifiers: Diabetes mellitus senior living insulin use: without senior living use Diabetes mellitus complication status: with other specified complication Qualified Code(s): E11.69 - Type 2 diabetes mellitus with other specified complication Code(s): E11.9 - Type 2 diabetes mellitus without complications Status: Acute (3) Ataxia: Code(s): R27.0 - Ataxia, unspecified Status: Acute Plan 68-year-old male with H obesity, insulin-dependent diabetes mellitus, diabetic peripheral neuropathy, hypertension, gait disturbance presents with complaint of recurrent falls. ER evaluation noted a neuro psychologically intact male. CT head on admission did not demonstrate acute findings except for stable mild lateral ventricular dilatation. Neurosurgery was contacted. Patient admitted on 04/07/2024 for further workup of recurrent falls. History has been widely inconsistent across patient contacts. Discussion on 04/08/2024 approximately 1600 with the son Dominic Hernandez revealed the following: The patient's girlfriend Meg Aceves, a , moved in approximately 2 years ago and this is when the patient's memory problem started. He also now reports the gait imbalance has been going on for about 6 months as opposed to a few weeks. He also reports the patient does not drink alcohol and states the patient's girlfriend took him to a bar and got him drunk. Additionally, Dominic Hernandez believes patient is being poisoned by the girlfriend. He asked that only superficial conversations are held with the girlfriend and detailed medical conversations and decision making be reserved for the son Dominic Hernandez and sister of the pt Alexa Hernandez. Reports a distant history of smoking marijuana, denies that the patient ever did illicit drugs, or drinks on a regular basis. ER reported A&O x3, since then the patient been noted to be A&O times 1-2. The information writer's physical exam on 04/08 demonstrated a confused male who refused a physical exam. Nursing team consistently reports an altered male. There are reports of urinary incontinence as well. MRI brain without contrast on 04/08/2024 confirms the stable mild enlargement of lateral ventricles. Stable is relative, this was only earliest seen on CT head without contrast on 04/04/2024, 2 weeks prior. This correlates with an ER visit for recurrent falls which resulted in the patient leaving against medical advice. MRI also notes mild nonspecific cerebral white matter disease. It also reveals increased T2 weighted signal intensity in the central alcon indicative of either central pontine myelinolysis or chronic small-vessel ischemic disease. There are no documented wide swings in the patient's sodium levels. Spoke with Dr. Atkinson of neurology and it is unclear the significance of this. Workup otherwise ongoing with Neurology. Spoke with Dr. Post of neurosurgery briefly, stated to her the pt had a few weeks of gait imbalance. She states NPH is a longer term and inpatient consult is not necessary. Agreed. And, even with the new information of 6 months of falls and 2 years of unspecified neurocognitive decline, will defer further initial evaluation of NPH to our neurology consultants. B12 and folic acid levels normal. Vitamin-D level normal. TSH and T4 normal. Ammonia level normal. ABG without hypercapnia. RPR negative. Orthostatic vitals negative. Drugs of abuse positive for barbiturates. Patient is on primidone at home. Social work consult placed for the above-mentioned family dynamics. They have provided the patient with resources. Patient is prior convicted felon so it is difficult to get him placed. rock worker is working on that, they seem to have made progress and believe they can get him to SNF for rehab. 04/10/24: Patient has slightly improved cogniti
[2024-04-12 12:34] LABS: Glucose Point of Care 118 mg/dl (65-105)
[2024-04-12] MEDS: INSULIN GLARGINE (*BKC) 100 UNITS/ML 60 UNITS SUB-Q (13:00)
[2024-04-12 17:16] LABS: Glucose Point of Care 113 mg/dl (65-105)
[2024-04-12] MEDS: metFORMIN HCL XR 500 MG TAB.SR.24H 2000 MG PO (17:24)
[2024-04-12 20:06] LABS: Glucose Point of Care 159 mg/dl (65-105)
[2024-04-12] MEDS: ACETAMINOPHEN 325 MG TABLET 650 MG PO (20:16)
[2024-04-13] VITALS (8 sets, daily range): BP systolic 118–151; BP diastolic 72–92; PULSE 63–93; RESP 16; TEMP 36.3–36.8; O2SAT 99–100
[2024-04-13 05:48] LABS: Basophils Percent Auto 0.2 % (0.2-1.2); Eosinophils Absolute Auto 0.1 K/mm3 (0-0.3); Eosinophils Percent Auto 1.4 % (0-4.4); Hemoglobin 14.4 g/dL (14.0-18.0); Immature Granulocyte Absolute 0.05 K/mm3 (0.00-0.031); Immature Granulocyte Percent A 0.6 % (0-0.5); Lymphocytes Absolute Auto 1.41 K/mm3 (0.9-3.2); Lymphocytes Percent Auto 17.5 % (18.3-44.2); Mean Corpuscular HGB Conc 32.7 g/dl (32-36); Mean Corpuscular Hemoglobin 31.1 pg (26-34); Mean Platelet Volume 9.1 fl (7.4-10.4); Monocytes Absolute Auto 0.7 K/mm3 (0.1-0.6); Monocytes Percent Auto 8.4 % (2.6-8.5); Neutrophils Absolute Auto 5.8 K/mm3 (1.3-6.7); Neutrophils Percent Auto 71.9 % (45.5-73.1); Platelet Count Result 244 k/mm3 (150-375); Red Blood Count 4.63 M/mm3 (4.6-6.20); Red Cell Distribution Width 12.5 % (11.5-14.5); White Blood Count 8.1 K/mm3 (4.5-10.0)
[2024-04-13 06:21] LABS: Alanine Aminotransferase 32 U/L (6-50); Albumin Level 3.8 g/dL (3.5-5.1); Alkaline Phosphatase 123 U/L (38-126); Anion Gap 5 mmol/L (4-12); Aspartate Amino Transferase 31 U/L (17-59); Bilirubin,Total 0.5 mg/dL (0.2-1.3); Blood Urea Nitrogen 22 mg/dL (9-20); Carbon Dioxide 29 mmol/L (22-30); Chloride 105 mmol/L (98-107); Estimated CRCL calculation 74 ml/min; Estimated Glomerular Filt Rate > 60; Glucose 58 mg/dL (65-110); Sodium 139 mmol/L (137-145)
[2024-04-13] MEDS: GLUCOSE ORAL GEL 15 GM OF GLUCSE IN 37.5 GM TUBE PO (06:27)
[2024-04-13 06:52] LABS: Glucose Point of Care 114 mg/dl (65-105)
[2024-04-13 08:06] LABS: T3 Free 2.8 pg/mL
[2024-04-13 08:11] LABS: Glucose Point of Care 75 mg/dl (65-105)
[2024-04-13] MEDS: MIRABEGRON 50 MG ER TABLET PO (08:40)
[2024-04-13] MEDS: PREGABALIN (*CRX) 50 MG CAPSULE 100 MG PO (08:40)
[2024-04-13] MEDS: EMPAGLIFLOZIN 25 MG TABLET PO (08:41)
[2024-04-13] MEDS: amLODIPine BESYLATE 5 MG TABLET PO (08:41)
[2024-04-13] MEDS: FUROSEMIDE 20 MG TABLET PO (08:41)
[2024-04-13] MEDS: lisinopriL 20 MG TABLET PO (08:41)
[2024-04-13] MEDS: PRIMIDONE 50 MG TABLET 100 MG PO ×3 (08:41→17:17)
[2024-04-13] MEDS: ATORVASTATIN 40 MG TABLET PO (08:41)
[2024-04-13] MEDS: MULTIVITAMINS THERAPEUTIC TAB (*BKC) 1 TABLET PO (08:41)
[2024-04-13] MEDS: ASPIRIN 81 MG ENTERIC TABLET PO (08:41)
[2024-04-13 12:01] LABS: Glucose Point of Care 167 mg/dl (65-105)
[2024-04-13 16:52] LABS: Glucose Point of Care 182 mg/dl (65-105)
[2024-04-13] MEDS: metFORMIN HCL XR 500 MG TAB.SR.24H 2000 MG PO (17:17)
--- NOTE | 2024-04-13 18:07 | PM.IMPN ---
Progress Note: A&P Assessment and Plan (1) Frequent falls: Code(s): R29.6 - Repeated falls Status: Acute (2) T2DM (type 2 diabetes mellitus): Qualifiers: Diabetes mellitus halfway insulin use: without halfway use Diabetes mellitus complication status: with other specified complication Qualified Code(s): E11.69 - Type 2 diabetes mellitus with other specified complication Code(s): E11.9 - Type 2 diabetes mellitus without complications Status: Acute (3) Ataxia: Code(s): R27.0 - Ataxia, unspecified Status: Acute Plan Paul Hernandez is a 68-year-old male with H obesity, insulin-dependent diabetes mellitus, diabetic peripheral neuropathy, hypertension, gait disturbance presents with complaint of recurrent falls. ER evaluation noted a neuro psychologically intact male. CT head on admission did not demonstrate acute findings except for stable mild lateral ventricular dilatation. Neurosurgery was contacted. Patient admitted on 04/07/2024 for further workup of recurrent falls. History has been widely inconsistent across patient contacts. Discussion on 04/08/2024 approximately 1600 with the son Dominic Hernandez revealed the following: The patient's girlfriend Meg Aceves, a , moved in approximately 2 years ago and this is when the patient's memory problem started. He also now reports the gait imbalance has been going on for about 6 months as opposed to a few weeks. He also reports the patient does not drink alcohol and states the patient's girlfriend took him to a bar and got him drunk. Additionally, Dominic Hernandez believes patient is being poisoned by the girlfriend. He asked that only superficial conversations are held with the girlfriend and detailed medical conversations and decision making be reserved for the son Dominic Hernandez and sister of the pt Alexa Hernandez. Reports a distant history of smoking marijuana, denies that the patient ever did illicit drugs, or drinks on a regular basis. ER reported A&O x3, since then the patient been noted to be A&O times 1-2. The communications writer's physical exam on 04/08 demonstrated a confused male who refused a physical exam. Nursing team consistently reports an altered male. There are reports of urinary incontinence as well. MRI brain without contrast on 04/08/2024 confirms the stable mild enlargement of lateral ventricles. Stable is relative, this was only earliest seen on CT head without contrast on 04/04/2024, 2 weeks prior. This correlates with an ER visit for recurrent falls which resulted in the patient leaving against medical advice. MRI also notes mild nonspecific cerebral white matter disease. It also reveals increased T2 weighted signal intensity in the central alcon indicative of either central pontine myelinolysis or chronic small-vessel ischemic disease. There are no documented wide swings in the patient's sodium levels. Spoke with Dr. Atkinson of neurology and it is unclear the significance of this. Workup otherwise ongoing with Neurology. Spoke with Dr. Psot of neurosurgery briefly, stated to her the pt had a few weeks of gait imbalance. She states NPH is a longer term and inpatient consult is not necessary. Agreed. And, even with the new information of 6 months of falls and 2 years of unspecified neurocognitive decline, will defer further initial evaluation of NPH to our neurology consultants. B12 and folic acid levels normal. Vitamin-D level normal. TSH and T4 normal. Ammonia level normal. ABG without hypercapnia. RPR negative. Orthostatic vitals negative. Drugs of abuse positive for barbiturates. Patient is on primidone at home. Social work consult placed for the above-mentioned family dynamics. They have provided the patient with resources. Patient is prior convicted felon so it is difficult to get him placed. workers compensation examiner is working on that, they seem to have made progress and believe they can get him to SNF for rehab. 04/10/24: Patient has slightly
[2024-04-13] MEDS: INSULIN GLARGINE (*BKC) 100 UNITS/ML 20 UNITS SUB-Q (21:22)
[2024-04-13 21:51] LABS: Glucose Point of Care 236 mg/dl (65-105)
[2024-04-14] VITALS (7 sets, daily range): BP systolic 109–139; BP diastolic 66–84; PULSE 69–86; RESP 16–18; TEMP 36.2–36.6; O2SAT 97–100
[2024-04-14 05:10] LABS: Basophils Percent Auto 0.4 % (0.2-1.2); Eosinophils Absolute Auto 0.2 K/mm3 (0-0.3); Eosinophils Percent Auto 2.3 % (0-4.4); Hematocrit 43.8 % (42.0-52.0); Hemoglobin 14.3 g/dL (14.0-18.0); Immature Granulocyte Absolute 0.05 K/mm3 (0.00-0.031); Immature Granulocyte Percent A 0.6 % (0-0.5); Lymphocytes Absolute Auto 1.82 K/mm3 (0.9-3.2); Lymphocytes Percent Auto 23.2 % (18.3-44.2); Mean Corpuscular HGB Conc 32.6 g/dl (32-36); Mean Corpuscular Hemoglobin 31.4 pg (26-34); Mean Corpuscular Volume 96.1 fl (80-100); Mean Platelet Volume 9.3 fl (7.4-10.4); Monocytes Absolute Auto 0.7 K/mm3 (0.1-0.6); Monocytes Percent Auto 8.4 % (2.6-8.5); Neutrophils Absolute Auto 5.1 K/mm3 (1.3-6.7); Neutrophils Percent Auto 65.1 % (45.5-73.1); Platelet Count Result 263 k/mm3 (150-375); Red Blood Count 4.56 M/mm3 (4.6-6.20); Red Cell Distribution Width 12.4 % (11.5-14.5); White Blood Count 7.9 K/mm3 (4.5-10.0)
[2024-04-14 05:26] LABS: Alanine Aminotransferase 29 U/L (6-50); Albumin Level 3.8 g/dL (3.5-5.1); Alkaline Phosphatase 122 U/L (38-126); Anion Gap 8 mmol/L (4-12); Aspartate Amino Transferase 25 U/L (17-59); Bilirubin,Total 0.4 mg/dL (0.2-1.3); Blood Urea Nitrogen 20 mg/dL (9-20); Calcium 9.1 mg/dL (8.4-10.2); Carbon Dioxide 27 mmol/L (22-30); Chloride 105 mmol/L (98-107); Estimated CRCL calculation 67 ml/min; Estimated Glomerular Filt Rate > 60; Glucose 55 mg/dL (65-110); Potassium 4.1 mmol/L (3.4-5.0); Sodium 140 mmol/L (137-145)
[2024-04-14 05:39] LABS: Glucose Point of Care 101 mg/dl (65-105)
[2024-04-14 07:50] LABS: Glucose Point of Care 67 mg/dl (65-105)
[2024-04-14] MEDS: MULTIVITAMINS THERAPEUTIC TAB (*BKC) 1 TABLET PO (08:57)
[2024-04-14] MEDS: ACETAMINOPHEN 325 MG TABLET 650 MG PO (08:57)
[2024-04-14] MEDS: MIRABEGRON 50 MG ER TABLET PO (08:57)
[2024-04-14] MEDS: PRIMIDONE 50 MG TABLET 100 MG PO ×3 (08:57→17:24)
[2024-04-14] MEDS: lisinopriL 20 MG TABLET PO (08:57)
[2024-04-14] MEDS: EMPAGLIFLOZIN 25 MG TABLET PO (08:58)
[2024-04-14] MEDS: amLODIPine BESYLATE 5 MG TABLET PO (08:58)
[2024-04-14] MEDS: PREGABALIN (*CRX) 50 MG CAPSULE 100 MG PO (08:58)
[2024-04-14] MEDS: ASPIRIN 81 MG ENTERIC TABLET PO (08:58)
[2024-04-14] MEDS: ATORVASTATIN 40 MG TABLET PO (08:58)
[2024-04-14] MEDS: FUROSEMIDE 20 MG TABLET PO (08:58)
[2024-04-14 11:47] LABS: Glucose Point of Care 198 mg/dl (65-105)
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
[2024-04-14 16:45] LABS: Glucose Point of Care 254 mg/dl (65-105)
[2024-04-14] MEDS: INSULIN ASPART (*BKC) 100 UNITS/ML SUB-Q (17:24)
[2024-04-14] MEDS: metFORMIN HCL XR 500 MG TAB.SR.24H 2000 MG PO (17:27)
[2024-04-14] MEDS: INSULIN GLARGINE (*BKC) 100 UNITS/ML 20 UNITS SUB-Q (21:29)
[2024-04-14 21:44] LABS: Glucose Point of Care 200 mg/dl (65-105)
[2024-04-15 04:42] LABS: Glucose Point of Care 123 mg/dl (65-105)
[2024-04-15 04:42] LABS: Glucose Point of Care 140 mg/dl (65-105)
[2024-04-15 05:21] LABS: Basophils Percent Auto 0.3 % (0.2-1.2); Eosinophils Absolute Auto 0.2 K/mm3 (0-0.3); Eosinophils Percent Auto 2.7 % (0-4.4); Hematocrit 43.1 % (42.0-52.0); Hemoglobin 13.9 g/dL (14.0-18.0); Immature Granulocyte Absolute 0.05 K/mm3 (0.00-0.031); Immature Granulocyte Percent A 0.6 % (0-0.5); Lymphocytes Absolute Auto 1.41 K/mm3 (0.9-3.2); Lymphocytes Percent Auto 18.3 % (18.3-44.2); Mean Corpuscular HGB Conc 32.3 g/dl (32-36); Mean Corpuscular Hemoglobin 31.4 pg (26-34); Mean Corpuscular Volume 97.3 fl (80-100); Mean Platelet Volume 9.5 fl (7.4-10.4); Monocytes Absolute Auto 0.7 K/mm3 (0.1-0.6); Monocytes Percent Auto 9.5 % (2.6-8.5); Neutrophils Absolute Auto 5.3 K/mm3 (1.3-6.7); Neutrophils Percent Auto 68.6 % (45.5-73.1); Platelet Count Result 240 k/mm3 (150-375); Red Blood Count 4.43 M/mm3 (4.6-6.20); Red Cell Distribution Width 12.6 % (11.5-14.5); White Blood Count 7.7 K/mm3 (4.5-10.0)
[2024-04-15 05:37] LABS: Alanine Aminotransferase 26 U/L (6-50); Albumin Level 3.7 g/dL (3.5-5.1); Alkaline Phosphatase 116 U/L (38-126); Anion Gap 5 mmol/L (4-12); Aspartate Amino Transferase 24 U/L (17-59); Bilirubin,Total 0.4 mg/dL (0.2-1.3); Blood Urea Nitrogen 22 mg/dL (9-20); Calcium 8.7 mg/dL (8.4-10.2); Carbon Dioxide 29 mmol/L (22-30); Chloride 105 mmol/L (98-107); Estimated CRCL calculation 61 ml/min; Estimated Glomerular Filt Rate > 60; Glucose 126 mg/dL (65-110); Potassium 4.2 mmol/L (3.4-5.0); Sodium 139 mmol/L (137-145)
[2024-04-15 07:30] VITALS: BP 142/79; PULSE 67; RESP 16; TEMP 36.6; O2SAT 97
[2024-04-15 08:21] LABS: Glucose Point of Care 120 mg/dl (65-105)
[2024-04-15] MEDS: ASPIRIN 81 MG ENTERIC TABLET PO (09:13)
[2024-04-15] MEDS: ATORVASTATIN 40 MG TABLET PO (09:13)
[2024-04-15] MEDS: PREGABALIN (*CRX) 50 MG CAPSULE 100 MG PO (09:13)
[2024-04-15] MEDS: amLODIPine BESYLATE 5 MG TABLET PO (09:14)
[2024-04-15] MEDS: EMPAGLIFLOZIN 25 MG TABLET PO (09:14)
[2024-04-15] MEDS: PRIMIDONE 50 MG TABLET 100 MG PO ×2 (09:14→12:23)
[2024-04-15] MEDS: MULTIVITAMINS THERAPEUTIC TAB (*BKC) 1 TABLET PO (09:14)
[2024-04-15] MEDS: MIRABEGRON 50 MG ER TABLET PO (09:14)
[2024-04-15] MEDS: lisinopriL 20 MG TABLET PO (09:14)
[2024-04-15] MEDS: FUROSEMIDE 20 MG TABLET PO (09:14)
[2024-04-15 11:40] VITALS: BP 132/82; PULSE 89; RESP 16; TEMP 36.5; O2SAT 98
[2024-04-15 12:28] LABS: Glucose Point of Care 281 mg/dl (65-105)
[2024-04-15] MEDS: INSULIN ASPART (*BKC) 100 UNITS/ML SUB-Q (12:29)
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
== END 2024-04-15 14:31 | DRG 92 ==
LOC: ANHED 09:54 → ANH2MED 10:23
PROVIDERS: Internal Medicine; Psychiatry & Neurology Neurology; Admitting Provider General Practice; Emergency Provider Emergency Medicine; PCP Family Medicine; Visit Provider General Practice
DX: R27.0 Ataxia, unspecified (principal); G93.49 Other encephalopathy; E11.40 Type 2 diabetes mellitus with diabetic neuropathy, unspecified; I11.0 Hypertensive heart disease with heart failure; I50.9 Heart failure, unspecified; D50.9 Iron deficiency anemia, unspecified; M47.816 Spondylosis without myelopathy or radiculopathy, lumbar region; M47.812 Spondylosis without myelopathy or radiculopathy, cervical region; G31.89 Other specified degenerative diseases of nervous system; G25.0 Essential tremor; R29.6 Repeated falls; Z95.5 Presence of coronary angioplasty implant and graft; Z79.82 Long term (current) use of aspirin; Z86.73 Personal history of transient ischemic attack (TIA), and cerebral infarction without residual deficits; Z79.4 Long term (current) use of insulin
CPT/HCPCS: 36415; 36600; 70450; 70551; 72156; 72157; 72158; 80048; 80053; 80061; 80307; 81001; 82140; 82306; 82375; 82550; 82607; 82746; 82805; 82948; 83050; 83735; 84436; 84443; 84480; 85025; 85027; 85610; 85730; 86140; 86592; 93005; 97110; 97116; 97161; 97166; 97530; 97535; 99285; A9270; A9577; G0378; J1650; J1815

== ENCOUNTER 2024-04-15 18:31 | Observation (INO) | payer MEDICARE, SELFPAY ==
[2024-04-15 18:29] VITALS: BP 127/84; PULSE 87; RESP 15; TEMP 36.8; O2SAT 96
--- NOTE | 2024-04-15 18:57 | PC.NURSE ---
Pt attempted to get out of bed on his own upon RN and tech entering room. Pt unsteady and redirected to bed, pt peed on floor and changed into hospital gown. Pt became verbally aggressive and security entered room to de-escalate. Pt successfully de-escalated and reminded that this behavior is not tolerated.
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
--- NOTE | 2024-04-15 19:45 | PC.NURSE ---
pt ambulatory and trying to exit the ambulance bay at this time. Pt stopped by ammy Bob and security mehdi. No distress noted and pt placed back in his bed with bed alarm reactivated.
[2024-04-15 20:21] LABS: Basophils Percent Auto 0.4 % (0.2-1.2); Eosinophils Absolute Auto 0.1 K/mm3 (0-0.3); Eosinophils Percent Auto 1.8 % (0-4.4); Hematocrit 43.9 % (42.0-52.0); Hemoglobin 15.3 g/dL (14.0-18.0); Immature Granulocyte Absolute 0.05 K/mm3 (0.00-0.031); Immature Granulocyte Percent A 0.6 % (0-0.5); Lymphocytes Absolute Auto 1.31 K/mm3 (0.9-3.2); Lymphocytes Percent Auto 16.5 % (18.3-44.2); Mean Corpuscular HGB Conc 34.9 g/dl (32-36); Mean Corpuscular Hemoglobin 32.1 pg (26-34); Mean Corpuscular Volume 92.2 fl (80-100); Mean Platelet Volume 9.5 fl (7.4-10.4); Monocytes Absolute Auto 0.6 K/mm3 (0.1-0.6); Monocytes Percent Auto 7.4 % (2.6-8.5); Neutrophils Absolute Auto 5.8 K/mm3 (1.3-6.7); Neutrophils Percent Auto 73.3 % (45.5-73.1); Platelet Count Result 283 k/mm3 (150-375); Red Blood Count 4.76 M/mm3 (4.6-6.20); Red Cell Distribution Width 12.5 % (11.5-14.5)
[2024-04-15 20:37] LABS: Alanine Aminotransferase 30 U/L (6-50); Albumin Level 4.2 g/dL (3.5-5.1); Alkaline Phosphatase 133 U/L (38-126); Anion Gap 8 mmol/L (4-12); Aspartate Amino Transferase 34 U/L (17-59); Bilirubin,Total 0.6 mg/dL (0.2-1.3); Blood Urea Nitrogen 23 mg/dL (9-20); Calcium 8.9 mg/dL (8.4-10.2); Carbon Dioxide 28 mmol/L (22-30); Chloride 100 mmol/L (98-107); Estimated CRCL calculation 67 ml/min; Estimated Glomerular Filt Rate > 60; Glucose 215 mg/dL (65-110); Potassium 4.4 mmol/L (3.4-5.0); Sodium 136 mmol/L (137-145)
[2024-04-15 20:37] LABS: Magnesium 2.2 mg/dL (1.6-2.3)
[2024-04-15 21:11] VITALS: PULSE 94; RESP 16; O2SAT 99
--- NOTE | 2024-04-15 21:29 | PC.NURSE ---
pt linens and depend changed. Pt transferred up to 3ms @ this time.
[2024-04-15 21:36] VITALS: BMI 29.2
[2024-04-15 21:40] VITALS: BP 132/64; PULSE 85; RESP 16; TEMP 36.6; O2SAT 96
[2024-04-15 21:58] VITALS: BP 132/64; PULSE 85; TEMP 36.6; O2SAT 96
--- NOTE | 2024-04-15 22:50 | ADMGEN ---
This patient, Paul Hernandez, was admitted to [facility] Surg Room 323-02. Patient/family oriented to hospital policies and general routines including ID bracelet, bed and alarms, visiting hours, pain management, procedures, bathroom and other care routines, personal items, smoking policy, room service/diet, and visiting hours. Information on how to activate the Rapid Response Team has been discussed. Patient/Family are encouraged to report perceived risks to care and to ask questions if they do not understand what they are told or what they should do.
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
[2024-04-16 05:56] VITALS: BP 114/72; PULSE 73; RESP 16; TEMP 36.2; O2SAT 97
[2024-04-16] MEDS: PRIMIDONE 50 MG TABLET 100 MG PO ×3 (08:03→16:58)
[2024-04-16] MEDS: ENOXAPARIN 40 MG/0.4 ML SYRINGE SUB-Q (08:03)
[2024-04-16 08:04] LABS: Glucose Point of Care 171 mg/dl (65-105)
[2024-04-16] MEDS: PREGABALIN (*CRX) 50 MG CAPSULE 100 MG PO (08:04)
[2024-04-16] MEDS: amLODIPine BESYLATE 5 MG TABLET PO (08:04)
[2024-04-16] MEDS: MULTIVITAMINS THERAPEUTIC TAB (*BKC) 1 TABLET PO (08:04)
[2024-04-16] MEDS: ASPIRIN 81 MG ENTERIC TABLET PO (08:04)
[2024-04-16] MEDS: lisinopriL 20 MG TABLET PO (08:04)
[2024-04-16] MEDS: MIRABEGRON 50 MG ER TABLET PO (08:04)
[2024-04-16] MEDS: ATORVASTATIN 40 MG TABLET PO (08:04)
[2024-04-16] MEDS: FUROSEMIDE 20 MG TABLET PO (08:04)
--- NOTE | 2024-04-16 09:37 | PC.NURSE ---
Pt's IV found on floor of patient room, pt. unaware IV was pulled out and unsure how this happened.
[2024-04-16 11:37] LABS: Glucose Point of Care 190 mg/dl (65-105)
[2024-04-16 13:49] VITALS: O2SAT 96
[2024-04-16 14:00] VITALS: BP 118/81; PULSE 64; RESP 17; TEMP 36.1; O2SAT 98
--- NOTE | 2024-04-16 14:45 | PM.IMPN ---
Progress Note: A&P Assessment and Plan (1) Debility: Code(s): R53.81 - Other malaise Status: Acute Assessment and Plan: Patient recently presented with hx of recurrent falls. History has been inconsistent but essentially patient with gait imbalance x 6 months MRI brain w/o contrast 04/08/2024 confirms the stable mild enlargement of lateral ventricles compared to CT head 04/04/24, increased T2 weighted signal intensity in the central alcon indicative of either central pontine myelinolysis or chronic small-vessel ischemic disease. There are no documented hyponatremia. B12, folate, VitD and TSH normal. Ammonia level normal. ABG without hypercapnia. RPR negative. UDS positive for barbiturates. Patient is on primidone at home. Patient was discharged on 04/15/24 to SNF but he was agitated and abusive so they refused to accept him and sent him back to the ED PT/OT re-ordered (2) Frequent falls: Code(s): R29.6 - Repeated falls Status: Acute Assessment and Plan: As above (3) T2DM (type 2 diabetes mellitus): Qualifiers: Diabetes mellitus care home insulin use: without care home use Diabetes mellitus complication status: with other specified complication Qualified Code(s): E11.69 - Type 2 diabetes mellitus with other specified complication Code(s): E11.9 - Type 2 diabetes mellitus without complications Status: Acute Assessment and Plan: he patient's blood glucose was reviewed on 04/16 Glucose stable Continue AccuCheks covering with sliding scale. Hypoglycemia protocol available as needed. Will change Lantus back to 20U once a day at night as he was getting last admission. (4) Essential hypertension: Code(s): I10 - Essential (primary) hypertension Status: Acute Assessment and Plan: Patient's blood pressure was reviewed on 04/14 Blood pressure remains well controlled. Will continue to follow Plan DVT prophylaxis: Lovenox Code Status: Full code Disposition: [facility] vs SNF for rehab Subjective Date/time seen: 04/16/24 14:45 Interval history: 68yo male with DM with diabetic peripheral neuropathy, HTN, CVA and gait disturbance who initially presented with complaint of recurrent falls who is now back again due to the facility refusing to accept patient because patient was abusive to staff. Patient denies CP, SOB, n/v or cough. He pulled out his IV per RN. Patient is alert but confused. Hx unreliable. Review of Systems Review of Systems: ROS unobtainable: Yes unobtainable due to mental status Exam Narrative: AF 97.1 114/72 73 16 96% ra Gen - NARD Chest - CTA bilaterally, nml RR CV - RRR S1/S2 Abd - Soft, NT/ND, Positive BS Ext - No pedal edema Neuro - Alert but confused. Psych - Nml mood and affect Skin - Warm and dry Objective Data Vital Signs Vital Signs: Vital Signs - 24 hr 04/15/24 18:29 04/15/24 21:11 04/15/24 21:40 Temperature 98.3 F 97.9 F Pulse Rate 87 94 85 Respiratory Rate 15 16 16 Blood Pressure 127/84 132/64 Pulse Oximetry 96 99 96 Oxygen Delivery Room Air 04/15/24 22:47 04/16/24 05:56 04/16/24 08:00 Temperature 97.1 F L Pulse Rate 73 Respiratory Rate 16 Blood Pressure 114/72 Pulse Oximetry 97 Oxygen Delivery Room Air Room Air 04/16/24 13:25 04/16/24 13:49 04/15/24 21:58 Temperature 97.9 F Pulse Rate 85 Respiratory Rate Blood Pressure 132/64 Pulse Oximetry 96 96 Oxygen Delivery Room Air Room Air Intake/Output Intake/Output: Intake & Output 04/13/24 04/14/24 04/15/24 04/16/24 23:59 23:59 23:59 23:59 Intake Total 120 Output Total 500 Balance -380 Meds/Results Medications: Active Medications Generic Name Dose Route Start Last Admin Trade Name Freq PRN Reason Stop Dose Admin Amlodipine Besylate 5 mg 04/16/24 09:00 04/16/24 08:04 Amlodipine Besylate 5 Mg Tablet PO 5 mg DAILY JOLIE Administration Aspirin
[2024-04-16 16:49] LABS: Glucose Point of Care 213 mg/dl (65-105)
[2024-04-16] MEDS: INSULIN ASPART (*BKC) 100 UNITS/ML SUB-Q ×2 (16:58→21:15)
[2024-04-16 21:00] VITALS: BP 113/74; PULSE 73; RESP 18; TEMP 36.2; O2SAT 100
[2024-04-16 21:12] LABS: Glucose Point of Care 263 mg/dl (65-105)
[2024-04-16] MEDS: INSULIN GLARGINE (*BKC) 100 UNITS/ML 20 UNITS SUB-Q (21:16)
[2024-04-17 06:00] VITALS: BP 121/75; PULSE 98; RESP 16; TEMP 35.6; O2SAT 99
--- NOTE | 2024-04-17 06:41 | PC.NURSE ---
On 04/17/24, the RECORD CENTER COORDINATOR, [ Carol], provided care and completed [facility] on [facility] patient. I have reviewed the RECORD CENTER COORDINATOR's documentation and agree with the findings.
[2024-04-17 08:10] LABS: Glucose Point of Care 163 mg/dl (65-105)
[2024-04-17] MEDS: PRIMIDONE 50 MG TABLET 100 MG PO ×2 (08:39→12:09)
[2024-04-17] MEDS: amLODIPine BESYLATE 5 MG TABLET PO (08:39)
[2024-04-17] MEDS: FUROSEMIDE 20 MG TABLET PO (08:40)
[2024-04-17] MEDS: ATORVASTATIN 40 MG TABLET PO (08:40)
[2024-04-17] MEDS: ASPIRIN 81 MG ENTERIC TABLET PO (08:40)
[2024-04-17] MEDS: MIRABEGRON 50 MG ER TABLET PO (08:40)
[2024-04-17] MEDS: PREGABALIN (*CRX) 50 MG CAPSULE 100 MG PO (08:41)
[2024-04-17] MEDS: lisinopriL 20 MG TABLET PO (08:42)
[2024-04-17] MEDS: MULTIVITAMINS THERAPEUTIC TAB (*BKC) 1 TABLET PO (08:42)
[2024-04-17 11:36] LABS: Glucose Point of Care 358 mg/dl (65-105)
[2024-04-17] MEDS: INSULIN ASPART (*BKC) 100 UNITS/ML SUB-Q (12:09)
--- NOTE | 2024-04-17 13:07 | PM.DS ---
DS: Admitting Diagnosis Discharge Date 04/17/24 Admitting Diagnosis Agitation DS: Discharge Diagnosis Discharge Diagnosis (1) Debility: Code(s): R53.81 - Other malaise Status: Acute (2) Frequent falls: Code(s): R29.6 - Repeated falls Status: Acute Assessment and Plan: As above (3) T2DM (type 2 diabetes mellitus): Qualifiers: Diabetes mellitus senior living insulin use: without senior living use Diabetes mellitus complication status: with other specified complication Qualified Code(s): E11.69 - Type 2 diabetes mellitus with other specified complication Code(s): E11.9 - Type 2 diabetes mellitus without complications Status: Acute (4) Essential hypertension: Code(s): I10 - Essential (primary) hypertension Status: Acute DS: Summary Hospital Course Reason for hospitalization: 68yo male with DM with diabetic peripheral neuropathy, HTN, CVA and gait disturbance who initially presented with complaint of recurrent falls who is now back again due to the facility refusing to accept patient because patient was abusive to staff. Please see H&P for details. Hospital Course: Patient recently presented with hx of recurrent falls. History has been inconsistent but essentially patient with gait imbalance x 6 months. MRI brain w/o contrast 04/08/2024 confirms the stable mild enlargement of lateral ventricles compared to CT head 04/04/24, increased T2 weighted signal intensity in the central alcon indicative of either central pontine myelinolysis or chronic small-vessel ischemic disease. There are no documented hyponatremia. B12, folate, VitD and TSH normal. Ammonia level normal. ABG without hypercapnia. RPR negative. UDS positive for barbiturates but patient is on primidone at home and felt related to that. Patient was discharged on 04/15/24 to SNF but he was agitated and abusive to the staff so they refused to accept him and sent him back to the ED. Repeat labs here were essentially normal. PT/OT re-ordered. He did well and was able to be discharged on 04/17/24. Status at Discharge Cognitive/behavioral status at discharge: stable Time Spent with Patient Time attestation: Total time spent providing and/or coordinating discharge services: 32 minutes Time spent: Greater than 30 minutes Exam Narrative: AF 96.1 121/75 98 16 99% ra Gen - NARD sitting up in chair Chest - CTA bilaterally, nml RR CV - RRR S1/S2 Abd - Soft, NT/ND, Positive BS Ext - No pedal edema Psych - Nml mood and affect Skin - Warm and dry DS: Data Data Completed and Pending Labs on day of discharge: Labs from last 24 hours 04/17/24 04/17/24 04/16/24 11:22 08:05 21:05 POC Capillary Glucose 358 H 163 H 263 H 04/16/24 16:39 POC Capillary Glucose 213 H Discharge Plan Discharge Attending physician on discharge: Eugenio Leon Discharging Clinician: Eugenio Leon Anticipated Discharge Date/Time: 04/17/24 13:11 Patient Disposition: [facility] Activity: as tolerated Diet: diabetic Discharge Instructions: Please check glucose before meals and before bed. Record for the doctor's review. Check blood pressure 1 to 2 times a day. Record for the doctor's review. Take precautions to avoid falls. Rise slowly from a lying or sitting position. Pause before standing or walking. Contact the doctor if the patient has fever, lightheadedness with standing or other worrisome symptoms. Avoid NSAIDs (ibuprofen, naproxen, Aleve). Tylenol is safe to take. Follow-up with the provider at the facility. Follow-up with Neurologist in 2-3 weeks. Please call for an appointment. Thank you for using [facility] for your health care needs. Patient Instructions: Antibiotic Form Follow-up/Referrals: Jose Erwin MD [Physician] - Call for Appointment Jason Tian MD [Primary Care Provider] - Call for Appointment Discharge Me
== END 2024-04-17 14:05 ==
LOC: ANHED 19:25 → ANH3MEDSUR 21:13
PROVIDERS: Admitting Provider General Practice; Emergency Provider Student in an Organized Health Care Education/Training Program; PCP Family Medicine; Visit Provider Internal Medicine
DX: R53.81 Other malaise (principal); R29.6 Repeated falls; E11.42 Type 2 diabetes mellitus with diabetic polyneuropathy; I11.0 Hypertensive heart disease with heart failure; I50.9 Heart failure, unspecified; Z95.5 Presence of coronary angioplasty implant and graft; Z79.82 Long term (current) use of aspirin; Z79.4 Long term (current) use of insulin; Z79.84 Long term (current) use of oral hypoglycemic drugs; Z86.73 Personal history of transient ischemic attack (TIA), and cerebral infarction without residual deficits
CPT/HCPCS: 36415; 80053; 82948; 83735; 85025; 97161; 97165; 99285; A9270; G0378; J1650; J1815

== ENCOUNTER 2024-04-29 13:11 | Observation (INO) | payer MEDICARE, SELFPAY ==
[2024-04-29] VITALS (17 sets, daily range): BP systolic 91–128; BP diastolic 66–91; PULSE 65–90; RESP 0–19; TEMP 36.1–36.8; O2SAT 82–100; BMI 29.6
--- NOTE | ~2024-04-29 | XR_ITS ---
XR chest 1V portable Ordering provider: Anabella Araujo MD History: 68 years Male with . CONFUSION . Comparison: March 23, 2024 FINDINGS: MEDIASTINUM: The cardiac silhouette is not enlarged. LUNGS: No infiltrates, effusions or pneumothorax. Bilateral interstitial changes are seen OTHER: No free air under the diaphragm. Degenerative changes of the spine. IMPRESSION: No acute cardiopulmonary pathology. Reviewed, dictated and finalized at location A.
--- NOTE | ~2024-04-29 | CT_ITS ---
CT cervical spine wo con Ordering provider: Anabella Araujo MD History: . fall . Comparison: None. Technique: CT of the cervical spine was performed without contrast. Sagittal and coronal reformatted images were also obtained and reviewed. Automated exposure control and iterative reconstruction thien hnique were employed. The dose-length product was 681.00 mGy-cm. FINDINGS: VERTEBRAE: No subluxation or acute fracture. The occipital condyles are intact. DISC SPACES: Narrowing of the disc C4-C5, C5-C6 and C6-C7. Bilateral narrowing of the foramina at the level of C5-C6 and C6-C7. PARASPINOUS SOFT TISSUES: Normal. IMPRESSION: No acute osseous abnormality cervical spine. Reviewed, dictated and finalized at location A.
--- NOTE | ~2024-04-29 | CT_ITS ---
CT brain wo con Ordering provider: Anabella Araujo MD History: 68 years Male with . Fall,confusion . Comparison: April 07, 2024 Technique: CT of the head without contrast. Radiation reduction technique utilized. DLP is 681 mGy-cm. FINDINGS: BRAIN PARENCHYMA AND CSF SPACES: Mild leukoaraiosis and diffuse cortical atrophy. Mild atheromatous d isease. Slight Dilatation of the ventricles.No midline shift, mass effect or hemorrhage. The brain p arenchyma and CSF spaces are otherwise normal. VISUALIZED PARANASAL SINUSES: Well aerated. MASTOIDS: Well aerated. BONES: The bones appear intact. SOFT TISSUES: Visualized nasopharynx is normal. Superficial soft tissues are normal. IMPRESSION: No acute intracranial findings. Reviewed, dictated and finalized at location A.
--- NOTE | 2024-04-29 13:20 | ECG_ITS ---
Test Date: 2024-04-29 13:18:07 Measurements Intervals [place] Rate: 89 P: 119 ME: 164 QRS: 7 QRSD: 93 T: 62 QT: 350 QTc: 427 Interpretive Statements SINUS RHYTHM INFERIOR INFARCT, AGE INDETERMINATE BORDERLINE T WAVE ABNORMALITY- HIGH LATERAL LEADS BASELINE ARTIFACT- I, II, III, AVR, AVL, AVF, V1-V2 ABNORMAL ECG Compared to ECG 04/07/2024 08:37:44 NO SIGNIFICANT CHANGE Electronically Signed On 04-29-2024 16:35:17 CDT by Rudy Kang D.O.
[2024-04-29 13:36] LABS: Basophils Percent Auto 0.4 % (0.2-1.2); Eosinophils Absolute Auto 0.2 K/mm3 (0-0.3); Eosinophils Percent Auto 2.1 % (0-4.4); Hemoglobin 14.4 g/dL (14.0-18.0); Immature Granulocyte Absolute 0.04 K/mm3 (0.00-0.031); Immature Granulocyte Percent A 0.4 % (0-0.5); Lymphocytes Absolute Auto 1.07 K/mm3 (0.9-3.2); Lymphocytes Percent Auto 11.8 % (18.3-44.2); Mean Corpuscular Hemoglobin 30.7 pg (26-34); Mean Corpuscular Volume 95.9 fl (80-100); Mean Platelet Volume 9.5 fl (7.4-10.4); Monocytes Absolute Auto 0.6 K/mm3 (0.1-0.6); Monocytes Percent Auto 6.1 % (2.6-8.5); Neutrophils Absolute Auto 7.2 K/mm3 (1.3-6.7); Neutrophils Percent Auto 79.2 % (45.5-73.1); Platelet Count Result 153 k/mm3 (150-375); Red Blood Count 4.69 M/mm3 (4.6-6.20); White Blood Count 9.1 K/mm3 (4.5-10.0)
[2024-04-29 13:44] LABS: Partial Thromboplastin Time 31.4 Seconds (22.3-36.8); Prothrombin Time 14.1 Seconds (11.1-14.7)
[2024-04-29 13:48] LABS: Alanine Aminotransferase 28 U/L (6-50); Albumin Level 3.8 g/dL (3.5-5.1); Alkaline Phosphatase 113 U/L (38-126); Anion Gap 10 mmol/L (4-12); Aspartate Amino Transferase 23 U/L (17-59); Bilirubin,Total 0.4 mg/dL (0.2-1.3); Blood Urea Nitrogen 28 mg/dL (9-20); Carbon Dioxide 30 mmol/L (22-30); Chloride 98 mmol/L (98-107); Estimated Glomerular Filt Rate 55; Glucose 296 mg/dL (65-110); Potassium 4.5 mmol/L (3.4-5.0); Sodium 138 mmol/L (137-145)
[2024-04-29 14:30] LABS: Appearance Urine Clear (Clear); Bilirubin Urine Negative (Negative); Blood Urine Negative (Negative); Color Urine Yellow (Yellow); Glucose Urine UA 3+ mg/dL (Negative); Ketones Urine Negative (Negative); Leukocyte Esterase Ur Negative LEU/UL (Negative); Nitrate Urine Negative (Negative); Protein Urine Negative (Negative); Specific Grav Ur 1.017 (1.001-1.035); Urobilinogen Urine 0.2 mg/dL (<2.0); pH Urine 5.5 (5.0-9.0)
[2024-04-29 14:34] LABS: Add Urine Microscopic? NO
--- NOTE | 2024-04-29 14:48 | ED.AMS ---
HPI - Altered Mental Status General Chief Complaint: Altered Mental Status Stated Complaint: dizzy, increased confusion Time Seen by Provider: 04/29/24 14:46 Source: patient, family and EMS Mode of arrival: EMS Limitations: dementia History of Present Illness HPI narrative: 68 YEARS OLD WHITE MALE CAME TO THE EMERGENCY ROOM FROM HOME WITH HIS BY AMBULANCE BECAUSE OF FALLING TWICE TODAY AFTER HAVING DIZZY SPELLS. THE IS TELLING ME THAT PATIENT BEEN HAVING DIZZY SPELLS FOR MONTHS. THIS IS HIS 3RD ED VISIT FOR THE SAME PROBLEM. PATIENT WAS ADMITTED TO [facility], THEN GOT DISCHARGE BACK HOME BECAUSE OF INSURANCE ISSUES. THE IS NOT ABLE TO MANAGE TO TAKE CARE OF HER AND WOULD LIKE HIM TO GO BACK TO REHAB. ALSO SHE IS TELLING ME SHE CANNOT TAKE HIM HOME RIGHT NOW. HISTORY OF DEMENTIA, PATIENT DENIES ANY NEW SYMPTOMS COMPARED TO YESTERDAY. Related Data Home Medications Medication Instructions Recorded Confirmed aspirin 81 mg tablet,delayed 81 mg PO DAILY 08/30/19 04/17/24 release multivitamin 1 cap PO DAILY 08/30/19 04/17/24 Allergies Allergy/AdvReac Type Severity Reaction Status Date / Time No Known Allergies Allergy Verified 04/29/24 13:33 Review of Systems Review of Systems: ROS unobtainable: Yes unobtainable due to medical condition and unobtainable due to mental status PMFSH Past Medical History Medical History Abnormal electroretinogram [ERG] Abnormal results of thyroid function studies Acute left-sided weakness Ataxia Bladder incontinence Candidiasis of skin Cerebrovascular accident (CVA) CHF (congestive heart failure) Decreased independence with activities of daily living Diabetes mellitus with hyperglycemia History of SCC (squamous cell carcinoma) of skin Hypertensive heart disease with heart failure Intermittent confusion Iron deficiency anemia Loss of balance Microalbuminuria Neuropathy Normal pressure hydrocephalus Overweight Recurrent falls Surgical History Surgical History H/O right knee surgery Hx of heart artery stent Family History Family History Father Diabetes mellitus Mother Diabetes mellitus Family history of Alzheimer's disease Sibling Multiple sclerosis Diabetes mellitus Social History Social History Smoking status: Never smoker Second hand tobacco smoke exposure: No Alcohol intake: former Substance use: never Substance use type: does not use Other substance usage details: 1-2 a month not a usual drinker Do You Feel Safe in your Home?: Yes Lack of Transportation: No Lack of Food: Never True Current Housing: I Have Housing Concerned About Future Housing: No Difficulty Paying Gas/Electric Bills: No Difficulty Paying for Meds: No Currently Unemployed: No Education: Associate Degree Difficulty w/ Childcare or Family Care: No Living arrangements: with family 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 by the patient): Male Spiritual care concerns: No Exam Narrative: GENERAL APPEARANCE: WELL-DEVELOPED, WELL-NOURISHED SKIN: NORMAL COLOR HEAD: NORMOCEPHALIC, NONTRAUMATIC EYES: CLEAR CONJUNCTIVA ENT: OROPHARYNX NORMAL, EARS NORMAL, NOSE NORMAL NECK: SUPPLE, NONTENDER CHEST AND RESPIRATORY: AIRWAY PATENT, NO RESPIRATORY DISTRESS, NO ACCESSORY MUSCLE USE HEART: REGULAR RATE/RHYTHM ABDOMEN: SOFT, NONTENDER, NO ORGANOMEGALY, QUIET BOWEL SOUNDS VASCULAR: NORMAL PERIPHERAL PULSES, NORMAL CAPILLARY REFILL. MUSCULOSKELETAL: NORMAL RANGE OF MOTION, NONTENDER BACK NEUROLOGIC: ALERT AND ORIENTED TO HIS NAME AND AGE ONLY.
[2024-04-29] MEDS: SODIUM CHLORIDE 0.9% IV 1,000 ML 999 ML IV CONT (18:37)
--- NOTE | 2024-04-29 20:33 | PM.IMHP ---
H&P: HPI History of Present Illness Date/Time: 04/29/24 20:33 Chief Complaint: Dizzy, falls Narrative: 68-year-old male with past medical history of CVA, essential hypertension, type 2 diabetes mellitus with diabetic peripheral neuropathy, ataxia concern for normal pressure hydrocephalus and multiple falls who presents to the ER with increased dizziness and number falls today. Patient had been admitted to the hospital 04/16/2024 and was discharged to [facility] facility on the but patient was violent on arrival to the fdc facility. Patient was sent back to the ER and was subsequently admitted to acute rehab. The patient was discharged from acute rehab on the . Patient is only been at home for 3 days and and was brought to the ER via EMS from home due to multiple falls. The patient is having episodes of aggression to his girlfriend at home. She does not want to place him in a assisted but wants to try to get him back into acute rehab. Patient has been having issues with dizziness and ataxia for about 2 years. Imaging studies have suggested potential for normal pressure hydrocephalus. Neurosurgery was consulted from acute rehab and neurosurgery stated statin there is no acute evaluation for neuroma pressure hydrocephalus syncope workup as outpatient. Patient has symptoms of normal pressure hydrocephalus with bladder incontinence, gait instability and confusion/impaired cognition. The patient only give me the information that he has been getting dizzy on and off. He reports the room was spinning. He denies any headaches. The patient is a poor historian. During his last hospitalization care coordination had difficulty with placement for the patient due to his history of prior felony conviction. Review of Systems Review of Systems: 12 systems were reviewed with pertinent positives and negatives per HPI. Except as documented in the HPI, all other systems were reviewed and are negative. [facility] Past Medical History Medical History (Updated 04/29/24 @ 20:57 by Siria Shane DO) Abnormal electroretinogram [ERG] Ataxia Autonomic neuropathy Bladder incontinence Cerebrovascular accident (CVA) CHF (congestive heart failure) Diabetes mellitus with hyperglycemia Diabetic peripheral neuropathy History of SCC (squamous cell carcinoma) of skin Hypertensive heart disease with heart failure Intermittent confusion Iron deficiency anemia Microalbuminuria Normal pressure hydrocephalus Overweight Recurrent falls Surgical History Surgical History H/O right knee surgery Hx of heart artery stent Family History Family History Father Diabetes mellitus Mother Diabetes mellitus Family history of Alzheimer's disease Sibling Multiple sclerosis Diabetes mellitus Social History Social History (Updated 05/01/24 @ 07:32 by Siria Shane DO) Social History: Patient lives at home with his girlfriend in [place]. He is a lifelong nonsmoker. He drinks alcohol on occasion. He does smoke marijuana on occasion as well. Code status: Full code Surrogate decision maker: Girlfriend Smoking status: Never smoker Second hand tobacco smoke exposure: No Alcohol intake: current Substance use: current Substance use type: marijuana Other substance usage details: monthly or less Do You Feel Safe in your Home?: Yes Lack of Transportation: No Lack of Food: Never True Current Housing: I Have Housing Concerned About Future Housing: No Difficulty Paying Gas/Electric Bills: No Difficulty Paying for Meds: No Currently Unemployed: No Education: High School Diploma/GED Difficulty w/ Childcare or Family Care: No Living arrangements: with family Occupation/Education: retired 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
[2024-04-29 21:11] LABS: Glucose Point of Care 241 mg/dl (65-105)
[2024-04-29] MEDS: INSULIN ASPART (*BKC) 100 UNITS/ML SUB-Q (21:14)
--- NOTE | 2024-04-29 21:36 | ADMGEN ---
This patient, Paul Hernandez, was admitted to Medical Room 341-01. Patient/family oriented to hospital policies and general routines including ID bracelet, bed and alarms, visiting hours, pain management, procedures, bathroom and other care routines, personal items, smoking policy, room service/diet, and visiting hours. Information on how to activate the Rapid Response Team has been discussed. Patient/Family are encouraged to report perceived risks to care and to ask questions if they do not understand what they are told or what they should do.
[2024-04-30 04:40] VITALS: BP 122/77; PULSE 58; RESP 18; TEMP 36.1; O2SAT 98
[2024-04-30 07:54] LABS: Glucose Point of Care 239 mg/dl (65-105)
[2024-04-30] MEDS: INSULIN ASPART (*BKC) 100 UNITS/ML SUB-Q ×3 (08:20→21:05)
[2024-04-30 11:44] LABS: Glucose Point of Care 219 mg/dl (65-105)
--- NOTE | 2024-04-30 12:33 | PC.NURSE ---
Patient refusing lovenox admin this am. Patient states he takes aspirin and doesn't think lovenox is good idea
[2024-04-30 16:50] VITALS: BP 145/93; PULSE 61; RESP 12; TEMP 36.3; O2SAT 99
[2024-04-30 17:05] LABS: Glucose Point of Care 206 mg/dl (65-105)
--- NOTE | 2024-04-30 17:11 | PC.NURSE ---
Per sig other and patient he does not Novolog given for BS above 200. Patient states I know longer tag sandy and only take oral meds for BS
--- NOTE | 2024-04-30 18:20 | PM.IMPN ---
Progress Note: A&P Assessment and Plan (1) Unable to ambulate: Code(s): R26.2 - Difficulty in walking, not elsewhere classified Status: Acute Plan Currently awaiting placement. Care coordinators ranging. Continue work with therapy. DVT prophylaxis with Lovenox 40 mg subQ q.day. Subjective Date/time seen: 04/30/24 18:20 Interval history: No acute overnight events. Patient lays in bed does not have much to provide. His significant other at the bedside reporting patient was not listening at home and was not walking with a walker. Exam Const: General: comfortable and no acute distress Eyes: Pupils: Equal, round and reactive pupils present Neck: Neck: supple Resp: Effort & Inspection: normal respiratory effort Auscultation: clear to auscultation bilaterally Cardio: Rate: regular rate Rhythm: regular rhythm GI: GI Palp: Yes Soft to palpation and No Tenderness to palpation present (GI) Extrem: General: no edema Objective Data Vital Signs Vital Signs: Vital Signs - 24 hr 04/29/24 18:31 04/29/24 19:00 04/29/24 19:45 Temperature Pulse Rate 68 69 66 Respiratory Rate 19 16 15 Blood Pressure 114/77 113/73 104/91 H Pulse Oximetry 100 96 98 Oxygen Delivery 04/29/24 21:08 04/29/24 22:32 04/30/24 04:40 Temperature 97 F L 97 F L Pulse Rate 71 67 58 L Respiratory Rate 17 16 18 Blood Pressure 124/87 128/71 122/77 Pulse Oximetry 97 100 98 Oxygen Delivery 04/30/24 11:04 04/30/24 15:00 04/30/24 16:50 Temperature 97.3 F L Pulse Rate 61 Respiratory Rate 12 Blood Pressure 145/93 H Pulse Oximetry 99 Oxygen Delivery Room Air Room Air Intake/Output Intake/Output: Intake & Output 04/27/24 04/28/24 04/29/24 04/30/24 23:59 23:59 23:59 23:59 Intake Total 1000 1310 Output Total 350 700 Balance 650 610 Meds/Results Medications: Active Medications Generic Name Dose Route Start Last Admin Trade Name Freq PRN Reason Stop Dose Admin Amlodipine Besylate 5 mg 05/01/24 09:00 Amlodipine Besylate 5 Mg Tablet PO DAILY [facility] Aspirin 81 mg 05/01/24 09:00 Aspirin 81 Mg Enteric Tablet PO DAILY [facility] Atorvastatin Calcium 40 mg 05/01/24 09:00 Atorvastatin 40 Mg Tablet PO DAILY [facility] Dextrose 12.5 gm 04/29/24 20:59 Dextrose 50% 25 Gm/50 Ml Syringe IV PUSH PRN PRN Hypoglycemia Protocol Enoxaparin Sodium 40 mg 04/30/24 09:00 04/30/24 12:33 Enoxaparin 40 Mg/0.4 Ml Syringe SUB-Q Not Given DAILY [facility] Enoxaparin Sodium 40 mg 04/30/24 18:20 Enoxaparin 40 Mg/0.4 Ml Syringe SUB-Q DAILY [facility] Furosemide 20 mg 05/01/24 09:00 Furosemide 20 Mg Tablet PO QAM [facility] Glucose 15 gm 04/29/24 20:59 Glucose Oral Gel 15 Gm Of Glucse In 37.5 Gm Tube PO PRN PRN Hypoglycemia Protocol Dextrose 1,000 mls @ 100 mls/hr 04/29/24 20:59 Dextrose 5% 1,000 Ml IVPB PRN PRN Hypoglycemia Protocol Insulin Aspart 1 - 3 units 04/29/24 21:00 04/29/24 21:14 Insulin Aspart (*Bkc) 100 Units/Ml SUB-Q 1 units HS [facility] Administration Protocol Insulin Aspart 3 - 6 units 04/30/24 08:00 04/30/24 17:11 Insulin Aspart (*Bkc) 100 Units/Ml SUB-Q Not Given TIDWM [facility] Protocol Lisinopril 20 mg 05/01/24 09:00 Lisinopril 20 Mg Tablet PO DAILY [facility] Meclizine HCl 25 mg 04/30/24 18:17 Meclizine Hcl 25 Mg Tablet PO BID PRN dizziness Mirabegron 50 mg 05/01/24 09:00 Mirabegron 50 Mg Er Tablet PO DAILY [facility] Multivitamins Therapeutic tablet 05/01/24 09:00 Multivitamins Therapeutic Tab (*Bkc) PO DAILY [facility] Pregabalin 100 mg 05/01/24 09:00 Pregabalin (*Crx) 50 Mg Capsule PO DAILY [facility] Primidone 100 mg 05/01/24 09:00 Primidone 50 Mg Tablet PO TID [facility] Radiology Results: ITS Impressions Head CT 04/29/24 15:11 IMPRESSION: No acute intracranial findings. Cervical Spine CT 04/29/24
--- NOTE | 2024-04-30 18:42 | PC.NURSE ---
Door Machine Operator educated patient for a second time about lovenox and compliance. Patient still refuses.
[2024-04-30 20:28] VITALS: BP 153/84; PULSE 70; RESP 18; TEMP 36.4; O2SAT 98
[2024-04-30 21:49] LABS: Glucose Point of Care 262 mg/dl (65-105)
[2024-05-01 04:16] VITALS: BP 142/80; PULSE 70; RESP 20; TEMP 36.4; O2SAT 99
[2024-05-01 07:54] LABS: Glucose Point of Care 197 mg/dl (65-105)
[2024-05-01 08:11] VITALS: PULSE 67; RESP 20; O2SAT 96
[2024-05-01 09:00] VITALS: O2SAT 97
[2024-05-01] MEDS: LORazepam (*CRX) 0.5 MG TABLET PO (09:02)
[2024-05-01] MEDS: PREGABALIN (*CRX) 50 MG CAPSULE 100 MG PO (09:02)
[2024-05-01] MEDS: ATORVASTATIN 40 MG TABLET PO (09:02)
[2024-05-01] MEDS: MULTIVITAMINS THERAPEUTIC TAB (*BKC) 1 TABLET PO (09:02)
[2024-05-01] MEDS: lisinopriL 20 MG TABLET PO (09:03)
[2024-05-01] MEDS: MIRABEGRON 50 MG ER TABLET PO (09:03)
[2024-05-01] MEDS: FUROSEMIDE 20 MG TABLET PO (09:03)
[2024-05-01] MEDS: ASPIRIN 81 MG ENTERIC TABLET PO (09:03)
[2024-05-01] MEDS: amLODIPine BESYLATE 5 MG TABLET PO (09:03)
[2024-05-01] MEDS: PRIMIDONE 50 MG TABLET 100 MG PO ×3 (09:04→17:33)
[2024-05-01 12:02] LABS: Glucose Point of Care 328 mg/dl (65-105)
[2024-05-01] MEDS: INSULIN ASPART (*BKC) 100 UNITS/ML SUB-Q ×3 (12:59→20:04)
[2024-05-01 14:00] VITALS: BP 127/89; PULSE 87; RESP 20; TEMP 36.3; O2SAT 97
--- NOTE | 2024-05-01 15:01 | PM.IMPN ---
Progress Note: A&P Assessment and Plan (1) Unable to ambulate: Code(s): R26.2 - Difficulty in walking, not elsewhere classified Status: Acute (2) Neurocognitive disorder: Code(s): R41.9 - Unspecified symptoms and signs involving cognitive functions and awareness Status: Acute Plan Educated the patient on the risk of getting up without assistance. Continue therapy. Advise nursing staff patient becomes who more physically cantankerous or a danger to himself or others to provide physical restraints. Pharmacological restraints indicated is next at withheld all p.r.n.. EKG on 04/29/2024 demonstrates a QTC of 427. Discontinue Mirabegron due to its synergistic anticholinergic affect with Seroquel. Start Seroquel 20 5 mg p.o. b.i.d.. Continue to monitor EKG for QTC prolongation until steady state has been achieved. The patient has a unspecified neurocognitive disorder. He should have follow-up with neuropsychiatry in the outpatient setting. He has ataxia and urinary incontinence and an outpatient workup for normal pressure hydrocephalus is pending. Full code. Lovenox. Disposition pending to SNF for permanent placement due to the patient's inability to dissipate with using the walker at home and there for being self. Family believes they cannot take care of him. Subjective Date/time seen: 05/01/24 15:01 Interval history: In the afternoon the patient began coming verbally cantankerous with the staff. He is also not following orders in getting up by himself. He is having near falls. This is the patient's character on multiple prior admissions as well. Educated the patient if he continues to get up without the staff's help he may fall and have trauma and even a brain bleed. Review of Systems Review of Systems: All systems reviewed & are unremarkable except as noted in HPI and below (Subjective) Exam Const: General: comfortable and no acute distress Eyes: Pupils: Equal, round and reactive pupils present Neck: Neck: supple Resp: Effort & Inspection: normal respiratory effort Auscultation: clear to auscultation bilaterally Cardio: Rate: regular rate Rhythm: regular rhythm GI: GI Palp: Yes Soft to palpation and No Tenderness to palpation present (GI) Extrem: General: no edema Objective Data Vital Signs Vital Signs: Vital Signs - 24 hr 04/30/24 16:50 04/30/24 20:28 04/30/24 20:00 Temperature 97.3 F L 97.6 F Pulse Rate 61 70 Respiratory Rate 12 18 Blood Pressure 145/93 H 153/84 H Pulse Oximetry 99 98 Oxygen Delivery Room Air Fraction of Inspired Oxygen 05/01/24 04:16 05/01/24 08:11 Temperature 97.6 F Pulse Rate 70 67 Respiratory Rate 20 20 Blood Pressure 142/80 H Pulse Oximetry 99 96 Oxygen Delivery Room Air Fraction of Inspired Oxygen 21 Intake/Output Intake/Output: Intake & Output 04/28/24 04/29/24 04/30/24 05/01/24 23:59 23:59 23:59 23:59 Intake Total 1000 1310 930 Output Total 681 374 2121 Balance 650 610 -1020 Meds/Results Medications: Active Medications Generic Name Dose Route Start Last Admin Trade Name Freq PRN Reason Stop Dose Admin Amlodipine Besylate 5 mg 05/01/24 09:00 05/01/24 09:03 Amlodipine Besylate 5 Mg Tablet PO 5 mg DAILY [facility] Administration Aspirin 81 mg 05/01/24 09:00 05/01/24 09:03 Aspirin 81 Mg Enteric Tablet PO 81 mg DAILY [facility] Administration Atorvastatin Calcium 40 mg 05/01/24 09:00 05/01/24 09:02 Atorvastatin 40 Mg Tablet PO 40 mg DAILY [facility] Administration Dextrose 12.5 gm 04/29/24 20:59 Dextrose 50% 25 Gm/50 Ml Syringe IV PUSH PRN PRN Hypoglycemia Protocol Enoxaparin Sodium 40 mg 04/30/24 18:20 05/01/24 09:09 Enoxaparin 40 Mg/0.4 Ml Syringe SUB-Q Not Given DAILY [facility] Furosemide 20 mg 05/01/24 09:00 05/01/24 09:03 Furosemide 20 Mg Tablet PO 20 mg QAM [facility] Administration Glucose 15 gm 04/29/24 20:59 Glucose Oral Gel 15 Gm Of G
[2024-05-01 17:05] LABS: Glucose Point of Care 285 mg/dl (65-105)
[2024-05-01] MEDS: QUEtiapine FUMARATE 25 MG TABLET PO (17:33)
[2024-05-01 19:51] VITALS: BP 124/85; PULSE 95; RESP 12; TEMP 36.7; O2SAT 98
[2024-05-01 20:19] LABS: Glucose Point of Care 289 mg/dl (65-105)
[2024-05-02 06:00] VITALS: BP 110/79; PULSE 70; RESP 15; TEMP 36.8; O2SAT 97
[2024-05-02 08:21] LABS: Glucose Point of Care 300 mg/dl (65-105)
[2024-05-02 08:50] VITALS: O2SAT 98
[2024-05-02] MEDS: ATORVASTATIN 40 MG TABLET PO (08:50)
[2024-05-02] MEDS: amLODIPine BESYLATE 5 MG TABLET PO (08:50)
[2024-05-02] MEDS: ASPIRIN 81 MG ENTERIC TABLET PO (08:50)
[2024-05-02] MEDS: MULTIVITAMINS THERAPEUTIC TAB (*BKC) 1 TABLET PO (08:50)
[2024-05-02] MEDS: QUEtiapine FUMARATE 25 MG TABLET PO ×2 (08:50→21:32)
[2024-05-02] MEDS: lisinopriL 20 MG TABLET PO (08:51)
[2024-05-02] MEDS: PRIMIDONE 50 MG TABLET 100 MG PO ×3 (08:51→17:48)
[2024-05-02] MEDS: FUROSEMIDE 20 MG TABLET PO (08:51)
[2024-05-02] MEDS: PREGABALIN (*CRX) 50 MG CAPSULE 100 MG PO (08:51)
[2024-05-02] MEDS: INSULIN ASPART (*BKC) 100 UNITS/ML SUB-Q ×4 (08:53→21:31)
[2024-05-02 12:33] LABS: Glucose Point of Care 346 mg/dl (65-105)
[2024-05-02 14:00] VITALS: BP 125/90; PULSE 84; RESP 18; TEMP 36.3; O2SAT 98
--- NOTE | 2024-05-02 15:35 | PM.IMPN ---
Progress Note: A&P Assessment and Plan (1) Unable to ambulate: Code(s): R26.2 - Difficulty in walking, not elsewhere classified Status: Acute (2) Neurocognitive disorder: Code(s): R41.9 - Unspecified symptoms and signs involving cognitive functions and awareness Status: Acute Plan Educated the patient on the risk of getting up without assistance. Continue therapy. Advise nursing staff patient becomes who more physically cantankerous or a danger to himself or others to provide physical restraints. Pharmacological restraints indicated is next at withheld all p.r.n.. EKG on 04/29/2024 demonstrates a QTC of 427. Discontinue Mirabegron due to its synergistic anticholinergic affect with Seroquel. Start Seroquel 20 5 mg p.o. b.i.d.. Continue to monitor EKG for QTC prolongation until steady state has been achieved. The patient has a unspecified neurocognitive disorder. He should have follow-up with neuropsychiatry in the outpatient setting. He has ataxia and urinary incontinence and an outpatient workup for normal pressure hydrocephalus is pending. Full code. Lovenox. Disposition pending to SNF for permanent placement due to the patient's inability to dissipate with using the walker at home and there for being self. Family believes they cannot take care of him. 05/02/2024 update: The patient's aggressive behavior has improved. Continue Seroquel 25 mg p.o. b.i.d.. Check EKG in the morning to assess QT interval. Disposition pending with care coordination for placement. Subjective Date/time seen: 05/02/24 15:35 Interval history: No major acute overnight events. Patient still verbally cantankerous with the staff although improved. Review of Systems Review of Systems: All systems reviewed & are unremarkable except as noted in HPI and below (Subjective) Exam Const: General: comfortable and no acute distress Eyes: Pupils: Equal, round and reactive pupils present Neck: Neck: supple Resp: Effort & Inspection: normal respiratory effort Auscultation: clear to auscultation bilaterally Cardio: Rate: regular rate Rhythm: regular rhythm GI: GI Palp: Yes Soft to palpation and No Tenderness to palpation present (GI) Extrem: General: no edema Objective Data Vital Signs Vital Signs: Vital Signs - 24 hr 05/01/24 19:51 05/02/24 06:00 05/02/24 14:00 Temperature 98.1 F 98.2 F 97.3 F L Pulse Rate 95 70 84 Respiratory Rate 12 15 18 Blood Pressure 124/85 110/79 125/90 Pulse Oximetry 98 97 98 Intake/Output Intake/Output: Intake & Output 04/29/24 04/30/24 05/01/24 05/02/24 23:59 23:59 23:59 23:59 Intake Total 1000 1310 2150 1140 Output Total 308 985 6661 600 Balance 650 610 -500 540 Meds/Results Medications: Active Medications Generic Name Dose Route Start Last Admin Trade Name Freq PRN Reason Stop Dose Admin Amlodipine Besylate 5 mg 05/01/24 09:00 05/02/24 08:50 Amlodipine Besylate 5 Mg Tablet PO 5 mg DAILY JOLIE Administration Aspirin 81 mg 05/01/24 09:00 05/02/24 08:50 Aspirin 81 Mg Enteric Tablet PO 81 mg DAILY JOLIE Administration Atorvastatin Calcium 40 mg 05/01/24 09:00 05/02/24 08:50 Atorvastatin 40 Mg Tablet PO 40 mg DAILY JOLIE Administration Dextrose 12.5 gm 04/29/24 20:59 Dextrose 50% 25 Gm/50 Ml Syringe IV PUSH PRN PRN Hypoglycemia Protocol Enoxaparin Sodium 40 mg 04/30/24 18:20 05/02/24 09:05 Enoxaparin 40 Mg/0.4 Ml Syringe SUB-Q Not Given DAILY JOLIE Furosemide 20 mg 05/01/24 09:00 05/02/24 08:51 Furosemide 20 Mg Tablet PO 20 mg QAM JOLIE Administration Glucose 15 gm 04/29/24 20:59 Glucose Oral Gel 15 Gm Of Glucse In 37.5 Gm Tube PO PRN PRN Hypoglycemia Protocol Dextrose 1,000 mls @ 100 mls/hr 04/29/24 20:59 Dextrose 5% 1,000 Ml IVPB PRN PRN Hypoglycemia Protocol Insulin Aspart 1 - 3 units 04/29/24 21:00 05/01/24 20:04 Insulin Aspart (*Bk)
[2024-05-02 16:52] LABS: Glucose Point of Care 266 mg/dl (65-105)
[2024-05-02 21:01] LABS: Glucose Point of Care 315 mg/dl (65-105)
[2024-05-02 22:00] VITALS: BP 144/89; PULSE 72; RESP 18; TEMP 36.7; O2SAT 97
--- NOTE | 2024-05-03 05:00 | ECG_ITS ---
Test Date: 2024-05-03 12:42:46 Measurements Intervals [place] Rate: 75 P: 32 ND: 163 QRS: 4 QRSD: 92 T: 72 QT: 389 QTc: 437 Interpretive Statements SINUS RHYTHM DELAYED PRECORDIAL R/S TRANSITION INFERIOR INFARCT, AGE INDETERMINATE BORDERLINE ST-T WAVE ABNORMALITY- HIGH LATERAL LEADS BASELINE ARTIFACT- I, II, III, AVR, AVL ABNORMAL ECG Compared to ECG 04/29/2024 13:18:07 No significant changes Electronically Signed On 05-03-2024 13:08:08 CDT by Ruyd Kang D.O.
[2024-05-03 06:00] VITALS: BP 115/83; PULSE 69; RESP 18; TEMP 36.9; O2SAT 98
[2024-05-03 08:23] LABS: Glucose Point of Care 248 mg/dl (65-105)
[2024-05-03] MEDS: INSULIN ASPART (*BKC) 100 UNITS/ML SUB-Q ×2 (09:30→13:04)
[2024-05-03] MEDS: MULTIVITAMINS THERAPEUTIC TAB (*BKC) 1 TABLET PO (09:33)
[2024-05-03] MEDS: amLODIPine BESYLATE 5 MG TABLET PO (09:33)
[2024-05-03] MEDS: PRIMIDONE 50 MG TABLET 100 MG PO ×2 (09:33→13:04)
[2024-05-03] MEDS: lisinopriL 20 MG TABLET PO (09:33)
[2024-05-03] MEDS: QUEtiapine FUMARATE 25 MG TABLET PO (09:33)
[2024-05-03] MEDS: FUROSEMIDE 20 MG TABLET PO (09:33)
[2024-05-03] MEDS: PREGABALIN (*CRX) 50 MG CAPSULE 100 MG PO (09:33)
[2024-05-03] MEDS: ASPIRIN 81 MG ENTERIC TABLET PO (09:33)
[2024-05-03] MEDS: ATORVASTATIN 40 MG TABLET PO (09:46)
[2024-05-03 12:03] LABS: Glucose Point of Care 286 mg/dl (65-105)
--- NOTE | 2024-05-03 13:27 | PM.IMPN ---
Progress Note: A&P Assessment and Plan (1) Unable to ambulate: Code(s): R26.2 - Difficulty in walking, not elsewhere classified Status: Acute (2) Neurocognitive disorder: Code(s): R41.9 - Unspecified symptoms and signs involving cognitive functions and awareness Status: Acute Plan Educated the patient on the risk of getting up without assistance. Continue therapy. Advise nursing staff patient becomes who more physically cantankerous or a danger to himself or others to provide physical restraints. Pharmacological restraints indicated is next at withheld all p.r.n.. EKG on 04/29/2024 demonstrates a QTC of 427. Discontinue Mirabegron due to its synergistic anticholinergic affect with Seroquel. Start Seroquel 20 5 mg p.o. b.i.d.. Continue to monitor EKG for QTC prolongation until steady state has been achieved. The patient has a unspecified neurocognitive disorder. He should have follow-up with neuropsychiatry in the outpatient setting. He has ataxia and urinary incontinence and an outpatient workup for normal pressure hydrocephalus is pending. Full code. Lovenox. Disposition pending to SNF for permanent placement due to the patient's inability to dissipate with using the walker at home and there for being self. Family believes they cannot take care of him. 05/02/2024 update: The patient's aggressive behavior has improved. Continue Seroquel 25 mg p.o. b.i.d.. Check EKG in the morning to assess QT interval. Disposition pending with care coordination for placement. 05/03: QTC is 437 now. Continue Seroquel. Care coordinators arranging for placement. Subjective Date/time seen: 05/03/24 13:27 Interval history: No major acuteOvernight events Review of Systems Review of Systems: All systems reviewed & are unremarkable except as noted in HPI and below (Subjective) Exam Const: General: comfortable and no acute distress Eyes: Pupils: Equal, round and reactive pupils present Neck: Neck: supple Resp: Effort & Inspection: normal respiratory effort Auscultation: clear to auscultation bilaterally Cardio: Rate: regular rate Rhythm: regular rhythm GI: GI Palp: Yes Soft to palpation and No Tenderness to palpation present (GI) Extrem: General: no edema Objective Data Vital Signs Vital Signs: Vital Signs - 24 hr 05/02/24 14:00 05/02/24 22:00 05/03/24 06:00 Temperature 97.3 F L 98.1 F 98.4 F Pulse Rate 84 72 69 Respiratory Rate 18 18 18 Blood Pressure 125/90 144/89 H 115/83 Pulse Oximetry 98 97 98 Intake/Output Intake/Output: Intake & Output 04/30/24 05/01/24 05/02/24 05/03/24 23:59 23:59 23:59 23:59 Intake Total 1310 2150 1905 360 Output Total 700 2650 1250 300 Balance 610 -500 655 60 Meds/Results Medications: Active Medications Generic Name Dose Route Start Last Admin Trade Name Freq PRN Reason Stop Dose Admin Amlodipine Besylate 5 mg 05/01/24 09:00 05/03/24 09:33 Amlodipine Besylate 5 Mg Tablet PO 5 mg DAILY JOLIE Administration Aspirin 81 mg 05/01/24 09:00 05/03/24 09:33 Aspirin 81 Mg Enteric Tablet PO 81 mg DAILY JOLIE Administration Atorvastatin Calcium 40 mg 05/01/24 09:00 05/03/24 09:46 Atorvastatin 40 Mg Tablet PO 40 mg DAILY JOLIE Administration Dextrose 12.5 gm 04/29/24 20:59 Dextrose 50% 25 Gm/50 Ml Syringe IV PUSH PRN PRN Hypoglycemia Protocol Enoxaparin Sodium 40 mg 04/30/24 18:20 05/03/24 09:35 Enoxaparin 40 Mg/0.4 Ml Syringe SUB-Q Not Given DAILY JOLIE Furosemide 20 mg 05/01/24 09:00 05/03/24 09:33 Furosemide 20 Mg Tablet PO 20 mg QAM JOLIE Administration Glucose 15 gm 04/29/24 20:59 Glucose Oral Gel 15 Gm Of Glucse In 37.5 Gm Tube PO PRN PRN Hypoglycemia Protocol Dextrose 1,000 mls @ 100 mls/hr 04/29/24 20:59 Dextrose 5% 1,000 Ml IVPB PRN PRN Hypoglycemia Protocol Insulin Aspart 1 - 3 units 04/29/24 21:00 05/02/24 21:31 Insu
--- NOTE | 2024-05-03 16:05 | PM.DS ---
DS: Admitting Diagnosis Discharge Date May 03, 2024 Admitting Diagnosis Inability to ambulate DS: Discharge Diagnosis Discharge Diagnosis (1) Neurocognitive disorder: Code(s): R41.9 - Unspecified symptoms and signs involving cognitive functions and awareness Status: Acute DS: Summary Hospital Course Hospital Course: This is a very physically and verbally cantankerous male. He has multiple hospital admissions for placement for rehab. On the last rehab placement the patient was discharged. Then, at home he was not using a walker and his girlfriend feared he would fall so they brought him in. They wanted him to be placed in a permanent facility. This coordination was ongoing. On the day of discharge on 05/03/2024 the patient became verbally and physically aggressive, head butting his girlfriend. He was very cantankerous with the nursing staff. At this time, security was called to his room in the patient calm down. The family was contacted and discussion also held with his girlfriend who he lives with. They wanted to take him back home. The patient was adamant he did not want to stay either. They were all coherent and able to verbalize in their own words the patient's state of imbalance and his need for therapy. They understood without proper therapy and especially if the patient is noncompliant with therapy recommendations including using a walker that he could fall and have major trauma and even or chronic morbidity. Understood and agreed. Patient discharged on Seroquel 25 mg p.o. b.i.d.. Advised to follow with PCP and monitor QTC interval as well. Again, they did not want to stay to monitor the side effects. Discontinue mirabegron. For his urinary incontinence, neurocognitive decline and imbalance he is again advised to follow with Neurology for further assessment and treatment if needed. They understood and agreed. Patient was discharged in stable condition to home on 05/03/2024. Time Spent with Patient Time attestation: Total time spent providing and/or coordinating discharge services: Exam Const: General: comfortable and no acute distress Eyes: Pupils: Equal, round and reactive pupils present Neck: Neck: supple Resp: Effort & Inspection: normal respiratory effort Auscultation: clear to auscultation bilaterally Cardio: Rate: regular rate Rhythm: regular rhythm GI: GI Palp: Yes Soft to palpation and No Tenderness to palpation present (GI) Extrem: General: no edema DS: Data Data Completed and Pending Labs on day of discharge: Labs from last 24 hours 05/03/24 05/03/24 05/02/24 11:59 08:19 19:42 POC Capillary Glucose 286 H 248 H 315 H 05/02/24 16:47 POC Capillary Glucose 266 H Discharge Plan Discharge Attending physician on discharge: Patricia Francis Consulting providers: Siria Shane; Rudy Kang; Fabian Morales Discharging Clinician: Patricia Francis Patient Disposition: Home Health Service Activity: february shower Diet: as tolerated Discharge Instructions: Per Care Coordination: [facility] ([phone]) will call to set up initial visit. Stand Alone Forms: General Discharge Information Follow-up/Referrals: Jason Tian MD [Primary Care Provider] - Call for Appointment (follow up within a week, follow up with neurology) Discharge Medications: New quetiapine [Seroquel] 25 mg Tablet 25 mg PO Q12HR Qty: 60 0RF Continued multivitamin Capsule 1 cap PO DAILY aspirin 81 mg tablet,delayed release (DR/EC) 81 mg PO DAILY (DME) syringe (disposable) [Easy [place] Luer Lock Syringe] 3 mL syringe See Rx Instructions .ROUTE .MEDSUPPLY Qty: 25 3RF Rx Instructions: As directed (DME) safety needles 29 gauge x 1/2 needle See Rx Instructions .Route Qty: 50 0RF Rx Instructions: As directed for testosterone (DME) Blood Glucose Test Strip See Rx Instructions .MEDSUPPLY Qty:
--- NOTE | 2024-05-03 16:37 | PC.NURSE ---
Patients girlfrienfranklin Weaver arrived on unit with a bag of clothing and stated she was ready to take patient home. She explained he did not want to stay at the hospital any longer and was mad at her for not taking him home. Hospitalist was notified that patient planned discharge. Per hospitalist, son and POA had to to be informed and make final decision for patient to be able to go home instead of rehab. This nurse spoke to Dominic Hernandez, son, at 1400 to inform him of patients wishes to discharge to home instead of rehab. Son Dominic verbally agreed to discharge Paul Hernandez to home. When patient was informed he would be discharged pending physicians approval and final advice, he became irate and aggressive. He started swearing, got up without assistance and threatened to leave. Girlfriend Meg tried to redirect him and ensure he did not fall and he head butted her in response. This nurse stepped in and attempted patient to cooperate. Patient then threatened this nurse and stated might be worth going to [facility] for . Security was called and assisted keeping patient and staff safe. Hospitalist spoke to patient and family to explain possible ramifications of discharge to home instead of rehab. Patient verbalized understanding and was discharged at 1620.
== END 2024-05-03 16:20 | disposition home health service (06) ==
LOC: ANHED 19:17 → ANH3MED 21:10 → ANH2MED 05-04 07:24 → ANH3MED 05-04 07:24
PROVIDERS: Admitting Provider Internal Medicine; Emergency Provider Emergency Medicine; PCP Family Medicine; Visit Provider General Practice
DX: R41.9 Unspecified symptoms and signs involving cognitive functions and awareness (principal); E11.65 Type 2 diabetes mellitus with hyperglycemia; R29.6 Repeated falls; R42 Dizziness and giddiness; R32 Unspecified urinary incontinence; G90.9 Disorder of the autonomic nervous system, unspecified; F03.90 Unspecified dementia, unspecified severity, without behavioral disturbance, psychotic disturbance, mood disturbance, and anxiety; I11.0 Hypertensive heart disease with heart failure; I50.9 Heart failure, unspecified; D50.9 Iron deficiency anemia, unspecified; E11.42 Type 2 diabetes mellitus with diabetic polyneuropathy; Z95.5 Presence of coronary angioplasty implant and graft; Z79.82 Long term (current) use of aspirin; Z79.84 Long term (current) use of oral hypoglycemic drugs; F12.90 Cannabis use, unspecified, uncomplicated; Z86.73 Personal history of transient ischemic attack (TIA), and cerebral infarction without residual deficits
CPT/HCPCS: 36415; 70450; 71045; 72125; 80053; 81003; 82948; 85025; 85610; 85730; 93005; 96360; 97110; 97116; 97161; 97166; 97530; 97535; 99285; A9270; G0378; J1650; J1815; J7030

== ENCOUNTER 2024-05-17 04:09 | Emergency (ER) | payer MEDICARE, SELFPAY ==
--- NOTE | ~2024-05-17 | XR_ITS ---
Right Knee Technique: AP, lateral, and sunrise views were obtained. Clinical History: Injury Findings: No fracture or dislocation is seen. Right knee arthroplasty in place. No hardware complicat ion is evident. Soft tissues are unremarkable. No joint effusion is seen. Impression: No acute abnormality seen. Right knee arthroplasty in place. Reviewed, dictated and finalized at location . Impression: No acute abnormality seen. Right knee arthroplasty in place.
--- NOTE | ~2024-05-17 | CT_ITS ---
CT head without contrast Indication: Status post fall COMPARISON: 04/29/2024 Technique: Serial scans were obtained through the brain without the administration of contrast. Dose reduction technique was used on this scan by utilizing automated exposure control and iterative recon struction technique. The dose-length product (DLP) was 681.00 mGy-cm. Findings: There is no evidence of intracranial hemorrhage, mass lesion, or acute infarct. The ventri cles and subarachnoid spaces are dilated, consistent with moderate atrophy. Low attenuation regions are seen within the periventricular white matter bilaterally, likely representing changes from chroni c microvascular ischemic disease. There is no evidence of edema, mass effect or midline shift. The visualized paranasal sinuses and mastoid air cells are clear. Impression: No intracranial hemorrhage, mass, or acute infarct. Atrophy and chronic white matter changes, as above. Reviewed, dictated and finalized at location . Impression: No intracranial hemorrhage, mass, or acute infarct. Atrophy and chronic white matter changes, as above.
[2024-05-17 04:11] VITALS: BP 148/94; PULSE 77; RESP 14; TEMP 36.8; O2SAT 100
[2024-05-17] MEDS: ACETAMINOPHEN 325 MG TABLET 650 MG PO (05:50)
--- NOTE | 2024-05-17 07:29 | ED.FALL ---
HPI - Fall General Chief Complaint: Fall Stated Complaint: GLF; SYNCOPE Time Seen by Provider: 05/17/24 06:53 History of Present Illness HPI Narrative: 68-year-old male presenting to the emergency department for evaluation after having a ground level fall. Patient states last thing he remembers he was lying on the couch watching TV and then this morning he was found lying on the floor. Patient was complaining of some right-sided knee pain, patient does have an abrasion to his right eyebrow and right knee. Patient denies any recent illnesses cough cold fevers. Patient denies any other pain or injury. Patient is already requesting discharge to home. Patient states he does live at home and does have family to help take care of him. Related Data Home Medications Medication Instructions Recorded Confirmed aspirin 81 mg tablet,delayed 81 mg PO DAILY 08/30/19 04/29/24 release multivitamin 1 cap PO DAILY 08/30/19 04/29/24 Allergies Allergy/AdvReac Type Severity Reaction Status Date / Time No Known Allergies Allergy Verified 05/13/24 15:09 Review of Systems Review of Systems: All systems reviewed & are unremarkable except as noted in HPI and below PMFSH Past Medical History Medical History (Updated 05/17/24 @ 08:21 by Lewis Delgado MD) Abnormal electroretinogram [ERG] Ataxia Autonomic neuropathy Bladder incontinence Cerebrovascular accident (CVA) CHF (congestive heart failure) Delusional disorder Diabetes mellitus with hyperglycemia Diabetic peripheral neuropathy History of SCC (squamous cell carcinoma) of skin Hypertensive heart disease with heart failure Intermittent confusion Iron deficiency anemia Microalbuminuria Normal pressure hydrocephalus Overweight Recurrent falls Surgical History Surgical History H/O right knee surgery Hx of heart artery stent Family History Family History Father Diabetes mellitus Mother Diabetes mellitus Family history of Alzheimer's disease Sibling Multiple sclerosis Diabetes mellitus Social History Social History Social History: Patient lives at home with his girlfriend in [facility]. He is a lifelong nonsmoker. He drinks alcohol on occasion. He does smoke marijuana on occasion as well. Code status: Full code Surrogate decision maker: Girlfriend Smoking status: Never smoker Second hand tobacco smoke exposure: No Alcohol intake: current Substance use: current Substance use type: marijuana Other substance usage details: monthly or less Do You Feel Safe in your Home?: Yes Lack of Transportation: No Lack of Food: Never True Current Housing: I Have Housing Concerned About Future Housing: No Difficulty Paying Gas/Electric Bills: No Difficulty Paying for Meds: No Currently Unemployed: No Education: High School Diploma/GED Difficulty w/ Childcare or Family Care: No Living arrangements: with family Occupation/Education: retired 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 Gender identity (if verbalized by the patient): Male Spiritual care concerns: No Exam Narrative: APPEARANCE: Well appearing, no pain, no distress, well-nourished. HEAD: normocephalic, atraumatic. EYES: PERRLA/EOMI, conjunctivae clear. NOSE: Normal no drainage EARS:TMS clear with good light reflex. THROAT: Pharynx clear, no exudate. NECK: Supple. No adenopathy, no masses. RESPIRATORY: Airway patent, respirations nonlabored. Clear to auscultation bilaterally, no rales, rhonchi, wheezing. CARDIOVASCULAR: Regular rate and rhythm without murmurs rubs or gallops. ABDOMINAL: Soft, nontender, nondistended, normal bowel sounds MUSCULOSKELETAL: Moves all extremities. Strength/ROM intact, No edema, No calf tenderness.
[2024-05-17 07:39] VITALS: BP 148/86; PULSE 79; RESP 16; O2SAT 97
--- NOTE | 2024-05-17 08:06 | PC.NURSE ---
regular diet breakfast tray ordered
[2024-05-17 08:35] VITALS: BP 145/86; PULSE 82; RESP 16; O2SAT 99
== END 2024-05-17 09:26 | disposition home or self-care (01) ==
PROVIDERS: Emergency Provider Emergency Medicine; PCP Family Medicine
DX: S09.90XA Unspecified injury of head, initial encounter (principal); S80.01XA Contusion of right knee, initial encounter; I11.0 Hypertensive heart disease with heart failure; I50.9 Heart failure, unspecified; E11.9 Type 2 diabetes mellitus without complications; Z86.73 Personal history of transient ischemic attack (TIA), and cerebral infarction without residual deficits; Z85.828 Personal history of other malignant neoplasm of skin; D64.9 Anemia, unspecified; Z79.82 Long term (current) use of aspirin; W19.XXXA Unspecified fall, initial encounter
CPT/HCPCS: 70450; 73562; 99284; A9270

== ENCOUNTER 2024-08-19 13:15 | Outpatient (RCR) | payer MEDICARE, SELFPAY ==
--- NOTE | 2024-06-03 12:04 | OPREHPOC ---
Outpatient Therapy Plan of Care This is a Multidisciplinary Plan of Care that may contain components documented by all disciplines (PT, OT, and ST.) PT Problem 1 PT Problem #1 Knowledge Deficit PT Goal 1 Goal / Goal Update *indep with HEP * pt use correct technique with sit/stand transfer Target Visit 10 PT Problem 2 PT Problem #2 Impaired Strength PT Goal 1 Goal / Goal Update increase R and L LE strength, to improve transfer and gait skills: 1* supine strengthening exercises x 20 reps 2* sit/stand transfer indep 3* with walking- step length pass other foot Target Visit 10 PT Problem 3 PT Problem #3 Impaired Functional Mobility PT Goal 1 Goal / Goal Update 1* supine to sit indep 2* pt ambulate with wheeled walker, 75' indep on level surface 3* TUG with wheeled walker 60 seconds 4* pt and Meg report NO falls Target Visit 10
--- NOTE | 2024-06-03 12:04 | PTOPEVAL1 ---
Assessment and note entered by Dianne Luna, PT Evaluation Information Assessment Status Evaluation ICD-10 Condition Codes (PT) Difficulty Walking R26.2,R26.9,Weakness R53.1 Onset March 2024 Subjective Information gradual weakness; hospitalized in April-- discharged May 03; multiple falls and to ER May 5: R knee xray negative and CT head negative Reported Pain Level Pain Score 7: Self Report L ribs Assessment PT Clinical Summary Paul has the diagnosis of decreased gait/mobility. He has had multiple falls and hospitalizations due to weakness, falls. He has refused to go to in pt rehab or NH facility. He is at home with Meg, significant other, as caregiver. At home, he is walking short distances in home with wheeled walker and her standing by. Meg is doing all home tasks and assisting him with bathing, dressing and mobility. With the evaluation: he has weakness of both legs L weaker than R; TUG score of 100 seconds; poor transfer technique with sit/stand and requires CGA to min assist; supine to sit transfer required mod assist with his trunk; Tinetti gait/balance score of 7/28=high risk for falls; gait tolerance ~ 30' with wheeled walker and poor pattern, is not safe with standing to sitting down. Skilled PT services are indicated to increase LE strength, gait and balance skills, to improve mobility and decrease risk for more falls, with education for HEP and safety with mobility. Plan of Care Interventions Gait Training,Neuro Re-education,Patient/Caregiver Educati,Therapeutic Activities,Therapeutic Exercise PT Services Indicated Yes Treatment Frequency and 2x/wk for 10 visits Duration These treatments will address the objective and functional deficits as defined above. The patient will be advanced safely and appropriately in order for the patient to progress towards his/her prior level of function. Additional exercises will be introduced and as well as a comprehensive home exercise program upon discharge, if needed, ?to ensure carryover of functional gains achieved in the clinic. This treatment plan has been reviewed and agreement upon by the patient.
--- NOTE | 2024-06-04 14:14 | PCPTNOTE ---
Today in waiting room, pt's significant other - Meg was upset with pt--yelling at him, need to get that walker right in front of you; you need to walk and not use a wheelchair; I cannot handle you in a wheelchair; you are getting too much for me to take care of and you need to go somewhere; you need some more medicine to help your mind. Paul told her shut up and leave me alone. Discussed with them that they need to talk with the dr and other family, if she is not able to take care of him anymore. She stated he had the neurologist gerri Frausto and general Dr ebony Hernandez. Meg wants him to walk from the car drop off at the front into the waiting room. Discussed that he is not able to walk that far at this time. Instructed her that he needs to use the wheel chair from the car into the waiting area. She continued to be agitated. Discussed with her that he is safe in the waiting room and she could leave him here for therapy and take a break. She did leave at that time.
--- NOTE | 2024-06-04 14:32 | OTOPEVAL1 ---
Assessment and note entered by Mane Silveira, ARELIS/Sunil, CHT Evaluation Information 06/04/24 Assessment Status Evaluation Diagnosis abnormalities of gait and mobility, normal pressure hydrocephalus Subjective Information Patient referred to OT with several diagnoses - abnormalities of gait and mobility, unspecified symptoms and signs involving cognitive functions and awareness, normal pressure hydrocephalus, disorientation, and cerebral infarction. He is also working with PT at our clinic for his mobility. He presents today for his OT evaluation displaying signs of very limit safety awareness, almost falling in our waiting room. He is a poor historian and his significant other did not stay for therapy. Per EMR he was admitted to [facility] inpatient rehab in April for ataxic gait and neurocognitive and behavioral changes. He was admitted back to the hospital due to aggressive behavior. Has been experiencing multiple falls at home. He reports he subjectively feels weak. Unable to state whether he has assistance with ADLs at home. He required a wheelchair assist to our therapy gym today. Very unsafe with his walker. Assessment OT Clinical Summary OT evaluation completed this afternoon. Patient presents with gross UE weakness, poor sitting balance, and impaired functional coordination. Skilled OT indicated to maximize functional strength, balance, and safety awareness to facilitate improved functional ADL participation. Plan of Care Interventions Therapeutic Exercise,Therapeutic Activities OT Services Indicated Yes Treatment Frequency and 2x/week for 8 visits Duration These treatments will address the objective and functional deficits as defined above. The patient will be advanced safely and appropriately in order for the patient to progress towards his/her prior level of function. Additional exercises will be introduced and as well as a comprehensive home exercise program upon discharge, if needed, ?to ensure carryover of functional gains achieved in the clinic. This treatment plan has been reviewed and agreement upon by the patient.
--- NOTE | 2024-06-04 14:33 | OPREHPOC ---
Outpatient Therapy Plan of Care This is a Multidisciplinary Plan of Care that may contain components documented by all disciplines (PT, OT, and ST.) PT Problem 1 PT Problem #1 Knowledge Deficit PT Goal 1 Goal / Goal Update *indep with HEP * pt use correct technique with sit/stand transfer Target Visit 10 PT Problem 2 PT Problem #2 Impaired Strength PT Goal 1 Goal / Goal Update increase R and L LE strength, to improve transfer and gait skills: 1* supine strengthening exercises x 20 reps 2* sit/stand transfer indep 3* with walking- step length pass other foot Target Visit 10 PT Problem 3 PT Problem #3 Impaired Functional Mobil PT Goal 1 Goal / Goal Update 1* supine to sit indep 2* pt ambulate with wheeled walker, 75' indep on level surface 3* TUG with wheeled walker 60 seconds 4* pt and Meg report NO falls Target Visit 10 OT Problem 1 OT Problem #1 Knowledge Deficit OT Goal 1 Goal / Goal Update 1. Patient/spouse to be indep. with HEP. Target Visit 8 OT Problem 2 OT Problem #2 Impaired Strength OT Goal 1 Goal / Goal Update Patient to increase functional strength as demonstrated by: 1. being able to complete shoulder/scapular strengthening exericses while sitting unsupported x10 minutes edge of mat 2. not leaning to the right in the wheelchair 3. being able to complete bilateral elbow and wrist strengthening with 3 lbs x10 reps 4. increasing bilateral neurophysiological technician strengths by 5 lbs. Target Visit 8
--- NOTE | 2024-06-09 15:57 | STOPEVAL1 ---
Assessment and note entered by Dasha Roca, GENERAL MANAGER [employer] Reported Pain Level Pain Score 0: Self Report Assessment ST Clinical Summary COGNITIVE EVALUATION Patient was seen for a cognitive evaluation after exhibiting disorientation and other cognitive deficits that accompanied generalized weakness and multiple falls since hospitalization in April of 2024. Patient is also being seen by Physical Therapy. Today when asked why patient came to Speech Therapy, he first stated that he went to see a obdulia this morning who sent him over to our building. When told that this was actually scheduled for last week (prior to today's visit), then he stated that he has had rehab in the past. When asked if he had had a stroke, the patient stated he couldn't tell me if he had had a CVA but he stated one obdulia told me (that he had had a CVA). Later he admitted to having memory problems at times. Portions of the [employer] Information Processing Assessment (RIPA) and the [facility] cognitive evaluation were presented. Patient performed as follows: Immediate Memory: 21/30 points. Severe deficits. Recent Memory: 24/30 points. Severe deficits. Temporal Orientation (Recent Memory): 23/40 points. Severe deficits. [facility] Cognitive Evaluation Biographical Information: 80% acc. Problem Solvin% acc. Sequencin% acc. Categorization: 60% acc. Difficulty determining which item does not belong. Functional Math: 40% acc. Auditory Processin% acc. Based on above mentioned results, patient exhibits a moderate to severe cognitive deficit characterized as difficulty with recall and thought processing that includes functional math, using clues to determine appropriate responses, and solving common problems. Patient will be seen twice weekly for 10 visits to address above mentioned deficits in order to improve his independence for ADL's and communication with partner and family members. Patient and caregiver were in agreement with recommendations. Thank you for this referral. Plan of Care Interventions Treatment for Cognitive F These treatments will address the objective and functional deficits as defined above. The patient will be advanced safely and appropriately in order for the patient to progress towards his/her prior level of function. Additional exercises will be introduced and as well as a comprehensive home exercise program upon discharge, if needed, ?to ensure carryover of functional gains achieved in the clinic. This treatment plan has been reviewed and agreement upon by the patient.
--- NOTE | 2024-06-09 16:10 | OPREHPOC ---
Outpatient Therapy Plan of Care This is a Multidisciplinary Plan of Care that may contain components documented by all disciplines (PT, OT, and ST.) PT Problem 1 PT Problem #1 Knowledge Deficit PT Goal 1 Goal / Goal Update *indep with HEP * pt use correct technique with sit/stand transfer Target Visit 10 PT Problem 2 PT Problem #2 Impaired Strength PT Goal 1 Goal / Goal Update increase R and L LE strength, to improve transfer and gait skills: 1* supine strengthening exercises x 20 reps 2* sit/stand transfer indep 3* with walking- step length pass other foot Target Visit 10 PT Problem 3 PT Problem #3 Impaired Functional Mobil PT Goal 1 Goal / Goal Update 1* supine to sit indep 2* pt ambulate with wheeled walker, 75' indep on level surface 3* TUG with wheeled walker 60 seconds 4* pt and Meg report NO falls Target Visit 10 OT Problem 1 OT Problem #1 Knowledge Deficit OT Goal 1 Goal / Goal Update 1. Patient/spouse to be indep. with HEP. Target Visit 8 OT Problem 2 OT Problem #2 Impaired Strength OT Goal 1 Goal / Goal Update Patient to increase functional strength as demonstrated by: 1. being able to complete shoulder/scapular strengthening exericses while sitting unsupported x10 minutes edge of mat 2. not leaning to the right in the wheelchair 3. being able to complete bilateral elbow and wrist strengthening with 3 lbs x10 reps 4. increasing bilateral sales and marketing engineer strengths by 5 lbs. Target Visit 8 ST Goal 1 Goal / Goal Update 1. Patient will voice and demonstrate understanding treatment plan, home exercise program, compensatory programs for cognitive impairment and risks and benefits related to direct Speech Therapy tasks. Target Visit [address] Problem #[address] Goal 1 Goal / Goal Update 1. Demonstrate recall of specific memory strategies 90% acc. 2. Choose appropriate memory strategies when presented with a variety of situations involving use of memory 90% of the time. 3. Improve immediate memory to 90% accuracy for 4- 5 related-word strings, 3-4 related number strings , and information in short to complex paragraphs stories. 4. Respond to reasoning questions related to the short stories with 90% acc. ST Goal 2 Goal / Goal Update 5. Patient will complete functional math activities with 90% accuracy including math for the passage of time and money skills. 6. Patient will complete functional math for the passing of time, forwards and backwards, with 90% accuracy, within 15 seconds after presentation of stimulus. ST Problem 3 ST Problem #[address] Goal 1 Goal / Goal Update 7. Patient will complete convergent naming tasks with 90% acc. in order to improve recall and thought processing/reasoning accurately. 8. Patient will state which item from a choice of 4 does not belong in order to improve thought processing/reasoning accurately. 9. Patient will demonstrate understanding of short stories by responding to inference questions with 90% acc. Target Visit 8
--- NOTE | 2024-06-23 08:13 | PCSTNOTE ---
Patient cancelled therapy visits this date due to having to attend a dentist appointment.
--- NOTE | 2024-07-08 13:44 | PCOTNOTE ---
Pt. arrived for therapy services, but had to leave, cancelling Occupational Therapy treatment
--- NOTE | 2024-07-08 14:00 | PCPTNOTE ---
Pt not seen this date because he had an accident and his clothes were saturated in urine. Discussion with pt and Meg(friend) that he must wear depends from now on. He is to bring a bag with fresh clothes and a second depends in case this were to happen again. HEALTH EDITOR/Patien and friend Meg in agreement. AKS
--- NOTE | 2024-07-12 13:52 | PCSTNOTE ---
Patient cancelled tomorrow 07/13 due to follow-up dentist appointment.
--- NOTE | 2024-07-15 11:01 | OTOPDC ---
Assessment and note entered by ARELIS Minor/Sunil, CHT OT Discharge Notification 07/15/24 Diagnosis abnormalities of gait and mobility, normal pressure hydrocephalus Subjective Information Patient presents today for his OT re-evaluation. Upon arrival he was sitting upright in his wheelchair, not leaning over like he was at the initial evaluation. He reports he is feeling stronger and that he is doing better at home and doing more at home . He states he dressed himself this morning. Reported Pain Level Pain Score 0: Self Report Assessment OT Clinical Summary Patient participated in the OT re-evaluation this morning. He demonstrates progress with improved gross functional strength and sitting balance. His functional transfers improved from moderate assist to stand by assist. His gross upper body strength improved to functional limits. Right shoulder improved from 80 degrees of flexion to 110 degrees. Bilateral video control engineer strength improved to functional limits. He was able to sit unsupported for 10+ minutes today for therapeutic exercises and activities without UE support and no loss of balance. Overall he is more alert and participatory. He has not been doing his HEP. At this time the patient has met his functional goals with OT. Discharge at this time. Plan of Care OT Services Indicated No
--- NOTE | 2024-07-15 12:04 | STOPDC ---
Assessment and note entered by Dasha Roac, PAPER MILL SUPERVISOR Evaluation Information Assessment Status Evaluation Reported Pain Level Pain Score 0: Self Report Pain Score 0: Self Report Assessment ST Clinical Summary COGNITIVE EVALUATION Patient was seen for a re-evaluation of cognitive skills after being seen for a cognitive evaluation and four treatment sessions focusing on orientation and other cognitive skills. Throughout these sessions, patient exhibited minimal interest in therapy tasks; he responded but with minimal to no effort. For example, when asked what day it was, he always would say , whether or not it was . Frequently he would say, I don't know or just offer what appeared to be a guess. He also had to use the rest room every session which disrupted the session and/or took away from his ability to focus; he possibly used this as an excuse to leave the session. During this re-evaluation, he was asked if therapy has been helpful, what was helpful , and if he would want to continue however, pateint then indicated he did not want to continue in Speech Therapy. He is being discharged this date with no significant progress made. Portions of the [place] Information Processing Assessment (RIPA) and the [facility] cognitive evaluation were re-administered to assess any changes. Patient performed as follows: Immediate Memory: TODAY: 23/30 points. INITIALLY: 21/30 points. Severe deficits. Recent Memory: TODAY: 14/30 points. INITIALLY: 24/30 points. Severe deficits; decreased score is most likely due to patient's poor interest/ motivation. Temporal Orientation (Recent Memory): INITIALLY: 23/40 points. Severe deficits. Not re-tested secondary to poor response to Recent Memory subtest. [facility] Cognitive Evaluation Biographical Information: 80% acc. Problem Solving: TODAY: therapist requested the emergency number, 911, and patient insisted 411 . When asked about a cut on his finger, he stuck his finger in his mouth which is most likely what he would do, but then stated he would call 411 and unable to express washing/bandaid. When asked about what he would do if he received a bill in the mail for something he already paid, he indicated he would throw it out and not until therapist cues did he state he would show them the receipt. INITIALLY: 70% acc. These areas were not addressed this date as patient requested to use the bathroom and then go to the waiting to wait for his significant other. Sequencin% acc. Categorization: 60% acc. Difficulty determining which item does not belong. Functional Math: 40% acc. Auditory Processin% acc. Patient continues to exhibit a moderate to severe cognitive deficit characterized as difficulty with recall and thought processing that includes functional math, using clues to determine appropriate responses, and solving common problems. In fact, possibly due to declining cognitive status or poor motivation to participate, his recall, temporal orientation, and problem solving skills have declined. Since patient decided to not continue, Meg, his significant other, was notified of plan to discontinue at this time. Goals were not achieved due to early discharge, decline in status, or possible poor motivation. Plan of Care ST Services Indicated No
--- NOTE | 2024-07-20 13:19 | PCPTNOTE ---
Called and canceled due to a fall last night. AKS
--- NOTE | 2024-07-22 13:35 | PCPTNOTE ---
Called and canceled due to fall this week. AKS
--- NOTE | 2024-07-27 11:29 | PCPTNOTE ---
Pt called and canceled due to fall last week. AKS
--- NOTE | 2024-07-29 13:43 | PCPTNOTE ---
No call no show, reason unknown. Attempted to call pt and friend this date however voice mssg boxs are not set up for either. AKS
--- NOTE | 2024-08-03 14:23 | OPREHPOC ---
Outpatient Therapy Plan of Care This is a Multidisciplinary Plan of Care that may contain components documented by all disciplines (PT, OT, and ST.) PT Problem 1 PT Problem #1 Knowledge Deficit PT Goal 1 Goal / Goal Update *indep with HEP * pt use correct technique with sit/stand transfer Target Visit 10 Progress Not Met PT Goal 2 Goal / Goal Update 08-03-24 progress goals not met continue towards goals Target Visit 11 PT Problem 2 PT Problem #2 Impaired Strength PT Goal 1 Goal / Goal Update increase R and L LE strength, to improve transfer and gait skills: 1* supine strengthening exercises x 20 reps 2* sit/stand transfer indep 3* with walking- step length pass other foot Target Visit 10 Progress Partially Met PT Goal 2 Goal / Goal Update 08-03-24 progress goals 1,2 met NEW GOALS 1* sit/stand transfer with correct technique, without verbal reminders 2* sit to stand performed on first trial 3* walking with step length pass other foot Target Visit 11 PT Problem 3 PT Problem #3 Impaired Functional Mobil PT Goal 1 Goal / Goal Update 1* supine to sit indep 2* pt ambulate with wheeled walker, 75' indep on level surface 3* TUG with wheeled walker 60 seconds 4* pt and Meg report NO falls Target Visit 10 Progress Partially Met PT Goal 2 Goal / Goal Update 08-03-24 progress goal 1 met continue with goals 2,3,4 ADD 5* Tinetti balance/gait score of 17/28 Target Visit 11 OT Problem 1 OT Problem #1 Knowledge Deficit OT Goal 1 Goal / Goal Update 1. Patient/spouse to be indep. with HEP. ---OT D/C 07/15/24--- 1. Not able to assess, he reports he does not do exercises at home, significant other not present today Target Visit 8 OT Problem 2 OT Problem #2 Impaired Strength OT Goal 1 Goal / Goal Update Patient to increase functional strength as demonstrated by: 1. being able to complete shoulder/scapular strengthening exericses while sitting unsupported x10 minutes edge of mat 2. not leaning to the right in the wheelchair 3. being able to complete bilateral elbow and wrist strengthening with 3 lbs x10 reps 4. increasing bilateral car tester strengths by 5 lbs. ---OT D/C 07/15/24--- 1. met 2. met 3. met 4. met Target Visit 8 ST Goal 1 Goal / Goal Update 1. Patient will voice and demonstrate understanding treatment plan, home exercise program, compensatory programs for cognitive impairment and risks and benefits related to direct Speech Therapy tasks. Target Visit [address] Problem 2 [address] Problem #[address] Goal 1 Goal / Goal Update 1. Demonstrate recall of specific memory strategies 90% acc. 2. Choose appropriate memory strategies when presented with a variety of situations involving use of memory 90% of the time. 3. Improve immediate memory to 90% accuracy for 4- 5 related-word strings, 3-4 related number strings , and information in short to complex paragraphs stories. 4. Respond to reasoning questions related to the short stories with 90% acc. Target Visit [address] Goal 2 Goal / Goal Update 5. Patient will complete functional math activities with 90% accuracy including math for the passage of time and money skills. 6. Patient will complete functional math for the passing of time, forwards and backwards, with 90% accuracy, within 15 seconds after presentation of stimulus. Progress Not Met ST Problem 3 ST Problem #[address] Goal 1 Goal / Goal Update 7. Patient will complete convergent naming tasks with 90% acc. in order to improve recall and thought processing/reasoning accurately. 8. Patient will state which item from a choice of 4 does not belong in order to improve thought processing/reasoning accurately. 9. Patient will demonstrate understanding of short stories by responding to inference questions with 90% acc. Target Visit 8 Progress Not Met
--- NOTE | 2024-08-03 14:23 | PTOPPROG ---
Assessment and note entered by Dianne Luna, PT Progress Report Assessment Status Progress ICD-10 Condition Codes (PT) Difficulty Walking R26.2,R26.9,Weakness R53.1 Onset March 2024 Subjective Information pt and significant other Meg report: last fall about 2 weeks ago- walking with walker and trying to carry a glass, and fall with standing and taking off shirt; going to see neurosurgeon on Fri about draining some fluid from his brain. she reports he is walking more in the house and using the cane some. Have not been going out into the community. Assessment PT Clinical Summary Paul has received 3 PT sessions. He has called/ canceled 5 and did not show for 1 appointment. He has had multiple falls since attending therapy. Compared to the initial evaluation: improved with supine/sit and sit/stand transfers- is now indep or CGA for safety for verbal cues for technique; improved sitting balance; TUG time from 100 seconds to 80 seconds; 2 minute walking with wheeled walker from 20' to 45'; Tinetti balance/gait score from 7/28 to 10/28; he is using the wheeled walker or large base quad cane to walk; Skilled PT services are indicated to improve LE strength, transfer skills and safety education, gait and balance retraining to improve mobility and decrease risk for falls. Plan of Care Interventions Gait Training,Neuro Re-education,Patient/Caregiver Education,Therapeutic Activities,Therapeutic Exercise PT Services Indicated Yes Treatment Frequency and 2x/wk for 8 visits Duration These treatments will address the objective and functional deficits as defined above. The patient will be advanced safely and appropriately in order for the patient to progress towards his/her prior level of function. Additional exercises will be introduced and as well as a comprehensive home exercise program upon discharge, if needed, ?to ensure carryover of functional gains achieved in the clinic. This treatment plan has been reviewed and agreement upon by the patient.
--- NOTE | 2024-08-03 14:24 | PCPTNOTE ---
during today's reevaluation, discussed with pt and significant other Meg-- the importance of attending PT. He has had 1 no show and 5 canceled appts. She stated he will be here for appointments. Pt voiced that he can do therapy at home and did not want to come in here anymore. Discussed with Meg that they have to decide if it is too much of a kunz to get him here and he has to be willing to work and perform therapy. They voiced understanding.
--- NOTE | 2024-08-05 14:32 | PCPTNOTE ---
Pt cancelled due to fall earlier this week and still sore from it today. Meg stated he will be to therapy next week.
--- NOTE | 2024-08-10 13:53 | PCPTNOTE ---
Called and canceled, pt fell. AKS
--- NOTE | 2024-08-12 13:40 | PCPTNOTE ---
No call no show, reason unknown. AKTaylor
--- NOTE | 2024-08-12 15:02 | PCPTNOTE ---
Addendum for 08-12-24 Patricia left mssg to cancel appt. reason unknown. AKS
--- NOTE | 2024-08-24 15:43 | PCPTNOTE ---
Therapy again has extended the number of missed treatments due to C/C & N /S. Left [facility] with Meg to discuss a viable option for pt to have home therapy then advance to OP. Asked for her to return call. Recom remove pt from schedule. Awaiting call back at this time. ARTEMS
--- NOTE | 2024-08-25 11:50 | PCPTNOTE ---
Called Meg/pts caregiver again today and left [facility]. Mr. Kaur' appt has been canceled for tomorrow due to the exceeded missed scheduled treatments. Asked pt to call to discuss other viable options for Mr. Hernandez. KARMA
--- NOTE | 2024-08-26 11:51 | PTOPDC ---
Assessment and note entered by Dianne Luna, PT Discharge Report Assessment Status Discharge - Pt Not Present ICD-10 Condition Codes (PT) Difficulty Walking R26.2,R26.9,Weakness R53.1 Onset March 2024 Subjective Information pt was not seen this date; JOB COMPOSITOR talked with caregiver Ivy on the phone this AM and she agreed to d/c PT at this time. Assessment PT Clinical Summary Paul has received 4 PT sessions. He did not show for 3 appointments and called/canceled 6 appointments. Caregiver reports pt is doing to have surgery to remove pressure on his head. Discharge PT services, due to not attending and going to have surgery--date not yet scheduled. The goals were not addressed. Plan of Care PT Services Indicated No
--- NOTE | 2024-08-26 11:53 | PCPTNOTE ---
Spoke with Mr. Kaur' caregiver this morning. He is waiting to have a shunt placed in brain to remove fluid. Meg will keep us updated as this will be scheduled. For now Mr. Hernandez will not be scheduled for OUT-PATIENT PT. KARMA
== END 2024-08-26 14:55 | disposition home or self-care (01) ==
LOC: ANHPT 13:15
PROVIDERS: PCP Family Medicine; Visit Provider Family Medicine
DX: I69.318 Other symptoms and signs involving cognitive functions following cerebral infarction (principal); I69.311 Memory deficit following cerebral infarction; G91.2 (Idiopathic) normal pressure hydrocephalus; R26.9 Unspecified abnormalities of gait and mobility; R41.0 Disorientation, unspecified
CPT/HCPCS: 92507; 96125; 97110; 97116; 97162; 97165; 97530

== ENCOUNTER 2024-08-24 17:02 | Outpatient (CLI) | payer MEDICARE, SELFPAY ==
[2024-08-24 19:05] LABS: Hemoglobin A1C 12.5 % (<5.7)
== END 2024-08-24 17:03 | disposition home or self-care (01) ==
LOC: ANHLAB 17:04
PROVIDERS: PCP Family Medicine; Visit Provider Neurological Surgery
DX: E11.9 Type 2 diabetes mellitus without complications (principal)
CPT/HCPCS: 36415; 83036

== ENCOUNTER 2024-11-10 06:36 | Emergency (ER) | payer MEDICARE, SELFPAY ==
--- NOTE | ~2024-11-10 | CT_ITS ---
EXAMINATION: CT BRAIN W/O DATE: 11/10/2024 07:24 INDICATION: Frequent falls. TECHNIQUE: Computed tomography (CT) of the head was performed without intravenous contrast. The dose- length product was 605.33 mGy-cm. COMPARISON: CT dated 05/17/2024 FINDINGS: Generalized atrophy. There are scattered mild periventricular and subcortical white matter changes, most likely related to small vessel ischemic disease (microangiopathy). No ventriculomegaly or midline shift. Basilar cisterns are patent. There is intracranial atherosclerosis. Possible tiny v entricular hemorrhage, right lateral ventricle, image 42. No ventriculomegaly or midline shift. Midline sagittal images demonstrate a normal corpus callosum, c raniovertebral junction and sella turcica. Basilar cisterns are patent. Paranasal sinuses and mastoids are pneumatized. No depressed skull fractures. IMPRESSION: 1. Possible punctate hemorrhage along the lateral wall of the right ventricle., Coronal image 39. Thi s was not present on prior CT. 2: Chronic age-related findings. Reviewed, dictated and finalized at location A. P SPECIALIST IMPRESSION: 1. Possible punctate hemorrhage along the lateral wall of the right ventricle., Coronal image 39. This was not present on prior CT. 2: Chronic age-related findings.
--- NOTE | ~2024-11-10 | CT_ITS ---
EXAMINATION: CTA brain carotid DATE: 11/10/2024 08:13 INDICATION: Intracranial hemorrhage. TECHNIQUE: Computed tomographic angiography (CTA) of the head was performed without and with 100 mL O mnipaque-350 intravenous contrast. CTA of the neck was performed with intravenous contrast. Automated exposure control and iterative reconstruction technique were employed. The dose-length product was 1 000.58 mGy-cm. Maximum intensity projection and volume rendered 3D-reconstructions were created by michele cotton technologist on a separate workstation. COMPARISON: Head CT 11/10/2024, 05/17/24 FINDINGS: HEAD CTA: There is a small volume of acute hematoma in the right lateral ventricle. There is no acute ischemic infarct or abnormal mass lesion. There are scattered areas of low attenuation in the cerebr al white matter. The ventricles are normal in size. The orbits are normal. There is mild mucosal thic kening in the ethmoid sinuses. The mastoid air cells are normal. Left vertebral artery is dominant. T here is no significant stenosis of basilar artery or the posterior cerebral arteries. There is no sig nificant stenosis of the intracranial internal carotid arteries or anterior or middle cerebral arteri es. Anterior communicating artery is normal. The posterior communicating arteries are normal. There i s no aneurysm. NECK CTA: There are no pathologically enlarged lymph nodes. There is no significant stenosis of the v ertebral arteries. There is plaque in the proximal internal carotid arteries. There is 0% stenosis of the proximal right internal carotid artery relative to normal distal artery lumen diameter (NASCET c riteria). There is 0% stenosis of the proximal left internal carotid artery relative to normal distal artery lumen diameter. There is severe cervical spondylosis. IMPRESSION: 1. Small volume of acute hematoma in the right lateral ventricle. 2. Moderate nonspecific cerebral white matter disease, which likely represents chronic small vessel i schemic disease. 3. No aneurysm or significant intracranial canal stenosis. 4. 0% stenosis of the proximal internal carotid arteries relative to normal distal artery lumen diame ters (NASCET criteria). Reviewed, dictated and finalized at location A. PORTAL DEVELOPER IMPRESSION: 1. Small volume of acute hematoma in the right lateral ventricle. 2. Moderate nonspecific cerebral white matter disease, which likely represents chronic small vessel ischemic disease. 3. No aneurysm or significant intracranial canal stenosis. 4. 0% stenosis of the proximal internal carotid arteries relative to normal dis hay[place] artery lumen diameters (NASCET criteria).
[2024-11-10 06:50] VITALS: BP 141/93; PULSE 79; RESP 16; TEMP 36.6; O2SAT 99
[2024-11-10 06:51] LABS: Glucose Point of Care 163 mg/dl (65-105)
--- NOTE | 2024-11-10 07:00 | ECG_ITS ---
Test Date: 2024-11-10 07:10:13 Measurements Intervals [place] Rate: 79 P: -8 IN: 125 QRS: -9 QRSD: 85 T: 49 QT: 376 QTc: 432 Interpretive Statements SINUS RHYTHM LOW QRS VOLTAGE IN PRECORDIAL LEADS [QRS DEFLECTION < 1.0 mV IN CHEST LEADS] POSSIBLE ANTERIOR MYOCARDIAL INFARCTION , OF INDETERMINATE AGE [30 ms Q WAVE IN V3/V4, OR R < 0.2 mV IN V4] PROBABLE INFERIOR MYOCARDIAL INFARCTION , PROBABLY OLD [35 ms Q WAVE IN II/aVF] Compared to ECG 05/03/2024 12:42:46 NO SIGNIFICANT CHANGES Electronically Signed On 11-10-2024 16:03:13 HOTEL SUPERINTENDENT by Hali Pineda M.D.
[2024-11-10 07:18] LABS: Basophils Percent Auto 0.1 % (0.2-1.2); Eosinophils Absolute Auto 0.1 K/mm3 (0-0.3); Eosinophils Percent Auto 1.6 % (0-4.4); Hematocrit 44.2 % (42.0-52.0); Hemoglobin 14.9 g/dL (14.0-18.0); Immature Granulocyte Absolute 0.03 K/mm3 (0.00-0.031); Immature Granulocyte Percent A 0.4 % (0-0.5); Lymphocytes Absolute Auto 1.42 K/mm3 (0.9-3.2); Lymphocytes Percent Auto 20.7 % (18.3-44.2); Mean Corpuscular HGB Conc 33.7 g/dl (32-36); Mean Corpuscular Hemoglobin 31.6 pg (26-34); Mean Corpuscular Volume 93.6 fl (80-100); Mean Platelet Volume 8.9 fl (7.4-10.4); Monocytes Absolute Auto 0.6 K/mm3 (0.1-0.6); Monocytes Percent Auto 9.2 % (2.6-8.5); Neutrophils Absolute Auto 4.7 K/mm3 (1.3-6.7); Platelet Count Result 175 k/mm3 (150-375); Red Blood Count 4.72 M/mm3 (4.6-6.20); Red Cell Distribution Width 12.5 % (11.5-14.5); White Blood Count 6.9 K/mm3 (4.5-10.0)
[2024-11-10 07:25] LABS: Alanine Aminotransferase 23 U/L (6-50); Albumin Level 3.9 g/dL (3.5-5.1); Alkaline Phosphatase 103 U/L (38-126); Anion Gap 8 mmol/L (4-12); Aspartate Amino Transferase 30 U/L (17-59); Bilirubin,Total 0.5 mg/dL (0.2-1.3); Blood Urea Nitrogen 26 mg/dL (9-20); Calcium 9.1 mg/dL (8.4-10.2); Carbon Dioxide 27 mmol/L (22-30); Chloride 103 mmol/L (98-107); Estimated CRCL calculation 77 ml/min; Estimated Glomerular Filt Rate > 60; Glucose 158 mg/dL (65-110); Potassium 4.3 mmol/L (3.4-5.0); Sodium 138 mmol/L (137-145)
[2024-11-10 07:36] VITALS: BP 140/91; PULSE 78; RESP 13; O2SAT 99
[2024-11-10 07:39] LABS: INR 1.1; Prothrombin Time 14.5 Seconds (11.1-14.7)
--- NOTE | 2024-11-10 07:48 | ED.GENADULT ---
HPI - General Adult General Chief complaint: Fall Stated complaint: fall x 2 in 12 hours Time Seen by Provider: 11/10/24 06:55 History of Present Illness HPI narrative: 68-year-old male presenting to the emergency department for evaluation after having a ground level fall. Patient has been having more frequent falls lately. Patient does have an abrasion to his forehead. Patient denies any current pain. Patient is well-appearing. Related Data Home Medications ?Medication ?Instructions ?Recorded ?Confirmed ?Last Taken ?Type aspirin 81 mg tablet,delayed 81 mg PO DAILY 08/30/19 09/22/24 04/15/24 09:00 History release multivitamin 1 cap PO DAILY 08/30/19 09/22/24 04/15/24 09:00 History Allergies Allergy/AdvReac Type Severity Reaction Status Date / Time No Known Allergies Allergy Verified 11/10/24 09:55 Review of Systems Review of Systems: All systems reviewed & are unremarkable except as noted in HPI and below PMFSH Past Medical History Medical History Anemia Normal acid-base balance Delusional disorder Diabetic peripheral neuropathy Intermittent confusion CHF (congestive heart failure) Diabetes mellitus with hyperglycemia Bladder incontinence Normal pressure hydrocephalus Cerebrovascular accident (CVA) Recurrent falls Hypertensive heart disease with heart failure Iron deficiency anemia Autonomic neuropathy Ataxia Overweight Microalbuminuria Abnormal electroretinogram [ERG] 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 He is a lifelong nonsmoker. He drinks alcohol on occasion. He does smoke marijuana on occasion as well. Code status: Full code Surrogate decision maker: Girlfriend Smoking status: Never smoker Second hand tobacco smoke exposure: No Alcohol intake: current Substance use: current Substance use type: marijuana Other substance usage details: monthly or less Do You Feel Safe in your Home?: Yes Lack of Transportation: No Lack of Food: Never True Current Housing: I Have Housing Concerned About Future Housing: No Difficulty Paying Gas/Electric Bills: No Difficulty Paying for Meds: No Currently Unemployed: No Education: High School Diploma/GED Difficulty w/ Childcare or Family Care: No Living arrangements: with family Occupation/Education: retired 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 Gender identity (if verbalized by the patient): Male Spiritual care concerns: No Exam Narrative: APPEARANCE: Well appearing, no pain, no distress, well-nourished. HEAD: normocephalic, abrasion to forehead. EYES: PERRLA/EOMI, conjunctivae clear. NOSE: Normal no drainage EARS:TMS clear with good light reflex. THROAT: Pharynx clear, no exudate. NECK: Supple. No adenopathy, no masses. RESPIRATORY: Airway patent, respirations nonlabored. Clear to auscultation bilaterally, no rales, rhonchi, wheezing. CARDIOVASCULAR: Regular rate and rhythm without murmurs rubs or gallops. ABDOMINAL: Soft, nontender, nondistended, normal bowel sounds MUSCULOSKELETAL: Moves all extremities. Strength/ROM intact, No edema, No calf tenderness. NEURO: Alert. Cranial nerves II through XII intact. Good gait. Good coordination SKIN: Warm, dry. Normal Color Course Vital Signs Vital signs: Vital Signs Temperature 97.8 F 11/10/24 06:50 Pulse Rate 79 11/10/24 06:50 Respiratory Rate 16 11/10/24 06:50 Blood Pressure 141/93 H 11/10/24 06:50 Pulse Oximetry 99 11/10/24 06:50 Oxygen Delivery Room Air 11/10/24 06:50 Temperature 97.8 F 11/10/24 06:50 Pulse Rate 82 11/10/24 10:01 Respiratory Rate 14 11/10/24 10:01 Blood Pressure 133/95 H 11/10/24 10:01 Pulse Oximetry 100 11/10/24 10:01 Oxygen Delivery Room Air 11/10/24 06:50 Medical Decision Making MDM Narrative Medical decision making narrative: 68-year-old male presenting emergency department for evaluation for increased falls. Head CT did show concern for punctate bleed in the right ventricle so CTA was ordered and does show acute bleeding within the right ventricle with hematoma. Patient is established at [facility]. Patient and family are updated on the results of the CT scan and urgency for transfer. Patient reportedly does have known fluid on the brain and is scheduled for shunt placement by Neurosurgery per . CT scan was concerning for acute bleed so this was concerning as a different issue Differential Diagnosis Differential Diagnosis: Subdural hematoma, subarachnoid hemorrhage, skull fracture, normal pressure hydrocephalus, COVID, influenza Vital Signs Vital Signs: Vital Signs Temperature 97.8 F 11/10/24 06:50 Pulse Rate 79 11/10/24 06:50 Respiratory Rate 16 11/10/24 06:50 Blood Pressure 141/93 H 11/10/24 06:50 Pulse Oximetry 99 11/10/24 06:50 Oxygen Delivery Room Air 11/10/24 06:50 Temperature 97.8 F 11/10/24 06:50 Pulse Rate 82 11/10/24 10:01 Respiratory Rate 14 11/10/24 10:01 Blood Pressure 133/95 H 11/10/24 10:01 Pulse Oximetry 100 11/10/24 10:01 Oxygen Delivery Room Air 11/10/24 06:50 Lab Data Lab results reviewed: Yes I reviewed the patient's lab results. 11/10/24 07:09 11/10/24 07:09 Labs: Lab Results 11/10/24 11/10/24 11/10/24 Range/Units 06:49 07:09 07:43 WBC 6.9 (4.5-10.0) K/mm3 RBC 4.72 (4.6-6.20) M/mm3 Hgb 14.9 (14.0-18.0) g/dL Hct 44.2 (42.0-52.0) % MCV 93.6 (80-100) fl MCH 31.6 (26-34) pg MCHC 33.7 (32-36) g/dl RDW 12.5 (11.5-14.5) % Plt Count 175 (150-375) k/mm3 MPV 8.9 (7.4-10.4) fl Immature Gran % (Auto) 0.4 (0-0.5) % Neut % (Auto) 68.0 (45.5-73.1) % Lymph % (Auto) 20.7 (18.3-44.2) % Jennings % (Auto) 9.2 H (2.6-8.5) % Eos % (Auto) 1.6 (0-4.4) % Baso % (Auto) 0.1 L (0.2-1.2) % Lymph # (Auto) 1.42 (0.9-3.2) K/mm3 Jennings # (Auto) 0.6 (0.1-0.6) K/mm3 Eos # (Auto) 0.1 (0-0.3) K/mm3 Baso # (Auto) 0.0 (0.0-0.1) K/mm3 Abs Immat Gran (auto) 0.03 (0.00-0.031) K/mm3 Absolute Neuts (auto) 4.7 (1.3-6.7) K/mm3 Absolute Nucleated RBC 0.000 (0.0-0.012) K/mm3 Nucleated RBC % 0.0 (0.0-0.2) % PT 14.5 (11.1-14.7) Seconds INR 1.1 APTT 32.0 (22.3-36.8) Seconds Sodium 138 (137-145) mmol/L Potassium 4.3 (3.4-5.0) mmol/L Chloride 103 (98-107) mmol/L Carbon Dioxide 27 (22-30) mmol/L Anion Gap 8 (4-12) mmol/L BUN 26 H (9-20) mg/dL Creatinine 0.86 (0.7-1.3) mg/dL Estim Creat Clear Calc 77 ml/min Estimated GFR > 60 (59 - ) Glucose 158 H (65-110) mg/dL POC Capillary Glucose 163 H (65-105) mg/dl Calcium 9.1 (8.4-10.2) mg/dL Total Bilirubin 0.5 (0.2-1.3) mg/dL AST 30 (17-59) U/L ALT 23 (6-50) U/L Alkaline Phosphatase 103 (38-126) U/L Total Protein 7.0 (6.3-8.2) g/dL Albumin 3.9 (3.5-5.1) g/dL Urine Color Yellow (Yellow) Urine Appearance Clear (Clear) Urine pH 6.0 (5.0-9.0) Ur Specific [place] 1.025 (1.001-1.035) Urine Protein 1+ H (Negative) mg/dL Urine Glucose (UA) 3+ H (Negative) mg/dL Urine Ketones Negative (Negative) mg/dL Ur Blood (Man) Negative (Negative) Urine Nitrate Negative (Negative) Urine Bilirubin Negative (Negative) Urine Urobilinogen 0.2 (<2.0) mg/dL Leukocyte Esterase Rfl Negative (Negative) SHANNAN/UL Urine RBC 0-2 (0-2) /hpf Urine WBC 0-5 (0-3) /hpf Ur Squamous Epith Cells None seen (Few) /hpf Urine Bacteria None seen /hpf Urine Casts 0-2 Imaging Data Radiologist's impression: Impressions Head CT 11/10/24 07:30 IMPRESSION: 1. Possible punctate hemorrhage along the lateral wall of the right ventricle., Coronal image 39. This was not present on prior CT. 2: Chronic age-related findings. Head/Neck CTA 11/10/24 08:22 IMPRESSION: 1. Small volume of acute hematoma in the right lateral ventricle. 2. Moderate nonspecific cerebral white matter disease, which likely represents chronic small vessel ischemic disease. 3. No aneurysm or significant intracranial canal stenosis. 4. 0% stenosis of the proximal internal carotid arteries relative to normal distal artery lumen diameters (NASCET criteria). Discharge Plan Discharge Clinical Impression: Bleeding in brain Patient Disposition: Acute Care Hospital Condition: Serious Patient Language: Maldivian Prescriptions: No Action memantine 10 mg tablet 10 mg PO BID Qty: 60 6RF pregabalin 100 mg capsule 100 mg PO DAILY Qty: 90 2RF multivitamin Capsule 1 cap PO DAILY aspirin 81 mg tablet,delayed release (DR/EC) 81 mg PO DAILY (DME) syringe (disposable) [Easy [place] Luer Lock Syringe] 3 mL syringe See Rx Instructions .ROUTE .MEDSUPPLY Qty: 25 3RF Rx Instructions: As directed (DME) safety needles 29 gauge x 1/2 needle See Rx Instructions .Route Qty: 50 0RF Rx Instructions: As directed for testosterone (DME) Blood Glucose Test Strip See Rx Instructions .MEDSUPPLY Qty: 100 1RF Rx Instructions: Use QAC and QHS with SSI (DME) blood-glucose meter Kit See Rx Instructions .MEDSUPPLY Qty: 1 0RF Rx Instructions: Use QAC and QHS with SSI (DME) lancets 33 gauge [facility] See Rx Instructions .Route Qty: 100 0RF Rx Instructions: QAC and QHS metformin 500 mg tablet extended release 24 hr 2,000 mg PO QPM Qty: 120 5RF insulin glargine [Lantus Solostar U-100 Insulin] 100 unit/mL (3 mL) insulin pen 15 unit subcut QPM Qty: 15 0RF memantine [Namenda Titration Juanjose] 5-10 mg tablets,dose pack See Rx Instructions PO PER PKG DIR Qty: 49 0RF Rx Instructions: PO PER PKG DIR , 10 g twice a day after that to continue dapagliflozin propanediol [Farxiga] 10 mg tablet See Rx Instructions .ROUTE .COMPLEX Qty: 90 0RF Dose Instruction: TAKE 1 TABLET BY MOUTH EVERY DAY Rx Instructions: TAKE 1 TABLET BY MOUTH EVERY DAY donepezil [Aricept] 10 mg tablet 10 mg PO QHS Qty: 90 3RF atorvastatin 40 mg tablet 40 mg PO DAILY Qty: 90 1RF cholecalciferol (vitamin D3) 1,250 mcg (50,000 unit) capsule 1,250 mcg PO WEEKLY Qty: 8 0RF (DME) FreeStyle Bobby 3 Plus Sensor Device See Rx Instructions .Route Qty: 1 0RF Rx Instructions: As directed with SSI (DME) FreeStyle Bobby 3 [place] Misc See Rx Instructions .Route Qty: 1 0RF Rx Instructions: As directed with SSI primidone [Mysoline] 50 mg tablet 100 mg PO TID Qty: 90 1RF insulin aspart U-100 [Novolog FlexPen U-100 Insulin] 100 unit/mL (3 mL) insulin pen See Rx Instructions .ROUTE .COMPLEX Qty: 15 0RF Dose Instruction: 1 SLIDING SCALE DOSE SUBCUTANEOUSLY BEFORE MEALS AND AT BEDTIME, MAX DAILY DOSE: 80 UNITS 150-200 3 UNITS, 201-250 6 UNITS, 251-300 9 UNITS, 301-350 12 UNITS, 350-400 15 UNITS >400 20 UNITS Rx Instructions: 1 SLIDING SCALE DOSE SUBCUTANEOUSLY BEFORE MEALS AND AT BEDTIME, MAX DAILY DOSE: 80 UNITS 150-200 3 UNITS, 201-250 6 UNITS, 251-300 9 UNITS, 301-350 12 UNITS, 350-400 15 UNITS >400 20 UNITS (DME) pen needle, diabetic [BD Ultra-Fine Orig Pen Needle] 29 gauge x 1/2 needle See Rx Instructions .ROUTE .MEDSUPPLY Qty: 100 0RF Rx Instructions: to be used with novolog sliding scale insulin quetiapine 25 mg tablet See Rx Instructions .ROUTE .COMPLEX Qty: 60 0RF Dose Instruction: TAKE 1 TABLET BY MOUTH EVERY 12 HOURS Rx Instructions: TAKE 1 TABLET BY MOUTH EVERY 12 HOURS amlodipine [Norvasc] 5 mg Tablet 5 mg PO DAILY Qty: 30 0RF lisinopril 20 mg Tablet 20 mg PO DAILY Qty: 30 0RF furosemide 20 mg Tablet 20 mg PO QAM Qty: 30 0RF Follow-up/Referrals: Jason Tian MD [Primary Care Provider] -
[2024-11-10 07:55] LABS: Add Urine Microscopic? YES; Appearance Urine Clear (Clear); Bacteria Urine None Seen /hpf; Bilirubin Urine Negative (Negative); Blood Urine Negative (Negative); Color Urine Yellow (Yellow); Glucose Urine UA 3+ mg/dL (Negative); Ketones Urine Negative (Negative); Leukocyte Esterase Ur Negative LEU/UL (Negative); Nitrate Urine Negative (Negative); Non Pathogenic Casts 0-2; Protein Urine 1+ mg/dL (Negative); RBC Urine 0-2 /hpf (0-2); Specific Grav Ur 1.025 (1.001-1.035); Squamous Epithelial Cell Urine None Seen /hpf (Few); Urobilinogen Urine 0.2 mg/dL (<2.0); WBC Urine 0-5 /hpf (0-3)
[2024-11-10 10:01] VITALS: BP 133/95; PULSE 82; RESP 14; O2SAT 100
== END 2024-11-10 10:45 | disposition short-term general hospital (02) ==
PROVIDERS: Emergency Provider Emergency Medicine; PCP Family Medicine
DX: S06.340A Traumatic hemorrhage of right cerebrum without loss of consciousness, initial encounter (principal); R29.6 Repeated falls; I50.9 Heart failure, unspecified; D50.9 Iron deficiency anemia, unspecified; E11.43 Type 2 diabetes mellitus with diabetic autonomic (poly)neuropathy; G91.2 (Idiopathic) normal pressure hydrocephalus; I11.0 Hypertensive heart disease with heart failure; Z95.5 Presence of coronary angioplasty implant and graft; Z86.73 Personal history of transient ischemic attack (TIA), and cerebral infarction without residual deficits; Z85.828 Personal history of other malignant neoplasm of skin; R90.82 White matter disease, unspecified; W18.30XA Fall on same level, unspecified, initial encounter; Z79.82 Long term (current) use of aspirin; Z79.84 Long term (current) use of oral hypoglycemic drugs; Z79.4 Long term (current) use of insulin; Z79.899 Other long term (current) drug therapy
CPT/HCPCS: 36415; 70450; 70496; 70498; 80053; 81001; 82948; 85025; 85610; 85730; 93005; 99285; Q9967